=== PATIENT | female | born 1930 | race Caucasian/White ===

== ENCOUNTER 2017-06-14 15:50 | Emergency (ER) | payer MEDICARE ==
[2017-06-14 16:21] LABS: #Basophils 0.1 thou/uL (0.0-0.2); #Eosinphils 0.1 thou/uL (0.0-0.7); #Lymphocytes 1.7 thou/uL (1.20-3.40); #Monocytes 0.5 thou/uL (0.11-0.59); %Basophils 0.8 % (0.0-1.0); %Lymphocytes 26.5 % (21.0-51.0); %Monocytes 8.4 % (0.0-10.0); %Neutrophils 62.3 % (42.0-75.0); Hemoglobin 11.5 g/dL (12.0-16.0); Mean Corpuscular HGB CONC 31.2 g/dL (32.0-36.0); Mean Corpuscular Hemoglobin 30.6 pg (27.0-31.0); Mean Corpuscular Volume 98.1 fl (81.0-99.0); Mean Platelet Volume 5.5 fL (7.4-10.4); Platelet Count 197 thou/uL (130-400); RBC Distribution Width 13.6 % (11.5-14.5); Red Blood Cell (RBC) Count 3.77 mill/uL (4.20-5.40); White Blood Cell (WBC) Count 6.4 thou/uL (4.8-10.8)
[2017-06-14 16:38] LABS: ALT (SGPT) 11 U/L (8-55); AST (SGOT) 16 U/L (5-34); Albumin 3.8 g/dL (3.4-4.8); Alkaline Phosphatase 87 U/L (40-150); Anion Gap 12 mmol/L (10-20); BUN (Urea Nitrogen) 21 mg/dL (9.8-20.1); Bilirubin, Total 0.5 mg/dL (0.2-1.2); Calc. Creatinine Clearance 0 mL/min (70-130); Calcium 9.1 mg/dL (7.8-10.44); Carbon Dioxide 33 mmol/L (23-31); Chloride 103 mmol/L (98-107); Estimated GFR-MDRD 47; Globulin 3.9 g/dL (2.4-3.5); Glucose 125 mg/dL (83-110); Potassium 4.5 mmol/L (3.5-5.1); Protein, Total 7.7 g/dL (6.0-8.3); Sodium 143 mmol/L (136-145)
[2017-06-14 16:40] LABS: CKMB 0.8 ng/mL (0-6.6)
[2017-06-14] MEDS ORDERED: Furosemide 40 MG/4 ML VIAL ONE (17:16)
--- NOTE | 2017-06-14 22:13 | RAD ---
CHEST TWO VIEWS: 06/14/17 Comparison is made with an 05/12/15 study. Mild cardiomegaly is approximately the same as before. There are no congestive changes. There is a l ittle streaking in the right costophrenic angle, which is new. I cannot exclude an early infiltrate there. The right hilum is rather prominent in size, more so than before. While it is probably all pu lmonary artery, this might be worth consideration of an elective CT to remove all doubt. I would won bebo about an infiltrate in the left lung base, but this is difficult to be sure of on this exam. Art eriosclerotic change is seen in the aorta. There is deviation of the trachea towards the right at th e thoracic inlet which is not new. Presumably there is a left thyroid goiter or other pathology. IMPRESSION: 1. Cardiomegaly without congestive change. 2. Arteriosclerosis. 3. COPD. 4. Slight streaking in the right costophrenic angle. Equivocal left basilar infiltrate or fluid . 5. Prominence of the right hilum, a bit more so than in 2015. 6. Deviation of the trachea at the thoracic inlet. RECOMMENDATION: Given the multiplicity of findings, I feel it would be quite helpful in this patient to consider an elective CT scan, with contrast if possible, to evaluate all of these areas better. Code T POS: HOME
== END 2017-06-14 17:56 | disposition short-term general hospital (02) ==
LOC: BURERS 15:50
DX: I11.0 Hypertensive heart disease with heart failure (principal); I50.9 Heart failure, unspecified; K58.9 Irritable bowel syndrome, unspecified; G62.9 Polyneuropathy, unspecified; F32.9 Major depressive disorder, single episode, unspecified; Z79.82 Long term (current) use of aspirin; Z79.899 Other long term (current) drug therapy
CPT/HCPCS: 71020; 80053; 82553; 83880; 84484; 85025; 93005; 96374; J1940

== ENCOUNTER 2017-06-27 16:34 | Outpatient (CLI) | payer MEDICARE ==
[2017-06-27 17:36] LABS: Anion Gap 18 mmol/L (10-20); BUN (Urea Nitrogen) 74 mg/dL (9.8-20.1); Calc. Creatinine Clearance 0 mL/min (70-130); Calcium 9.1 mg/dL (7.8-10.44); Carbon Dioxide 30 mmol/L (23-31); Chloride 100 mmol/L (98-107); Estimated GFR-MDRD 24; Glucose 95 mg/dL (83-110); Sodium 143 mmol/L (136-145)
== END 2017-06-27 16:35 | disposition home or self-care (01) ==
LOC: HPCALD 16:34
PROVIDERS: ATTEND Family Medicine
DX: I50.32 Chronic diastolic (congestive) heart failure (principal)
CPT/HCPCS: 80048

== ENCOUNTER 2017-11-15 16:04 | Emergency (ER) | payer MEDICARE ==
[2017-11-15 16:49] LABS: #Lymphocytes 1.1 thou/uL (1.20-3.40); #Monocytes 0.4 thou/uL (0.11-0.59); #Neutrophils 8.3 thou/uL (1.40-6.50); %Basophils 0.4 % (0.0-1.0); %Eosinophils 0.1 % (0.0-10.0); %Lymphocytes 11.5 % (21.0-51.0); %Monocytes 3.8 % (0.0-10.0); %Neutrophils 84.2 % (42.0-75.0); Hemoglobin 11.8 g/dL (12.0-16.0); Mean Corpuscular HGB CONC 34.1 g/dL (32.0-36.0); Mean Corpuscular Hemoglobin 33.4 pg (27.0-31.0); Platelet Count 181 thou/uL (130-400); RBC Distribution Width 12.7 % (11.5-14.5); Red Blood Cell (RBC) Count 3.52 mill/uL (4.20-5.40); White Blood Cell (WBC) Count 9.9 thou/uL (4.8-10.8)
[2017-11-15 16:56] LABS: ALT (SGPT) 10 U/L (8-55); AST (SGOT) 16 U/L (5-34); Albumin 3.7 g/dL (3.4-4.8); Alkaline Phosphatase 80 U/L (40-150); Anion Gap 17 mmol/L (10-20); BUN (Urea Nitrogen) 24 mg/dL (9.8-20.1); Bilirubin, Total 0.9 mg/dL (0.2-1.2); Calc. Creatinine Clearance 0 mL/min (70-130); Calcium 9.4 mg/dL (7.8-10.44); Carbon Dioxide 30 mmol/L (23-31); Chloride 102 mmol/L (98-107); Estimated GFR-MDRD 46; Globulin 3.5 g/dL (2.4-3.5); Glucose 139 mg/dL (83-110); Protein, Total 7.2 g/dL (6.0-8.3); Sodium 144 mmol/L (136-145)
[2017-11-15 16:57] LABS: CKMB 1.7 ng/mL (0-6.6)
--- NOTE | 2017-11-15 18:35 | RAD ---
LEFT KNEE FOUR VIEWS 11/15/17 A total knee arthroplasty is in place. There is no sign of loosening of the hardware. No fracture or joint effusion was seen. IMPRESSION: No acute findings. POS: HOME
--- NOTE | 2017-11-15 18:36 | RAD ---
RIGHT KNEE FOUR VIEWS: 11/15/17 There is mild to moderate medial joint space narrowing and osteophytes typical of osteoarthritis. No fracture or joint effusion was seen. All bones appeared intact. IMPRESSION: Osteoarthritis. POS: HOME
--- NOTE | 2017-11-15 18:49 | RAD ---
PORTABLE CHEST 11/15/17 An AP portable film at 1640 is compared with a 05/12/15 study. Cardiomegaly is approximately the same as before. There are no clear congestive changes. There is a l ittle prominence of the interstitial markings, but not by a large amount. There is slight deviation o f the trachea at the thoracic inlet which was present before and is due to a left thyroid mass. Arter iosclerotic change is seen in the aorta. No pneumothorax, large pleural effusions or large infiltrate was seen. The right hilum is more promin ent than the left, though this could be in part due to the patient being turned to that side, which s he is. It is difficult to assess the left base well on this portable film. IMPRESSION: Chronic findings but no definite acute changes. If cardiopulmonary symptoms intervene, further studie s of the chest could be needed. POS: HOME
--- NOTE | 2017-11-15 18:53 | CT ---
CT OF THE BRAIN WITHOUT CONTRAST 11/15/17 Computed tomography of the brain was done following facial trauma. No prior scans were available for comparison. Severe diffuse deep white matter lucency is present consistent with chronic ischemic changes. An old stroke is seen in the right basal ganglia. There is compensatory dilatation of the frontal horn of th e right lateral ventricle as the result. Otherwise, the ventricles are normal in size for age and atr ophy. A cavum septum pellucidum and vergae was noted. No intracranial bleeding or extra-axial hematom a was seen. The calvarium appears intact with no skull fractures. There is a very large soft tissue hematoma just adjacent to the left orbit. The underlying bone appeared intact, however. The visible paranasal sinu ses are clear. The mastoid air cells are clear. IMPRESSION: 1. Severe chronic ischemic changes and old right sided stroke but no acute intracranial findings . 2. Large soft tissue hematoma adjacent to the left orbit without signs of fracture. POS: HOME
--- NOTE | 2017-11-15 18:55 | CT ---
CT OF THE FACIAL BONES 11/15/[address] of the face was performed following trauma. Axial slices were acquired, then coronal and s agittal reconstructions were done. A large hematoma and soft tissue swelling is seen just lateral to the superior part of the left orbit . One particularly large blood collection is fairly well confined and is 2.6 cm in diameter. the glob es themselves appear intact and each retro-orbital area appeared normal. No facial fractures were gama ntified. The orbital rims, zygomatic arches, maxilla, mandible, and nasal bones al appeared intact. T he paranasal sinuses are clear. IMPRESSION: 1. No bony fracture seen. Clear sinuses. 2. Large soft tissue hematoma just lateral to the superior left orbit. POS: HOME
--- NOTE | 2017-11-15 19:18 | CT ---
CT OF THE CERVICAL SPINE 11/15/[address] of the cervical spine was performed following trauma. Axial slices were acquired, then arelis nal and sagittal reconstructions were done. Additional axial slices were added to see the disc space regions better. No fracture, dislocation, or acute bony change was seen. There is some mild down slop ing of the superior end plate of C5, but this does not appear acute. There is no dislocation or marke d disc space narrowing. The C1 to dens distance is normal. Findings by level follow: C1-C2: No acute findings. C2-C3: No acute findings. C3-C4: No acute findings. C4-C5: Minor right foraminal narrowing due to facet arthritis. C5-C6: Mild bilateral foraminal narrowing. C6-C7: No acute findings. C7-T1: No acute findings. T1-T2: No acute findings. There is a large mass in the left lobe of the thyroid gland that descends inferiorly and is partially retrosternal. It is mixed density and causes deviation of the trachea to the right. Some nonspecific nodes are see in the deep cervical chains bilaterally. IMPRESSION: 1. No acute traumatic findings. 2. Very minor wedging of the superior end plate of C5, probably old. 3. 4 cm mass, mixed density, left lobe of the thyroid gland. Malignancy cannot be excluded. Roach henrietta, in this age group it is questionable whether one would want to aggressively pursue it much furth er. Findings on all scans discussed with Dr. Hardy at 1703 on 11/15/17. POS: HOME
== END 2017-11-15 17:34 | disposition home or self-care (01) ==
LOC: BURERS 16:04
DX: S00.03XA Contusion of scalp, initial encounter (principal); S05.12XA Contusion of eyeball and orbital tissues, left eye, initial encounter; S80.02XA Contusion of left knee, initial encounter; S80.01XA Contusion of right knee, initial encounter; I10 Essential (primary) hypertension; F32.9 Major depressive disorder, single episode, unspecified; Z79.899 Other long term (current) drug therapy; Z79.82 Long term (current) use of aspirin; W18.30XA Fall on same level, unspecified, initial encounter; Y92.009 Unspecified place in unspecified non-institutional (private) residence as the place of occurrence of the external cause
CPT/HCPCS: 36415; 70450; 70486; 71045; 72125; 80053; 82553; 83880; 84484; 85025

== ENCOUNTER 2017-12-04 13:52 | Emergency (ER) | payer MEDICARE ==
[2017-12-04 14:24] LABS: #Basophils 0.1 thou/uL (0.0-0.2); #Eosinphils 0.1 thou/uL (0.0-0.7); #Lymphocytes 1.7 thou/uL (1.20-3.40); #Monocytes 0.5 thou/uL (0.11-0.59); %Basophils 0.9 % (0.0-1.0); %Eosinophils 1.5 % (0.0-10.0); %Lymphocytes 22.9 % (21.0-51.0); %Monocytes 6.9 % (0.0-10.0); %Neutrophils 67.8 % (42.0-75.0); Hemoglobin 12.2 g/dL (12.0-16.0); Mean Corpuscular HGB CONC 34.9 g/dL (32.0-36.0); Mean Corpuscular Hemoglobin 33.7 pg (27.0-31.0); Mean Corpuscular Volume 96.6 fl (81.0-99.0); Mean Platelet Volume 6.3 fL (7.4-10.4); Platelet Count 227 thou/uL (130-400); RBC Distribution Width 12.6 % (11.5-14.5); Red Blood Cell (RBC) Count 3.61 mill/uL (4.20-5.40); White Blood Cell (WBC) Count 7.4 thou/uL (4.8-10.8)
[2017-12-04 14:26] LABS: PTT 33.8 SEC (22.9-36.1); Prothrombin Time 12.9 SEC (12.0-14.7)
[2017-12-04 14:37] LABS: ALT (SGPT) 10 U/L (8-55); AST (SGOT) 19 U/L (5-34); Albumin 3.5 g/dL (3.4-4.8); Alkaline Phosphatase 110 U/L (40-150); Anion Gap 16 mmol/L (10-20); BUN (Urea Nitrogen) 53 mg/dL (9.8-20.1); Bilirubin, Total 0.5 mg/dL (0.2-1.2); CK (CPK) 47 U/L (29-168); Calc. Creatinine Clearance 0 mL/min (70-130); Calcium 9.6 mg/dL (7.8-10.44); Carbon Dioxide 31 mmol/L (23-31); Chloride 100 mmol/L (98-107); Estimated GFR-MDRD 25; Globulin 3.9 g/dL (2.4-3.5); Glucose 122 mg/dL (83-110); Protein, Total 7.4 g/dL (6.0-8.3); Sodium 142 mmol/L (136-145)
[2017-12-04 14:38] LABS: CKMB 0.6 ng/mL (0-6.6)
--- NOTE | 2017-12-04 15:45 | CT ---
CT BRAIN WITHOUT CONTRAST: Date: 12-04-17 Comparison: 11-15-17 FINDINGS: Again seen is diffuse atrophy with moderate compensatory dilatation of the ventricles. There are diff use severe ischemic changes bilaterally. Encephalomalacia from an old CVA is seen in the right basal ganglia region. Other lacunar infarcts are probably present in the left basal ganglia area. There wer e no findings strongly suggestive of acute stroke. No mass, edema, or bleeding was seen. The calvariu m appears intact. There was no airfluid level in the sphenoid sinus and the mastoid air cells were cl ear. The visible paranasal sinuses are clear. IMPRESSION: Severe ischemic changes with old strokes noted as above. Exam little different than the 11-15 CT. POS: HOME
--- NOTE | 2017-12-04 15:46 | RAD ---
PORTABLE CHEST: Date: 12/04/17 Comparison made with the 11/15/17 study. FINDINGS: The right hilum is large, as has been mentioned before. I presume that scans have been done at this a amaury to better define it. The lungs show no lobar consolidation, edema, or focal acute infiltrate. I cannot assess the left bas e on this portable film. There might be a little pleural fluid here, but a better image would be need ed to be certain. Overall, changes since the 11/15/17 study are minimal. IMPRESSION: 1. Mild cardiomegaly without congestive change. 2. Large right hilum, similar to before. I assume the etiology is known. 3. Poorly seen left costophrenic angle. Cannot exclude some fluid here, but the appearance is not mu ch different than the prior study. POS: HOME
== END 2017-12-04 16:30 | disposition home or self-care (01) ==
LOC: BURERS 13:52
DX: S06.0X0A Concussion without loss of consciousness, initial encounter (principal); E86.0 Dehydration; T50.2X5A Adverse effect of carbonic-anhydrase inhibitors, benzothiadiazides and other diuretics, initial encounter; N17.9 Acute kidney failure, unspecified; K58.9 Irritable bowel syndrome, unspecified; I10 Essential (primary) hypertension; E53.8 Deficiency of other specified B group vitamins; F32.9 Major depressive disorder, single episode, unspecified; G62.9 Polyneuropathy, unspecified; W19.XXXA Unspecified fall, initial encounter
CPT/HCPCS: 70450; 71045; 80053; 82550; 82553; 84484; 85025; 85610; 85730; 93005; 94760; 96360

== ENCOUNTER 2018-01-03 12:46 | Outpatient (CLI) | payer MEDICARE ==
--- NOTE | 2018-01-04 07:31 | ULT ---
THYROID ULTRASOUND: 01/03/18 Comparison is made with a 11/15/17 CT of the cervical spine that suggested a left thyroid mass. Docume ntary images and worksheets were provided and reviewed. The patient's thyroid and neck does not image very well. The right lobe was somewhat enlarged, measuring 4.9 x 1.9 x 2.1 cm. There was a small 6 mm nodule in the upper pole of the right lobe that was hypoechoic and mixed echoes. Left lobe is quite large measuring 6.3 x 3.2 x 2.6 cm and it contains a solid mass attached to it gita t measures 4.6 x 2.6 x 4.0 cm. It does have blood flow within it. It was not seen completely due to o bscuration by a portion of the clavicle. IMPRESSION: 1. Thyromegaly. 2. 6 mm mixed echoes nodule, upper pole, right lobe. 3. 4.6 cm (at least) solid mass associated with the left lobe. Blood flow is present within the mass. POS: HOME
== END 2018-01-03 12:47 | disposition home or self-care (01) ==
LOC: BURULT 12:46
PROVIDERS: ATTEND Family Medicine
DX: E07.9 Disorder of thyroid, unspecified (principal); E04.1 Nontoxic single thyroid nodule
CPT/HCPCS: 76536

== ENCOUNTER 2018-03-05 10:50 | Inpatient (IN) | payer MEDICARE ==
[2018-03-05 11:28] LABS: #Basophils 0.1 thou/uL (0.0-0.2); #Eosinphils 0.1 thou/uL (0.0-0.7); #Lymphocytes 1.3 thou/uL (1.20-3.40); #Monocytes 0.4 thou/uL (0.11-0.59); #Neutrophils 4.2 thou/uL (1.40-6.50); %Basophils 1.1 % (0.0-1.0); %Eosinophils 1.5 % (0.0-10.0); %Lymphocytes 21.6 % (21.0-51.0); %Neutrophils 68.8 % (42.0-75.0); Hemoglobin 12.4 g/dL (12.0-16.0); Mean Corpuscular HGB CONC 33.2 g/dL (32.0-36.0); Mean Corpuscular Hemoglobin 31.2 pg (27.0-31.0); Mean Platelet Volume 4.9 fL (7.4-10.4); Platelet Count 197 thou/uL (130-400); RBC Distribution Width 14.2 % (11.5-14.5); Red Blood Cell (RBC) Count 3.96 mill/uL (4.20-5.40)
[2018-03-05 11:32] LABS: Clarity Cloudy (Clear); Specific Gravity, Urine 1.025 (1.005-1.030)
[2018-03-05 11:33] LABS: Glucose, Urine (Dipstick) Negative (Negative); Leukocyte Small (Negative); Nitrite Positive (Negative); Protein, Urine (Dipstick) 100 mg/dL (Neg-Trace); pH, Urine 5.5 (5.0-9.0)
[2018-03-05 11:34] LABS: Bilirubin Small (Negative); Blood, Urine Trace (Negative)
[2018-03-05 11:38] LABS: Bacteria/HPF 4+ HPF (None Seen); RBC/HPF 0-3 HPF (0-3); Squamous Epithelial 0-3 HPF (0-3); WBC/HPF 21-50 HPF (0-3)
[2018-03-05 11:41] LABS: ALT (SGPT) 12 U/L (8-55); AST (SGOT) 17 U/L (5-34); Albumin 3.6 g/dL (3.4-4.8); Alkaline Phosphatase 79 U/L (40-150); Anion Gap 15 mmol/L (10-20); BUN (Urea Nitrogen) 22 mg/dL (9.8-20.1); Bilirubin, Total 0.8 mg/dL (0.2-1.2); Calc. Creatinine Clearance 0 mL/min (70-130); Calcium 9.2 mg/dL (7.8-10.44); Carbon Dioxide 36 mmol/L (23-31); Chloride 104 mmol/L (98-107); Estimated GFR-MDRD 44; Globulin 3.6 g/dL (2.4-3.5); Glucose 100 mg/dL (83-110); Potassium 5.5 mmol/L (3.5-5.1); Protein, Total 7.2 g/dL (6.0-8.3); Sodium 149 mmol/L (136-145)
[2018-03-05 11:43] LABS: CKMB 1.1 ng/mL (0-6.6); Troponin I 0.026 ng/mL (< 0.028)
[2018-03-05] MEDS ORDERED: cefTRIAXone\\ROCEPHIN 2 GM VIAL ONE (11:48)
[2018-03-05] MEDS ORDERED: Sodium Chloride 0.9% 100 ML ONE ×2 (11:49→11:50)
[2018-03-05] MEDS ORDERED: Furosemide 40 MG/4 ML VIAL ONE (12:07)
--- NOTE | 2018-03-05 12:20 | CT ---
CT OF THE BRAIN WITHOUT CONTRAST: Date: 03/05/18 Comparison is made with the 12/04/17 study. FINDINGS: Old ischemic changes are seen in the deep white matter bilaterally consisting of prominent areas of h ypodensity. A prior focal stroke is seen in the region of the right basal ganglia. Overall, the appea kim of the brain appears little different than the November study. No new areas of stroke or bleeding seen. MRI would be much more sensitive to any acute event, particularly in view of the background fin dings. The ventricles are normal in size for age and atrophy, and adjacent strokes. No mass or edema seen. The visible paranasal sinuses are clear. IMPRESSION: Severe chronic ischemic changes and old strokes, but no acute finding. POS: HOME
--- NOTE | 2018-03-05 12:58 | RAD ---
PORTABLE CHEST: Date: 03/05/18 An AP portable film at 1109 hours is compared with the 12/04/17 study. As was mentioned previously, t he right hilum is enlarged, approximately to the same degree as previously. Cardiomegaly is present, though there are no clear congestive findings. At most, one could wonder about slight prominence of t he vessels compared to before, but the finding is marginal. The left base is difficult to see well. IMPRESSION: 1. Cardiomegaly. 2. Large right hilum as before. See CT report to follow. POS: HOME
--- NOTE | 2018-03-05 13:06 | CT ---
CT OF THE THORAX WITHOUT CONTRAST: Date: 03/05/[address] of the chest was done without IV contrast due to the patient's renal function. Axial slices were acquired, then coronal reconstructions were done. There appears to be a mass in the left lobe of the thyroid gland that measures about 3.6 cm across an d produces deviation of the trachea towards the right. Unfortunately, no IV contrast could be used du e to her renal function. There is a rounded area just below and behind the right atrium that is most likely mass or adenopathy, however, the vessels are all quite dilated in this patient and it could be vascular in nature, either pulmonary artery or vein on the right. There is volume loss in the left l ower lobe and probably a small amount of pleural fluid bilaterally. Basilar bronchiectasis is noted b ilaterally. Some scattered atelectasis is seen throughout, but no major lobar consolidation was seen. Coronary arteriosclerosis is present in all vessels. Scans into the upper abdomen reveal no gross ab normalities of the liver, spleen, pancreas, or adrenal glands. There has been a prior cholecystectomy . The common bile duct seems generous in size, but there is no intrahepatic ductal dilation. IMPRESSION: 1. Enlargement of the right hilum that could be due to adenopathy or mass. It has not grown much sin ce the November chest x-ray. IV contrast would be needed to separate it out better. 2. Volume loss of the left lower lobe, likely chronic. 3. Bibasilar bronchiectasis. 4. Cardiomegaly and coronary arteriosclerosis. 5. Left thyroid mass. POS: HOME
[2018-03-05] MEDS ORDERED: Ondansetron ODT 4 MG TAB PO PRN (13:28)
[2018-03-05] MEDS ORDERED: Ondansetron HCl/PF 4 MG/2 ML Vial IVP PRN (13:28)
[2018-03-05] MEDS ORDERED: Acetaminophen 325 MG TAB PO PRN (13:29)
[2018-03-05] MEDS ORDERED: Furosemide 40 MG/4 ML VIAL SLOW IVP SCH (14:00)
--- NOTE | 2018-03-05 14:15 | HP ---
CHIEF COMPLAINT: Altered mental status and jitteriness. HISTORY OF PRESENT ILLNESS: Ms. Davis is a pleasant 87-year-old female with past medical history of COPD, not currently on home O2, chronic diastolic congestive heart failure who presented to the Emergency Department today complaining of gradually worsening alteration of mental status. Per the patient, she has had some nonspecific symptoms over the last couple of weeks, which have included a nightly cough, chills starting 2 days ago, jitters starting yesterday after returning home from [facility] and increased somnolence. The patient reports that she has been compliant with her chronic medication regimen with the exception of missing one day of treatment last week noted due to medication still being in her pill minder. Family has also noted some slowness and some possible slurring of the speech and the patient admits to having no recollection of the events of the [facility] service that she attended yesterday morning. She denies any changes in her bowel habits. She has a history of nocturnal urination and has had some dysuria that is also above her baseline. In addition, the patient suffered a concussion in November of this year and had recurrent headache symptoms in the same location as previous over the past 1 week. PAST MEDICAL HISTORY: 1. Hypertension. 2. Urge/stress incontinence. 3. Lactose intolerance. 4. Irritable bowel syndrome. 5. Hyperlipidemia. 6. Depression. 7. Personal history of colon polyps. 8. Diverticulosis. 9. Venous insufficiency/reflux. 10. Diastolic dysfunction with left ventricular EF on 04/15 at the time of heart catheterization a 56% and most recent echocardiogram performed 06/2017 with left ventricular ejection fraction at 55%-60%, diastolic dysfunction, moderately dilated left atrium, mitral annular calcification, mild aortic stenosis, moderate aortic regurgitation, mild tricuspid regurgitation, mild pulmonic regurgitation. 11. Thyroid mass, status post recent biopsy with ENT on 02/09/2018, showing hyperplastic nodule. Per patient, no further intervention was recommended. 12. B12 deficiency. 13. Peripheral neuropathy. 14. Dry eye syndrome. 15. Osteoarthritis of the knees, status post knee replacement. 16. Normocytic anemia. 17. Chronic obstructive pulmonary disease. PAST SURGICAL HISTORY: 1. Bilateral cataracts in 2011. 2. Cholecystectomy/exploratory laparotomy for gangrenous area of the stomach after a hiatal hernia repair. 3. Colonoscopy 12/2010 with repeat recommended in 10 years. 4. Radiofrequency ablation of left lower extremity in 2010. 5. Hiatal hernia repair. 6. Left total knee arthroplasty 08/2015. CURRENT MEDICATIONS: 1. Vitamin B12 of 100 mcg 1 p.o. daily. 2. Atorvastatin 20 mg p.o. daily. 3. Aspirin 81 mg p.o. daily. 4. Centrum Silver 1 p.o. daily. 5. Hammond 3 fatty acid 2 p.o. b.i.d. 6. Calcium/vitamin 600/400 one p.o. b.i.d. 7. Furosemide 40 mg once a day. 8. Atenolol 50 mg p.o. daily. 9. Escitalopram 5 mg p.o. daily. 10. Olanzapine 2.5 mg p.o. at bedtime. 11. Losartan potassium 100 mg p.o. daily. ALLERGIES: ADVIL PM; Aleve; NITROFURANTOIN, which causes a rash; TRAMADOL, which causes hallucinations. SOCIAL HISTORY: The patient is a nonsmoker, denies illicit drugs or alcohol use. She lives at home with her daughter. IMMUNIZATION HISTORY: Shows that she is up to date for Prevnar, Pneumovax, and influenza vaccination. FAMILY HISTORY: Noncontributory. REVIEW OF SYSTEMS: General: No fever. Positive chills as per HPI. Positive fatigue/weakness. No focal weakness noted. HEENT: Denies nasal congestion, sore throat, rhinorrhea, hearing deficit, vision changes. Cardiovascular: Denies chest pain, orthopnea, PND, palpitations. Respiratory: Denies dyspnea. Positive cough at night only. Nonproductive. No hemoptysis. Gastrointestinal: Denies constipation, diarrhea, melena, hematochezia, nausea, vomiting, diarrhea, pain in the abdomen. Extremities: Denies swelling above her baseline. She does have chronic joint pain from osteoarthritis and ambulates with walker assist. Neurologic: Patient denies numbness, paresthesias, focal weakness, diplopia. Positive slurred speech. Positive confusion. Positive memory deficit. Positive tremor described at the upper extremities only. PHYSICAL EXAMINATION: VITAL SIGNS: Stable with blood pressure 169/58, respirations 20, 88% O2 sat on room air up to 95% with 2 liter nasal cannula applied. GENERAL: Well-developed, obese female, pleasant, alert and oriented x3. No acute distress. HEENT: Normocephalic, atraumatic. Pupils equal, round, reactive to light and accommodation. Extraocular muscles intact. Nares are patent without discharge. Tongue protrudes in the midline. No tonsillar erythema or exudate. NECK: Supple, without lymphadenopathy, thyromegaly, JVD or bruit. CARDIOVASCULAR: Regular rate and rhythm with 3/6 systolic ejection murmur best heard left upper sternal border with radiation to the back. LUNGS: Diminished air entry in the bases. No crackles or wheezes. No increased work of breathing. Nasal cannula in place. ABDOMEN: Positive bowel sounds in all four quadrants. Soft, nontender, nondistended, no masses, guarding, or rebound tenderness. EXTREMITIES: No cyanosis or clubbing. The patient has 3 mm nonpitting edema, right greater than left, slightly increased from baseline examination. NEUROLOGIC: Cranial nerves II-XII grossly intact without focal deficits. No tremor appreciated. Some slowing and slight slurring of the speech noted. Gross Motor 5/5 bilaterally upper and lower extremities. LABORATORY DATA: White count 6.0, hemoglobin 12.4, hematocrit 37.2, platelet 197 with 68% neutrophils and 21% lymphocytes. Sodium 149, potassium 5.5, chloride 104, bicarbonate 36, BUN 22, creatinine 1.16, glucose 100, lactic acid 1.6, calcium 9.2, total bilirubin 0.8, AST 17, ALT 12, alkaline phosphatase 79, CK-MB 1.1, troponin I 0.026, BNP 509.2, albumin 3.6. Urinalysis significant for 100 protein, trace ketones, trace blood, positive nitrite, small bilirubin, small leukocyte esterase, 0-3 RBC, 21-50 WBC, 4+ bacteria. Urine and blood cultures are pending. IMAGIN. Chest x-ray shows prominent right hilum and cardiomegaly without clear congestive findings. Due to the prominence of the right hilum, chest CT was performed, but it has not yet read which did not show any overt mass in this region, but does have some nonspecific lymphadenopathy noted. The significance of which is unknown. Left basilar atelectasis without focal infiltrate. 2. CT of the brain shows severe chronic ischemic changes and old strokes, but no acute findings. ASSESSMENT AND PLAN: 1. Altered mental status. This is likely secondary to a urinary tract infection plus acute exacerbation of diastolic congestive heart failure. We will treat and monitor. 2. Urinary tract infection. The patient was treated with Rocephin in the emergency room. We will continue this. Urine culture and blood cultures are pending. 3. Diastolic congestive heart failure. Patient's echocardiogram has been performed in the last year. She will be continued on her angiotensin receptor danni, beta danni. She was given 40 mg of Lasix in the ER per IV. We will monitor urine output and continue diuresis. Strict ins and outs with daily weights and one and a half liter fluid restriction, low sodium diet. 4. Hyperlipidemia. The patient's statin will be continued as well as her aspirin. 5. Chronic obstructive pulmonary disease. We will continue O2 p.r.n. to keep sats greater than or equal to 92%. We will order neb treatments p.r.n. Will need to follow up radiology read on the chest CT regarding the right hilum. 6. Depression. The patient's escitalopram and olanzapine will be continued. 7. Hypertension. See above. We will monitor. 8. Venous insufficiency. The patient will be recommended leg elevation to help resolve. 9. Prophylaxis. We will give Pepcid and place SCDs. CODE STATUS: The patient desires FULL CODE status at this time. MTDD
[2018-03-05] MEDS: Dextrose 5 %-0.45 % NaCl 1,000 ML IV SCH (14:38)
[2018-03-05] MEDS: Furosemide 40 MG/4 ML VIAL SLOW IVP SCH (18:15)
[2018-03-05] MEDS ORDERED: cloNIDine 0.1 MG TAB PO PRN (18:57)
[2018-03-05] MEDS: Fish Oil 1,000 MG CAP PO SCH (20:31)
[2018-03-05] MEDS: OLANZapine ODT 5 MG TAB PO SCH (20:31)
[2018-03-05] MEDS: Calcium Carbonate 500 MG ChewTAB PO SCH (20:31)
[2018-03-05] MEDS: Atorvastatin Calcium 10 MG TAB PO SCH (20:31)
[2018-03-05] MEDS: Atenolol 50 MG TAB PO SCH (20:32)
[2018-03-05] MEDS: Famotidine 20 MG TAB PO SCH (20:32)
[2018-03-05] MEDS ORDERED: Non-Formulary Item 1 EACH (Omega-3 Fatty Acids/Fish Oil [Omega 3 1,000 Mg Softgel] 1 CAP) PO SCH (21:00)
[2018-03-05] MEDS ORDERED: OLANZAPINE 2.5 MG PO SCH (21:00)
[2018-03-05] MEDS ORDERED: CALCIUM CARBONATE 600 MG PO SCH (21:00)
[2018-03-05] MEDS ORDERED: Non-Formulary Item 1 EACH (Atorvastatin Calcium [Lipitor] 20 MG) PO SCH (21:00)
[2018-03-06] MEDS: Furosemide 40 MG/4 ML VIAL SLOW IVP SCH (01:52)
[2018-03-06 04:56] VITALS: BMI 37.2
[2018-03-06 05:06] LABS: #Basophils 0.1 thou/uL (0.0-0.2); #Eosinphils 0.1 thou/uL (0.0-0.7); #Monocytes 0.5 thou/uL (0.11-0.59); #Neutrophils 5.2 thou/uL (1.40-6.50); %Basophils 1.1 % (0.0-1.0); %Eosinophils 1.7 % (0.0-10.0); %Lymphocytes 15.3 % (21.0-51.0); %Monocytes 6.6 % (0.0-10.0); %Neutrophils 75.3 % (42.0-75.0); Hemoglobin 11.2 g/dL (12.0-16.0); Mean Corpuscular Hemoglobin 30.9 pg (27.0-31.0); Mean Corpuscular Volume 93.8 fl (81.0-99.0); Mean Platelet Volume 5.2 fL (7.4-10.4); Platelet Count 171 thou/uL (130-400); RBC Distribution Width 13.9 % (11.5-14.5); Red Blood Cell (RBC) Count 3.62 mill/uL (4.20-5.40); White Blood Cell (WBC) Count 6.8 thou/uL (4.8-10.8)
[2018-03-06 05:15] LABS: Anion Gap 15 mmol/L (10-20); BUN (Urea Nitrogen) 18 mg/dL (9.8-20.1); Calc. Creatinine Clearance 47 mL/min (70-130); Calcium 8.5 mg/dL (7.8-10.44); Carbon Dioxide 34 mmol/L (23-31); Chloride 101 mmol/L (98-107); Estimated GFR-MDRD 43; Glucose 104 mg/dL (83-110); Potassium 5.5 mmol/L (3.5-5.1); Sodium 144 mmol/L (136-145)
[2018-03-06] MEDS: Calcium Carbonate 500 MG ChewTAB PO SCH ×2 (08:35→20:28)
[2018-03-06] MEDS: Famotidine 20 MG TAB PO SCH ×2 (08:36→20:27)
[2018-03-06] MEDS: Cyanocobalamin (Vitamin B-12) 1,000 MCG TAB PO SCH (08:36)
[2018-03-06] MEDS ORDERED: Lorazepam 0.5 MG TAB PO PRN (08:36)
[2018-03-06] MEDS: Fish Oil 1,000 MG CAP PO SCH ×2 (08:37→20:26)
[2018-03-06] MEDS: Multivit, Therapeutic 1 TAB PO SCH (08:37)
[2018-03-06] MEDS: Escitalopram Oxalate 20 mg Tablet PO SCH (08:38)
[2018-03-06] MEDS: Losartan Potassium 50 MG TAB PO SCH (08:38)
[2018-03-06] MEDS: Aspirin 81 mg Enteric Coated Tablet PO SCH (08:39)
[2018-03-06] MEDS ORDERED: Non-Formulary Item 1 EACH (Multivitamin [Multivitamins] 1 CAP) PO SCH (09:00)
[2018-03-06] MEDS ORDERED: Furosemide 40 MG/4 ML VIAL SLOW IVP SCH (09:00)
[2018-03-06] MEDS ORDERED: Non-Formulary Item 1 EACH (Losartan Potassium [Losartan Potassium] 100 MG) PO SCH (09:00)
[2018-03-06] MEDS ORDERED: Non-Formulary Item 1 EACH (Escitalopram Oxalate [Escitalopram Oxalate] 5 MG) PO SCH (09:00)
[2018-03-06] MEDS: Dextrose 5 %-0.45 % NaCl 1,000 ML IV SCH (10:21)
[2018-03-06] MEDS ORDERED: cefTRIAXone\\ROCEPHIN 1 GM in Sodium Chloride 0.9% 100 ML IVPB SCH ×2 (12:00→23:59)
[2018-03-06] MEDS ORDERED: Albuterol Sulfate 2.5 mg/3 ml Neb NEB PRN (18:02)
[2018-03-06] MEDS: OLANZapine ODT 5 MG TAB PO SCH (20:26)
[2018-03-06] MEDS: Atorvastatin Calcium 10 MG TAB PO SCH (20:27)
[2018-03-06] MEDS: Atenolol 50 MG TAB PO SCH (20:27)
[2018-03-07 04:30] LABS: Hemoglobin 11.3 g/dL (12.0-16.0); Mean Corpuscular Volume 96.2 fL (81.0-99.0); Red Blood Cell (RBC) Count 3.61 mill/uL (4.20-5.40); White Blood Cell (WBC) Count 6.9 thou/uL (4.8-10.8)
[2018-03-07 04:31] LABS: #Lymphocytes 0.7 thou/uL (1.20-3.40); #Neutrophils 6.1 thou/uL (1.40-6.50); %Basophils 0.3 % (0.0-1.0); %Eosinophils 0.1 % (0.0-10.0); %Lymphocytes 10.6 % (21.0-51.0); %Monocytes 0.5 % (0.0-10.0); %Neutrophils 88.5 % (42.0-75.0); Mean Corpuscular HGB CONC 32.6 g/dL (32.0-36.0); Mean Corpuscular Hemoglobin 31.3 pg (27.0-31.0); Mean Platelet Volume 5.6 fL (7.4-10.4); Platelet Count 157 thou/uL (130-400); RBC Distribution Width 13.8 % (11.5-14.5)
[2018-03-07 04:38] LABS: Anion Gap 13 mmol/L (10-20)
[2018-03-07 04:40] LABS: BUN (Urea Nitrogen) 23 mg/dL (9.8-20.1); Calc. Creatinine Clearance 29 mL/min (70-130); Carbon Dioxide 35 mmol/L (23-31); Chloride 101 mmol/L (98-107); Estimated GFR-MDRD 24; Potassium 4.9 mmol/L (3.5-5.1); Sodium 144 mmol/L (136-145)
[2018-03-07 04:41] LABS: Calcium 8.3 mg/dL (7.8-10.44); Glucose 170 mg/dL (83-110)
[2018-03-07 05:09] VITALS: BP 108/52
[2018-03-07] MEDS ORDERED: Furosemide 40 MG/4 ML VIAL SLOW IVP SCH ×2 (06:30→12:00)
--- NOTE | 2018-03-07 07:37 | RAD ---
PORTABLE CHEST: Date: 03/07/18 Comparison made with the 03/05/18 study. The vessels have become more congested over time. Additional ly, there is now some infiltrate in the right base, as well as the right pleural effusion. It is diff icult to assess the right hilum today. It is difficult to assess the left base. The cardiac size is e nlarged, but about the same. IMPRESSION: 1. Right basilar infiltrate and effusion, presumably pneumonia, a new finding since 03/05/18. 2. Vessels slightly more prominent than previously. There may be an element of congestion. CODE T. POS: HOME
[2018-03-07] MEDS ORDERED: Azithromycin 500 MG in Sodium Chloride 0.9% 250 ML 250 ML IVPB SCH (08:30)
[2018-03-07] MEDS: Fish Oil 1,000 MG CAP PO SCH (09:04)
[2018-03-07] MEDS: Calcium Carbonate 500 MG ChewTAB PO SCH (09:04)
[2018-03-07] MEDS: Multivit, Therapeutic 1 TAB PO SCH (09:04)
[2018-03-07] MEDS: Escitalopram Oxalate 20 mg Tablet PO SCH (09:05)
[2018-03-07] MEDS: Aspirin 81 mg Enteric Coated Tablet PO SCH (09:06)
[2018-03-07] MEDS: Cyanocobalamin (Vitamin B-12) 1,000 MCG TAB PO SCH (09:06)
[2018-03-07] MEDS: Losartan Potassium 50 MG TAB PO SCH (09:06)
[2018-03-07] MEDS: Famotidine 20 MG TAB PO SCH (09:07)
[2018-03-07 09:24] VITALS: TEMP 98.7
--- NOTE | 2018-03-07 12:49 | DIS ---
ADMISSION DIAGNOSES: 1. Diastolic congestive heart failure, acute on chronic. 2. Urinary tract infection. 3. Hyperkalemia. 4. Chronic kidney disease stage 3. DISCHARGE DIAGNOSES: 1. Diastolic congestive heart failure, acute on chronic. 2. Klebsiella urinary tract infection 3. Hyperkalemia, resolved. 4. Right basilar pneumonia. 5. Asthma exacerbation. 6. Chronic kidney disease stage 3. 7. Right hilar adenopathy vs. mass. ATTENDING PHYSICIAN: Dr. Debbie Langston. PROCEDURES: 1. Chest x-ray from date of admission showing cardiomegaly and large right hilum. 2. CT brain from date of admission without contrast showing severe chronic ischemic changes and old strokes, but no acute findings. 3. CT scan of the chest performed date of admission showing enlargement of the right hilum that could be due to adenopathy or mass, has not grown much since November chest x-ray. IV contrast was recommended to better differentiate. Volume loss of the left lower lobe, likely chronic. Bibasilar bronchiectasis. Cardiomegaly and coronary arteriosclerosis. Left thyroid mass. 4. Chest x-ray from the date of transfer showing right basilar infiltrate and effusion, presumably pneumonia and slightly more prominent vessels suggestive of congestion. 5. Blood culture x2 negative for growth at 48 hours. 6. Urine culture shows Klebsiella pneumoniae sensitive to cephalosporins. HISTORY AND PHYSICAL EXAMINATION: Please see dictated report from the date of admission. HOSPITAL COURSE: Ms. Davis is an 87-year-old female with a past medical history of diastolic congestive heart failure and asthma as well as chronic kidney disease stage 3, who presented to the ER with nonspecific complaints over the past couple of weeks including a nighttime cough, dysuria, increased somnolence with jitteriness. Workup included cardiac enzymes which were negative and a lactic acid level which was negative. However, B-type natriuretic peptide was elevated. She did not have a leukocytosis. Her renal function was at baseline. She had an abnormal urinalysis suggestive of a urinary tract infection and was admitted for suspected acute on chronic diastolic congestive heart failure exacerbation and urinary tract infection. Regarding the heart failure, the patient was given IV Lasix x3 consecutive doses with diuresis achieved. Performed daily weights and strict I's and O's and a 1500 mL fluid restriction. Her B-type natriuretic peptide improved the following day; however, she continued to appear volume overloaded and was treated with another dose of Lasix IV. This morning based on her chest x-ray findings and an increase in her B-type natriuretic peptide we did give her an early dose of Lasix and have planned to give her an additional dose at noon today. She initially lost 4 pounds and then gained 1 pound back in the last 24 hours. For her UTI she was started on Rocephin. Culture results came back today and show it to be sensitive to that agent. The patient developed some wheezing yesterday and had a history of asthma. She was placed on scheduled nebs and did require O2 since her admission of 2-3 liters per minute. Her symptoms improved with nebs, IV Solu-Medrol was added which improved the wheezing on her examination today. She does have some steroid-induced hyperglycemia as a result. The patient was also found to have a new right basilar infiltrate today and we added azithromycin prior to her transfer. The CT chest was abnormally, and IV contrast was recommended to better delineate mass vs. adenopathy of the right hilum. Her creatinine elevation today prohibited performing this study. The patient initially with hyperkalemia of 5.5 and this is subsequently corrected to 4.9 on the date of transfer with the diuretics. The patient with history of chronic kidney disease stage 3. Her BUN and creatinine are elevated today at 23 and 1.96, which is a new finding. The patient continues to have some intermittent amplitude tremors of bilateral upper extremities and the face. She makes poor eye contact and has essentially become unable to feed herself due to the tremors. These do not occur when she is asleep. We do not have MRI here. The etiology of this is unclear and therefore, I spoke with the Hospitalist team today about transferring her to a higher level of care to possibly get a neurologic consultation and possible imaging. Dr. Davila has accepted the patient for the hospitalist group and she will be transferred there in stable condition to the stroke unit. DISPOSITION: Transfer to [facility]. MEDICATIONS: 1. Hobart 3 fatty acid 1000 mg 1 p.o. b.i.d. 2. Atenolol 100 mg p.o. at bedtime. 3. Calcium carbonate 600 mg p.o. b.i.d. 4. Olanzapine 2.5 mg p.o. at bedtime. 5. Losartan 100 mg p.o. daily. 6. Escitalopram 5 mg p.o. daily. 7. Multivitamin 1 p.o. daily. 8. Vitamin B12 1000 mcg p.o. daily. 9. Lipitor 20 mg p.o. at bedtime. 10. Aspirin 81 mg p.o. daily. 11. Methylprednisolone 80 mg IV q.6 hours. 12. Clonidine 0.1 mg p.o. b.i.d. p.r.n. SBP greater than or equal to 180 and DBP greater than or equal to 100. 13. Rocephin 1 gram IV 12 hours. 14. Ativan 0.5 mg p.o. q.4h. p.r.n. 15. DuoNeb 3 mL nebulized q.6 and albuterol 0.083% nebulized q.2 hours p.r.n. 16. Lasix 40 mg IV, received at 6 o'clock today and ordered to receive again at 12. 17. Pepcid 20 mg p.o. b.i.d. 18. Zithromax 500 mg IV q.24 hours. 19. Tylenol 650 mg p.o. q.4. p.r.n. CODE STATUS: The patient remains a full code status. FOLLOWUP: Follow up will be with me, her primary care physician, in approximately 10-14 days after her discharge. DENITA
== END 2018-03-07 10:20 | disposition short-term general hospital (02) | DRG 291 ==
LOC: BURERS 10:50 → BURMED 12:35
PROVIDERS: ADMIT Family Medicine; ATTEND Family Medicine
DX: I13.0 Hypertensive heart and chronic kidney disease with heart failure and stage 1 through stage 4 chronic kidney disease, or unspecified chronic kidney disease (principal); I50.33 Acute on chronic diastolic (congestive) heart failure; J18.9 Pneumonia, unspecified organism; J96.21 Acute and chronic respiratory failure with hypoxia; J96.22 Acute and chronic respiratory failure with hypercapnia; N39.0 Urinary tract infection, site not specified; J44.0 Chronic obstructive pulmonary disease with (acute) lower respiratory infection; J45.901 Unspecified asthma with (acute) exacerbation; E78.5 Hyperlipidemia, unspecified; F32.9 Major depressive disorder, single episode, unspecified; G62.9 Polyneuropathy, unspecified; D64.9 Anemia, unspecified; Z96.652 Presence of left artificial knee joint; Z79.82 Long term (current) use of aspirin; Z88.6 Allergy status to analgesic agent; Z88.5 Allergy status to narcotic agent; Z88.8 Allergy status to other drugs, medicaments and biological substances; N18.3 Chronic kidney disease, stage 3 (moderate); B96.1 Klebsiella pneumoniae [K. pneumoniae] as the cause of diseases classified elsewhere; E87.5 Hyperkalemia; G25.3 Myoclonus; T38.0X5A Adverse effect of glucocorticoids and synthetic analogues, initial encounter; R73.9 Hyperglycemia, unspecified
CPT/HCPCS: 36415; 51701; 70450; 71045; 71250; 80048; 80053; 81003; 81015; 82553; 83605; 83880; 84484; 85025; 87040; 87077; 87086; 87186; 93005; 94760; 96361; 96365; 96375; A4216; A4353; J0456; J0696; J1940; J2920; J7050; J7620

== ENCOUNTER 2018-03-09 15:52 | Inpatient (IN) | payer MEDICARE ==
[2018-03-09] MEDS ORDERED: Acetaminophen 325 MG TAB PO PRN (17:57)
[2018-03-09] MEDS ORDERED: cloNIDine 0.1 MG TAB PO PRN (17:57)
[2018-03-09] MEDS ORDERED: Albuterol Sulfate 2.5 mg/3 ml Neb NEB PRN (17:57)
[2018-03-09] MEDS ORDERED: cefTRIAXone\\ROCEPHIN 1 GM VIAL IVPB SCH (18:00)
[2018-03-09] MEDS ORDERED: Furosemide 40 MG/4 ML VIAL SLOW IVP SCH (18:15)
[2018-03-09] MEDS: Calcium Carbonate 500 MG TAB PO SCH (20:15)
[2018-03-09] MEDS ORDERED: Atorvastatin Calcium 10 MG TAB PO SCH (21:00)
[2018-03-10 05:48] LABS: Anion Gap 14 mmol/L (10-20); BUN (Urea Nitrogen) 44 mg/dL (9.8-20.1); Calc. Creatinine Clearance 0 mL/min (70-130); Calcium 8.5 mg/dL (7.8-10.44); Carbon Dioxide 30 mmol/L (23-31); Chloride 109 mmol/L (98-107); Estimated GFR-MDRD 35; Glucose 102 mg/dL (83-110); Potassium 4.5 mmol/L (3.5-5.1); Sodium 148 mmol/L (136-145)
[2018-03-10 06:19] LABS: #Monocytes 0.6 thou/uL (0.11-0.59); #Neutrophils 5.5 thou/uL (1.40-6.50); %Basophils 0.6 % (0.0-1.0); %Eosinophils 0.2 % (0.0-10.0); %Lymphocytes 13.9 % (21.0-51.0); %Monocytes 8.6 % (0.0-10.0); %Neutrophils 76.7 % (42.0-75.0); Hemoglobin 10.7 g/dL (12.0-16.0); Mean Corpuscular HGB CONC 33.3 g/dL (32.0-36.0); Mean Corpuscular Hemoglobin 31.5 pg (27.0-31.0); Mean Corpuscular Volume 94.6 fl (81.0-99.0); Mean Platelet Volume 5.3 fL (7.4-10.4); Platelet Count 113 thou/uL (130-400); RBC Distribution Width 14.1 % (11.5-14.5); Red Blood Cell (RBC) Count 3.41 mill/uL (4.20-5.40); White Blood Cell (WBC) Count 7.1 thou/uL (4.8-10.8)
[2018-03-10 06:25] LABS: MDiff Complete? YES
[2018-03-10] MEDS ORDERED: predniSONE 20 MG TAB PO SCH (08:00)
[2018-03-10] MEDS ORDERED: Multivit, Therapeutic 1 TAB PO SCH (09:00)
[2018-03-10] MEDS ORDERED: Aspirin 81 mg Enteric Coated Tablet PO SCH (09:00)
[2018-03-10] MEDS ORDERED: Famotidine 20 MG TAB PO SCH (09:00)
[2018-03-10] MEDS ORDERED: Fish Oil 1,000 MG CAP PO SCH (09:00)
[2018-03-10] MEDS ORDERED: Cyanocobalamin (Vitamin B-12) 1,000 MCG TAB PO SCH (09:00)
[2018-03-10] MEDS ORDERED: Escitalopram Oxalate 20 mg Tablet PO SCH (09:00)
[2018-03-10] MEDS ORDERED: Furosemide 100 MG/10 ML VIAL SLOW IVP SCH (12:15)
--- NOTE | 2018-03-10 12:29 | RAD ---
PORTABLE CHEST: DATE: 03/10/18. FINDINGS: An AP portable film at 1128 is compared with a 03/08/18 study. Cardiomegaly is present as before. The vessels have become quite congested in the interval. There a re bilateral pleural effusions present but more so on the left than right. The right hilum is very prominent in size, something that has been mentioned previously. IMPRESSION: Development of (or worsening)congestive heart failure. Temporary report taken to nurse's station at noon on 03/10/18. CODE CR POS: HOME
[2018-03-10] MEDS: Calcium Carbonate 500 MG TAB PO SCH (15:25)
[2018-03-10] MEDS ORDERED: cefTRIAXone\\ROCEPHIN 1 GM in Sodium Chloride 0.9% 100 ML IVPB SCH (17:00)
--- NOTE | 2018-03-10 17:26 | HP ---
DATE OF ADMISSION: 03/09/2018 Late dictation for visit that occurred at approximately 1800. CHIEF COMPLAINT: Skilled rehabilitation. HISTORY OF PRESENT ILLNESS: Ms. Davis is an 87-year-old female who was admitted to this facility on 03/05/2018 for acute exacerbation of diastolic congestive heart failure, urinary tract infection that subsequently grew out Klebsiella sensitive to all agents, altered mental status with an initial CT scan of the brain negative for acute findings, who was admitted, diuresed, but continued to have some upper extremity and facial jerking movements. She also had a bump in her renal function after diuresis. She was treated empirically with Rocephin. I recommended to transfer to higher level of care on 03/07/2018 and hospitalists admitted the patient for Neurologic consultation, possible repeat imaging. During the hospitalization, she had another CT scan of the brain without contrast with evidence of significant chronic ischemic disease with superimposed remote infarctions and compensatory dilatation of the ventricular system, but no acute intracranial hemorrhage or mass effect. She also had a neurological consultation with Dr. Frances Gerard on 03/07/2018 and was felt that her altered mental status was likely secondary to toxic metabolic encephalopathy due to her urinary tract infection with the generalized shaking likely secondary to asterixis. An EEG was performed that did not show any epileptiform discharges, sub-transient or asymmetry and he recommended obtaining MRI of the brain without contrast and to continue supportive care. He recommended holding off on starting any antiepileptic medication for now as this was her first episode and she had the underlying UTI, which could predispose her to having the episodes. Neurology signed off. The brain MRI was performed on 03/08/2018 and showed no acute territorial infarction or acute mass effect, moderate chronic microvascular ischemic disease with superimposed lacunar infarctions and global atrophy. She also had a code green upon arrival on 03/07/2018 and Pulmonology was consulted due to respiratory distress. Dr. Talley saw the patient and recommended minimizing sedation medications and a single antibiotic renally dosed for her infections as well as slow hydration. Chest x-ray was performed on the 03/08/2018 that showed slight improved aeration of the lungs with decrease in pleural fluid and pulmonary vascular congestion. She had an area in the right hilum that was either mass versus infiltrate and he felt that she was not a good candidate for invasive studies to try to determine the etiology of the mass, so no additional pulmonary workup was undertaken for this. The patient was deemed stable for transfer back to our facility yesterday. Apparently she was due for her Rocephin at that time and upon arrival, the patient was on 100% nonrebreather and was noted to have edema to the extremities. Her IV fluids were going at a rate of 125 mL per hour. She was experiencing some respiratory distress. I evaluated her at the bedside along with nursing staff and she proceeded to have an episode of emesis that she quickly swallowed. Therefore, we did not see the appearance of it. Upon repositioning and into the supine status, the patient was successfully weaned from the nonrebreather to 4 liter nasal cannula with O2 sats sustained in the 90s. The patient is alert and able to answer my questions and at this time has no complaints. PAST MEDICAL HISTORY: 1. Hypertension. 2. Urge/stress incontinence. 3. Lactose intolerance. 4. Irritable bowel syndrome. 5. Hyperlipidemia. 6. Depression. 7. Personal history of colon polyps. 8. Diverticulosis. 9. Venous insufficiency/reflux. 10. Diastolic dysfunction with left ventricular ejection fraction on 04/2015 at the time of heart catheterization, a 56% and most recent echocardiogram performed 06/2017 with left ventricular ejection fraction of 55%-60%, diastolic dysfunction, moderately dilated left atrium, mitral annular calcification, mild aortic stenosis, moderate aortic regurgitation, mild tricuspid regurgitation, and mild pulmonic regurgitation. 11. Thyroid mass, status post recent biopsy with ENT on 02/09/2018 showing hyperplastic nodule. Per patient, no further intervention was recommended. 12. B12 deficiency. 13. Peripheral neuropathy. 14. Dry eye syndrome. 15. Osteoarthritis of the knees, status post knee replacement. 16. Normocytic anemia. 17. Asthma. 18. Recent UTI, Klebsiella. 19. 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 PAST SURGICAL HISTORY: 1. Bilateral cataracts in 2011. 2. Cholecystectomy/ex lap for gangrenous area of the stomach after hiatal hernia repair. 3. Colonoscopy 12/2010 with repeat recommended in 10 years. 4. Radiofrequency ablation of left lower extremity in 2010. 5. Hiatal hernia repair. 6. Left total knee arthroplasty, 08/2015. ALLERGIES: ADVIL PM, ALEVE, NITROFURANTOIN, which causes a rash, TRAMADOL, which causes hallucinations. SOCIAL HISTORY: The patient is a nonsmoker. Denies illicit drugs or alcohol use. She lives at home. IMMUNIZATION HISTORY: Shows that she is up to date for Prevnar, Pneumovax and influenza vaccination. FAMILY HISTORY: Noncontributory. MEDICATIONS: 1. Tylenol 650 mg p.o. q.4. p.r.n. 2. Ventolin 2.5 mg nebs q.4 hours p.r.n. 3. DuoNeb 3 mL q.6 hours scheduled. 4. Ecotrin 81 mg p.o. daily. 5. Lipitor 20 mg p.o. at bedtime. 6. Os-Jaya 500 mg p.o. b.i.d. 7. Catapres 0.1 mg p.o. b.i.d. p.r.n., SBP greater than 180 or DBP greater than 100. 8. Vitamin B12 1000 mcg p.o. q.a.m. 9. Lexapro 5 mg p.o. q.a.m. 10. Pepcid 20 mg p.o. daily. 11. Fish oil 2000 mg p.o. b.i.d. 12. Theragran 1 p.o. daily. 13. Zyprexa 2.5 mg p.o. at bedtime. 14. Rocephin 1 gram IV q.24 hours. 15. Prednisone 20 mg p.o. q.a.m. REVIEW OF SYSTEMS: General: No fever. Positive weakness since her hospitalization. HEENT: Denies vision changes, sore throat, rhinorrhea, ear pain. Cardiovascular: Denies chest pain, palpitations. Respiratory: Positive shortness of breath. No cough or hemoptysis. Gastrointestinal: No constipation, diarrhea, abdominal pain. Episode of emesis at the bedside upon evaluation today. Genitourinary: Normal urinary output without odor. Denies dysuria. Lymphatic: Patient with chronic lower extremity edema with increase over the past few hours per family description including the upper extremities. Hematologic: No bleeding or bruising. Neurologic: The patient has had some intermittent shaking of the extremities that Neurology feels is secondary to asterixis from toxic metabolic encephalopathy. She has a history of hallucinations in the evening for which she takes Zyprexa. She has some depression as well for which she takes escitalopram and has had some recent family losses. PHYSICAL EXAMINATION: VITAL SIGNS: Heart rate 91, respirations 22, temperature 98.7, blood pressure 184/83, O2 sat 100% on nonrebreather. GENERAL: Well-developed female in mild distress secondary to shortness of breath. She is able to give her full name, her current location in [place] in the hospital, can identify me, knows the current president and her current situation. HEENT: Normocephalic, atraumatic. Pupils equal, round, and reactive to light and accommodation. Extraocular muscles intact. Nares are patent without discharge. Tongue protrudes in the midline. NECK: Supple, without lymphadenopathy. CARDIOVASCULAR: Regular rate and rhythm with 2/6 systolic ejection murmur best heard left upper sternal border without radiation. LUNGS: With coarse rhonchi at the bases. No wheezing. Mildly increased work of breathing. ABDOMEN: Positive bowel sounds in all four quadrants. Soft, nontender, nondistended, no masses, guarding, or rebound tenderness. EXTREMITIES: No cyanosis or clubbing. 2+ nonpitting edema bilaterally to all extremities. NEUROLOGIC: Cranial nerves II-XII grossly intact. No focal deficits. LABORATORY DATA: CBC from today with white count 9.8, hemoglobin 10.9, hematocrit 34.5, platelets 131. Sodium 143, potassium 5.6, BUN 44, creatinine 1.8, glucose 102, calcium 7.8, B12 of 686, folate 14.9, free T4 0.88, TSH 0.5517 , syphilis antibody nonreactive, urine culture from 03/05/2018 with Klebsiella pneumoniae that was pansensitive and blood culture x2 from 03/05/2018 negative for 48 hours. IMAGING: As per HPI. ASSESSMENT AND PLAN: 1. Acute hypoxic respiratory failure. The patient has successfully weaned from a nonrebreather to 4 liters per nasal cannula and will remain in the supine positioning. She appears grossly fluid overloaded on exam. We have stopped the IV fluids that she was upon arrival. We will administer 40 mg of IV Lasix x1 and monitor her urine output in response. 2. Chronic diastolic congestive heart failure. Please see problem #1. We will get daily weights and strict I's and O's. Low sodium diet. 3. Klebsiella urinary tract infection. We will continue the patient on Rocephin. 4. Right hilar infiltrate versus mass. If her renal function allows and her status improves, may consider a CT of the chest with IV contrast. However, the patient will be a poor candidate for any invasive intervention to clarify further what this process may be secondary to her age and comorbidities. 5. Toxic metabolic encephalopathy. This was deemed due to her underlying urinary tract infection. At present, the shaking has not been witnessed since her transfer here. 6. Hypertension. The patient will be continued on her current regimen plus quantity p.r.n. 7. Acute kidney injury. This occurred in the setting of diuresis for her chronic diastolic congestive heart failure. She has had some improvement of her BUN and creatinine since that time. We will continue to monitor with repeat lab in the a.m., CBC and a BMP. 8. Asthma. It was felt she had a recent exacerbation and received IV Solu- Medrol. She will be continued on prednisone 20 mg per day per Pulmonology's instruction for now. The patient will be given a DuoNeb q.6 hours and albuterol q.4 h. p.r.n. shortness of breath. 9. Depression. The patient will be continued on her escitalopram and olanzapine. 10. Hyperlipidemia. The patient will be continued on her Lipitor and her aspirin. 11. Prophylaxis. Patient will be continued on Pepcid and SCDs. 12. CODE STATUS: The patient is alert and oriented at this time x4 and was able to voice her wishes for do not resuscitate status. I also discussed this further with her daughter Kayy who is in agreement. [facility]
[2018-03-10] MEDS ORDERED: Furosemide 40 MG/4 ML VIAL ONE (17:49)
[2018-03-10] MEDS ORDERED: Piperacillin/Tazobactam 3.375 GM in Sodium Chloride 0.9% 100 ML IVPB SCH (18:00)
[2018-03-10] MEDS ORDERED: Furosemide 40 MG/4 ML VIAL SLOW IVP SCH (18:00)
[2018-03-10] MEDS ORDERED: Acetaminophen 650 MG Suppository PR PRN (18:08)
[2018-03-10] MEDS ORDERED: Ondansetron ODT 4 MG TAB PO PRN (18:08)
[2018-03-10] MEDS ORDERED: Scopolamine 1.5 mg/72 hour Patch TD PRN (18:08)
[2018-03-10] MEDS ORDERED: Lorazepam 2 MG/ML VIAL SLOW IVP PRN (18:08)
[2018-03-10] MEDS ORDERED: Morphine 4 MG/ML Carpuject SLOW IVP PRN (18:15)
[2018-03-10] MEDS ORDERED: Albuterol Sulfate 2.5 mg/3 ml Neb NEB PRN (18:21)
[2018-03-10] MEDS ORDERED: OLANZapine ODT 5 MG TAB PO SCH (21:00)
[2018-03-11] MEDS ORDERED: Escitalopram Oxalate 20 mg Tablet PO SCH (12:15)
[2018-03-11] MEDS ORDERED: Furosemide 40 MG/4 ML VIAL SLOW IVP SCH (12:15)
[2018-03-11] MEDS ORDERED: Aspirin 81 mg Enteric Coated Tablet PO SCH (12:15)
[2018-03-11 12:37] LABS: Hemoglobin 11.1 g/dL (12.0-16.0); Red Blood Cell (RBC) Count 3.55 mill/uL (4.20-5.40); White Blood Cell (WBC) Count 8.3 thou/uL (4.8-10.8)
[2018-03-11 12:38] LABS: %Eosinophils 0.1 % (0.0-10.0); %Lymphocytes 9.4 % (21.0-51.0); %Monocytes 5.9 % (0.0-10.0); %Neutrophils 83.9 % (42.0-75.0); Manual Diff?? YES; Mean Corpuscular HGB CONC 33.8 g/dL (32.0-36.0); Mean Corpuscular Hemoglobin 31.2 pg (27.0-31.0); Mean Corpuscular Volume 92.4 fL (81.0-99.0); Mean Platelet Volume 5.5 fL (7.4-10.4); Platelet Count 132 thou/uL (130-400); RBC Distribution Width 13.8 % (11.5-14.5)
--- NOTE | 2018-03-11 12:38 | RAD ---
PORTABLE CHEST: DATE: 03/11/18. FINDINGS: An AP portable film at 1128 is compared with a 03/10/18 study. The heart remains enlarged. There are bilateral pleural effusions which may have increased slightly since yesterday. However, the overall degree of vascular congestion has improved some over the inter cathy. IMPRESSION: Congestive heart failure with slight improvement in congestion since yesterday. Pleural fluid is sli ghtly greater, but this is probably to be expected. POS: HOME
[2018-03-11 12:39] LABS: #Basophils 0.1 thou/uL (0.0-0.2); #Monocytes 0.5 thou/uL (0.11-0.59); %Basophils 0.8 % (0.0-1.0); MDiff Complete? YES
[2018-03-11 12:47] LABS: Anion Gap 17 mmol/L (10-20); BUN (Urea Nitrogen) 48 mg/dL (9.8-20.1); Calc. Creatinine Clearance 0 mL/min (70-130); Calcium 8.9 mg/dL (7.8-10.44); Carbon Dioxide 30 mmol/L (23-31); Chloride 103 mmol/L (98-107); Estimated GFR-MDRD 38; Glucose 154 mg/dL (83-110); Potassium 4.4 mmol/L (3.5-5.1); Sodium 146 mmol/L (136-145)
[2018-03-11] MEDS: Piperacillin/Tazobactam 2.25 GM in Sodium Chloride 0.9% 100 ML IVPB SCH ×3 (13:37→23:42)
[2018-03-11] MEDS ORDERED: Famotidine 20 MG TAB ONE (20:45)
[2018-03-11] MEDS: Famotidine 20 MG TAB PO SCH (21:19)
[2018-03-11] MEDS: Atorvastatin Calcium 40 MG TAB PO SCH (21:21)
[2018-03-12] MEDS: Piperacillin/Tazobactam 2.25 GM in Sodium Chloride 0.9% 100 ML IVPB SCH ×3 (06:05→17:16)
[2018-03-12 07:03] LABS: Anion Gap 16 mmol/L (10-20); BUN (Urea Nitrogen) 44 mg/dL (9.8-20.1); Calc. Creatinine Clearance 0 mL/min (70-130); Calcium 8.6 mg/dL (7.8-10.44); Carbon Dioxide 36 mmol/L (23-31); Estimated GFR-MDRD 41; Glucose 104 mg/dL (83-110)
[2018-03-12 07:07] LABS: Chloride 100 mmol/L (98-107); Potassium 4.1 mmol/L (3.5-5.1); Sodium 149 mmol/L (136-145)
[2018-03-12] MEDS: Escitalopram Oxalate 20 mg Tablet PO SCH (08:45)
[2018-03-12] MEDS: Aspirin 81 mg Enteric Coated Tablet PO SCH (08:46)
[2018-03-12] MEDS ORDERED: Furosemide 40 MG/4 ML VIAL SLOW IVP SCH (09:00)
[2018-03-12] MEDS: Famotidine 20 MG TAB PO SCH ×2 (11:53→20:42)
[2018-03-12] MEDS: Atorvastatin Calcium 40 MG TAB PO SCH (20:42)
[2018-03-13] MEDS: Piperacillin/Tazobactam 2.25 GM in Sodium Chloride 0.9% 100 ML IVPB SCH ×5 (00:08→23:58)
[2018-03-13 06:31] LABS: %Eosinophils 2.6 % (0.0-10.0); %Monocytes 8.2 % (0.0-10.0); %Neutrophils 75.5 % (42.0-75.0); Hemoglobin 10.7 g/dL (12.0-16.0); Mean Corpuscular HGB CONC 33.2 g/dL (32.0-36.0); Mean Corpuscular Hemoglobin 30.9 pg (27.0-31.0); Mean Corpuscular Volume 92.8 fL (81.0-99.0); Mean Platelet Volume 5.9 fL (7.4-10.4); Platelet Count 143 thou/uL (130-400); RBC Distribution Width 13.6 % (11.5-14.5); Red Blood Cell (RBC) Count 3.47 mill/uL (4.20-5.40); White Blood Cell (WBC) Count 6.8 thou/uL (4.8-10.8)
[2018-03-13 06:32] LABS: #Eosinphils 0.2 thou/uL (0.0-0.7); #Lymphocytes 0.9 thou/uL (1.20-3.40); #Monocytes 0.6 thou/uL (0.11-0.59); #Neutrophils 5.1 thou/uL (1.40-6.50); %Basophils 0.7 % (0.0-1.0)
[2018-03-13 06:34] LABS: Anion Gap 16 mmol/L (10-20); BUN (Urea Nitrogen) 34 mg/dL (9.8-20.1); Calc. Creatinine Clearance 0 mL/min (70-130); Calcium 8.7 mg/dL (7.8-10.44); Carbon Dioxide 39 mmol/L (23-31); Estimated GFR-MDRD 44; Glucose 100 mg/dL (83-110)
[2018-03-13 06:38] LABS: Chloride 97 mmol/L (98-107); Potassium 3.8 mmol/L (3.5-5.1); Sodium 149 mmol/L (136-145)
--- NOTE | 2018-03-13 07:41 | RAD ---
PORTABLE CHEST: Date: 03/13/18 An AP portable film at 0601 hours is compared with the 03/11/18 study. Congestive findings are improving over the interval. There is less pleural effusion than there was be fore, particularly on the right. The upper lobe vessels are less congested. There is still some pleur al fluid on the left. Cardiac size remains enlarged, but unchanged. The trachea deviates towards the right at the thoracic inlet from her known left lobe thyroid pathology. IMPRESSION: 1. CHF improving. 2. Patient has known left lobe thyroid mass which accounts for the deviation of the trachea. POS: HOME
[2018-03-13] MEDS: Famotidine 20 MG TAB PO SCH ×2 (08:38→20:33)
[2018-03-13] MEDS: Escitalopram Oxalate 20 mg Tablet PO SCH (08:39)
[2018-03-13] MEDS: Aspirin 81 mg Enteric Coated Tablet PO SCH (08:39)
[2018-03-13] MEDS: Furosemide 40 MG TAB PO SCH (08:39)
[2018-03-13] MEDS: Atorvastatin Calcium 40 MG TAB PO SCH (20:30)
[2018-03-14] MEDS: Piperacillin/Tazobactam 2.25 GM in Sodium Chloride 0.9% 100 ML IVPB SCH ×5 (06:11→18:21)
[2018-03-14] MEDS: Furosemide 40 MG TAB PO SCH (09:54)
[2018-03-14] MEDS: Famotidine 20 MG TAB PO SCH ×2 (09:54→20:45)
[2018-03-14] MEDS: Escitalopram Oxalate 20 mg Tablet PO SCH (09:54)
[2018-03-14] MEDS: Aspirin 81 mg Enteric Coated Tablet PO SCH (09:54)
[2018-03-14] MEDS: Atorvastatin Calcium 40 MG TAB PO SCH (20:44)
[2018-03-14] MEDS: Cefdinir 300 MG CAP PO SCH (20:45)
[2018-03-15] MEDS: Furosemide 40 MG TAB PO SCH (09:57)
[2018-03-15] MEDS: Aspirin 81 mg Enteric Coated Tablet PO SCH (09:57)
[2018-03-15] MEDS: Famotidine 20 MG TAB PO SCH ×2 (09:57→22:01)
[2018-03-15] MEDS: Cefdinir 300 MG CAP PO SCH ×2 (09:57→22:01)
[2018-03-15] MEDS: Escitalopram Oxalate 20 mg Tablet PO SCH (09:57)
[2018-03-15] MEDS: Atorvastatin Calcium 40 MG TAB PO SCH (22:01)
[2018-03-16] MEDS ORDERED: Sodium Chloride 0.9% 10 ML ONE (06:21)
[2018-03-16] MEDS: Furosemide 40 MG TAB PO SCH (08:55)
[2018-03-16] MEDS: Aspirin 81 mg Enteric Coated Tablet PO SCH (08:55)
[2018-03-16] MEDS: Escitalopram Oxalate 20 mg Tablet PO SCH (08:56)
[2018-03-16] MEDS: Cefdinir 300 MG CAP PO SCH ×2 (08:56→20:14)
[2018-03-16] MEDS: Famotidine 20 MG TAB PO SCH ×2 (08:57→20:14)
[2018-03-16] MEDS: Atorvastatin Calcium 40 MG TAB PO SCH (20:14)
[2018-03-17] MEDS: Famotidine 20 MG TAB PO SCH ×2 (07:57→21:41)
[2018-03-17] MEDS: Furosemide 40 MG TAB PO SCH (07:58)
[2018-03-17] MEDS: Escitalopram Oxalate 20 mg Tablet PO SCH (07:58)
[2018-03-17] MEDS: Aspirin 81 mg Enteric Coated Tablet PO SCH (07:58)
[2018-03-17] MEDS: Atorvastatin Calcium 40 MG TAB PO SCH (21:41)
[2018-03-18] MEDS: Escitalopram Oxalate 20 mg Tablet PO SCH (08:21)
[2018-03-18] MEDS: Aspirin 81 mg Enteric Coated Tablet PO SCH (08:21)
[2018-03-18] MEDS: Furosemide 40 MG TAB PO SCH (08:21)
[2018-03-18] MEDS: Famotidine 20 MG TAB PO SCH ×2 (08:22→20:32)
[2018-03-18] MEDS: Atorvastatin Calcium 40 MG TAB PO SCH (20:33)
[2018-03-19 05:51] LABS: BUN (Urea Nitrogen) 16 mg/dL (9.8-20.1); Calc. Creatinine Clearance 45 mL/min (70-130); Calcium 8.1 mg/dL (7.8-10.44); Estimated GFR-MDRD 42; Glucose 102 mg/dL (83-110); Sodium 145 mmol/L (136-145)
[2018-03-19 05:53] LABS: Chloride 91 mmol/L (98-107); Potassium 2.8 mmol/L (3.5-5.1)
[2018-03-19 06:08] LABS: Carbon Dioxide Greater than 37 mmol/L (23-31)
[2018-03-19 06:13] LABS: Hemoglobin 9.5 g/dL (12.0-16.0); Mean Corpuscular Volume 92.3 fL (81.0-99.0); Red Blood Cell (RBC) Count 3.07 mill/uL (4.20-5.40); White Blood Cell (WBC) Count 7.2 thou/uL (4.8-10.8)
[2018-03-19 06:14] LABS: #Neutrophils 5.3 thou/uL (1.40-6.50); %Basophils 1.3 % (0.0-1.0); %Eosinophils 2.3 % (0.0-10.0); %Monocytes 9.3 % (0.0-10.0); %Neutrophils 73.2 % (42.0-75.0); Mean Corpuscular HGB CONC 33.5 g/dL (32.0-36.0); Mean Platelet Volume 5.4 fL (7.4-10.4); Platelet Count 170 thou/uL (130-400); RBC Distribution Width 13.2 % (11.5-14.5)
[2018-03-19 06:15] LABS: #Basophils 0.1 thou/uL (0.0-0.2); #Eosinphils 0.2 thou/uL (0.0-0.7); #Monocytes 0.7 thou/uL (0.11-0.59)
[2018-03-19] MEDS: Potassium Chloride 20 MEQ TAB PO SCH (06:38)
[2018-03-19] MEDS: Furosemide 40 MG TAB PO SCH (08:15)
[2018-03-19] MEDS: Aspirin 81 mg Enteric Coated Tablet PO SCH (08:15)
[2018-03-19] MEDS: Escitalopram Oxalate 20 mg Tablet PO SCH (08:15)
[2018-03-19] MEDS: Famotidine 20 MG TAB PO SCH ×2 (08:16→21:35)
[2018-03-19] MEDS: Atorvastatin Calcium 40 MG TAB PO SCH (21:35)
[2018-03-20] MEDS: Famotidine 20 MG TAB PO SCH ×2 (08:54→21:50)
[2018-03-20] MEDS: Escitalopram Oxalate 20 mg Tablet PO SCH (08:55)
[2018-03-20] MEDS: Potassium Chloride 20 MEQ TAB PO SCH (08:55)
[2018-03-20] MEDS: Aspirin 81 mg Enteric Coated Tablet PO SCH (08:56)
[2018-03-20] MEDS: Furosemide 40 MG TAB PO SCH (08:56)
[2018-03-20] MEDS: Atorvastatin Calcium 40 MG TAB PO SCH (21:50)
[2018-03-21] MEDS: Acetaminophen 500 MG TAB PO PRN (02:17)
[2018-03-21 05:34] LABS: Potassium 3.5 mmol/L (3.5-5.1); Sodium 146 mmol/L (136-145)
[2018-03-21 05:35] LABS: BUN (Urea Nitrogen) 17 mg/dL (9.8-20.1); Calcium 8.2 mg/dL (7.8-10.44); Carbon Dioxide Greater than 37 mmol/L (23-31); Chloride 96 mmol/L (98-107); Glucose 115 mg/dL (83-110)
[2018-03-21 05:37] LABS: Calc. Creatinine Clearance 46 mL/min (70-130); Estimated GFR-MDRD 44
[2018-03-21] MEDS: Escitalopram Oxalate 20 mg Tablet PO SCH (08:49)
[2018-03-21] MEDS: Famotidine 20 MG TAB PO SCH ×2 (08:49→20:27)
[2018-03-21] MEDS: Potassium Chloride 20 MEQ TAB PO SCH (08:50)
[2018-03-21] MEDS: Aspirin 81 mg Enteric Coated Tablet PO SCH (08:51)
[2018-03-21] MEDS: Furosemide 40 MG TAB PO SCH (08:51)
[2018-03-21] MEDS: Atorvastatin Calcium 40 MG TAB PO SCH (20:26)
[2018-03-22] MEDS ORDERED: cloNIDine 0.1 MG TAB PO SCH (07:45)
[2018-03-22] MEDS: Furosemide 40 MG TAB PO SCH (07:46)
[2018-03-22] MEDS: Escitalopram Oxalate 20 mg Tablet PO SCH (08:46)
[2018-03-22] MEDS: Aspirin 81 mg Enteric Coated Tablet PO SCH (08:46)
[2018-03-22] MEDS: Losartan Potassium 50 MG TAB PO SCH (08:47)
[2018-03-22] MEDS: Famotidine 20 MG TAB PO SCH ×2 (08:47→21:15)
[2018-03-22] MEDS: Atorvastatin Calcium 40 MG TAB PO SCH (21:14)
[2018-03-22] MEDS: Atenolol 50 MG TAB PO SCH (21:14)
[2018-03-23] MEDS: Famotidine 20 MG TAB PO SCH ×2 (08:41→20:42)
[2018-03-23] MEDS: Furosemide 40 MG TAB PO SCH (08:41)
[2018-03-23] MEDS: Escitalopram Oxalate 20 mg Tablet PO SCH (08:41)
[2018-03-23] MEDS: Aspirin 81 mg Enteric Coated Tablet PO SCH (08:41)
[2018-03-23] MEDS: Losartan Potassium 50 MG TAB PO SCH (08:42)
--- NOTE | 2018-03-23 18:16 | CT ---
CT OF THE CHEST WITHOUT CONTRAST 03/23/[address] of the chest was done for evaluation of abnormal chest x-ray. Ideally, this study would hav e been done with IV contrast, however, her renal function was sufficiently poor that I felt it was no t fisher to use it. Axial slices were acquired, then coronal and sagittal reconstructions were done. Bilateral pleural effusions are present greater on the left than the right. There is significant comp ressive atelectasis of the left lower lobe. The aerated portion of the lobe is rather small. Neverthe less, I do not see any significant pulmonary mass or large lobar consolidation. Regarding the dara, while it is difficult to be 100% certain without contrast, it appears that the bu lk of the density at the right hilum is due to large vessels. Coronary arteriosclerosis is noted in t his patient. There is no sign of pericardial effusion. A 4.3 cm mass is seen in the left lobe of the thyroid gland that descends in a substernal location. T his is a known entity, seen on a prior ultrasound. IMPRESSION: 1. Prominent right hilum is most likely due to prominent pulmonary vessels. 2. Small to medium sized bilateral pleural effusions. The one on the left is a little larger and causes compressive atelectasis of the left lung. It probably is not quite enough to tap, however. 3. Coronary arteriosclerosis. 4. Mass in the left lobe of the thyroid gland. POS: HOME
[2018-03-23] MEDS: Atenolol 50 MG TAB PO SCH (20:42)
[2018-03-23] MEDS: Atorvastatin Calcium 40 MG TAB PO SCH (20:43)
[2018-03-24] MEDS: Acetaminophen 500 MG TAB PO PRN (05:30)
[2018-03-24] MEDS: Famotidine 20 MG TAB PO SCH ×2 (08:50→20:31)
[2018-03-24] MEDS: Furosemide 40 MG TAB PO SCH (08:50)
[2018-03-24] MEDS: Aspirin 81 mg Enteric Coated Tablet PO SCH (08:50)
[2018-03-24] MEDS: Escitalopram Oxalate 20 mg Tablet PO SCH (08:50)
[2018-03-24] MEDS: Losartan Potassium 50 MG TAB PO SCH (08:51)
[2018-03-24] MEDS: Atenolol 50 MG TAB PO SCH (20:32)
[2018-03-24] MEDS: Atorvastatin Calcium 40 MG TAB PO SCH (20:33)
[2018-03-25] MEDS: Famotidine 20 MG TAB PO SCH ×2 (09:14→20:58)
[2018-03-25] MEDS: Losartan Potassium 50 MG TAB PO SCH (09:15)
[2018-03-25] MEDS: Furosemide 40 MG TAB PO SCH (09:15)
[2018-03-25] MEDS: Aspirin 81 mg Enteric Coated Tablet PO SCH (09:15)
[2018-03-25] MEDS: Escitalopram Oxalate 20 mg Tablet PO SCH (09:15)
[2018-03-25] MEDS: Atorvastatin Calcium 40 MG TAB PO SCH (20:58)
[2018-03-25] MEDS: Atenolol 50 MG TAB PO SCH (20:59)
[2018-03-26 05:09] VITALS: BMI 36.8
[2018-03-26] MEDS: Escitalopram Oxalate 20 mg Tablet PO SCH (09:10)
[2018-03-26] MEDS: Furosemide 40 MG TAB PO SCH (09:10)
[2018-03-26] MEDS: Aspirin 81 mg Enteric Coated Tablet PO SCH (09:10)
[2018-03-26] MEDS: Famotidine 20 MG TAB PO SCH ×2 (09:12→22:24)
[2018-03-26] MEDS: Losartan Potassium 50 MG TAB PO SCH (09:12)
[2018-03-26] MEDS: Acetaminophen 500 MG TAB PO PRN (11:53)
[2018-03-26] MEDS: Atorvastatin Calcium 40 MG TAB PO SCH (22:24)
[2018-03-26] MEDS: Atenolol 50 MG TAB PO SCH (22:25)
[2018-03-27] MEDS: Furosemide 40 MG TAB PO SCH (08:30)
[2018-03-27] MEDS: Aspirin 81 mg Enteric Coated Tablet PO SCH (08:30)
[2018-03-27] MEDS: Escitalopram Oxalate 20 mg Tablet PO SCH (08:30)
[2018-03-27] MEDS: Famotidine 20 MG TAB PO SCH ×2 (08:31→20:34)
[2018-03-27] MEDS: Losartan Potassium 50 MG TAB PO SCH (08:31)
[2018-03-27] MEDS: Atenolol 50 MG TAB PO SCH (20:34)
[2018-03-27] MEDS: Atorvastatin Calcium 40 MG TAB PO SCH (20:39)
[2018-03-28] MEDS: Acetaminophen 500 MG TAB PO PRN (08:48)
[2018-03-28] MEDS: Aspirin 81 mg Enteric Coated Tablet PO SCH (08:48)
[2018-03-28] MEDS: Escitalopram Oxalate 20 mg Tablet PO SCH (08:48)
[2018-03-28] MEDS: Furosemide 40 MG TAB PO SCH (08:49)
[2018-03-28] MEDS: Famotidine 20 MG TAB PO SCH ×2 (08:49→20:02)
[2018-03-28] MEDS: Losartan Potassium 50 MG TAB PO SCH (08:49)
[2018-03-28] MEDS: Atenolol 50 MG TAB PO SCH (20:03)
[2018-03-28] MEDS: Atorvastatin Calcium 40 MG TAB PO SCH (20:03)
[2018-03-29] MEDS: Famotidine 20 MG TAB PO SCH ×2 (09:14→20:56)
[2018-03-29] MEDS: Escitalopram Oxalate 20 mg Tablet PO SCH (09:15)
[2018-03-29] MEDS: Furosemide 40 MG TAB PO SCH (09:15)
[2018-03-29] MEDS: Losartan Potassium 50 MG TAB PO SCH (09:15)
[2018-03-29] MEDS: Aspirin 81 mg Enteric Coated Tablet PO SCH (09:15)
[2018-03-29] MEDS ORDERED: Atenolol 50 MG TAB ONE (20:22)
[2018-03-29] MEDS: Acetaminophen 500 MG TAB PO PRN (20:56)
[2018-03-29] MEDS: Atenolol 50 MG TAB PO SCH (20:56)
[2018-03-29] MEDS: Atorvastatin Calcium 40 MG TAB PO SCH (20:57)
[2018-03-30 07:37] VITALS: BP 140/67; TEMP 97.8
[2018-03-30] MEDS: Losartan Potassium 50 MG TAB PO SCH (09:06)
[2018-03-30] MEDS: Famotidine 20 MG TAB PO SCH (09:06)
[2018-03-30] MEDS: Furosemide 40 MG TAB PO SCH (09:07)
[2018-03-30] MEDS: Escitalopram Oxalate 20 mg Tablet PO SCH (09:07)
[2018-03-30] MEDS: Aspirin 81 mg Enteric Coated Tablet PO SCH (09:07)
== END 2018-03-30 14:05 | disposition home health service (06) | DRG 291 ==
LOC: BURMED 17:17
PROVIDERS: ADMIT Family Medicine; ATTEND Family Medicine
DX: I13.0 Hypertensive heart and chronic kidney disease with heart failure and stage 1 through stage 4 chronic kidney disease, or unspecified chronic kidney disease (principal); J96.01 Acute respiratory failure with hypoxia; J69.0 Pneumonitis due to inhalation of food and vomit; G92 Toxic encephalopathy; J96.02 Acute respiratory failure with hypercapnia; N39.0 Urinary tract infection, site not specified; N17.9 Acute kidney failure, unspecified; I50.32 Chronic diastolic (congestive) heart failure; E78.5 Hyperlipidemia, unspecified; J45.909 Unspecified asthma, uncomplicated; F32.9 Major depressive disorder, single episode, unspecified; B96.1 Klebsiella pneumoniae [K. pneumoniae] as the cause of diseases classified elsewhere; N18.3 Chronic kidney disease, stage 3 (moderate); R13.10 Dysphagia, unspecified; R53.1 Weakness; Z66 Do not resuscitate; N39.46 Mixed incontinence; G62.9 Polyneuropathy, unspecified; H04.129 Dry eye syndrome of unspecified lacrimal gland; Z96.652 Presence of left artificial knee joint; Z88.6 Allergy status to analgesic agent; Z88.5 Allergy status to narcotic agent; Z88.3 Allergy status to other anti-infective agents; Z79.52 Long term (current) use of systemic steroids; Z79.899 Other long term (current) drug therapy
CPT/HCPCS: 36415; 71045; 71250; 80048; 83880; 85025; 94640; A4216; G8978-GP-CN; G8979-GP-CM; G8987-GO-CM; G8988-GO-CJ; G8996-GN-CK; G8997-GN-CJ; J1940; J2543; J7050; J7506; J7620

== ENCOUNTER 2018-04-29 11:09 | Emergency (ER) | payer MEDICARE ==
[2018-04-29 11:30] LABS: Bilirubin Negative (Negative); Blood, Urine Negative (Negative); Clarity Clear (Clear); Glucose, Urine (Dipstick) Negative (Negative); Leukocyte Negative (Negative); Nitrite Negative (Negative); Protein, Urine (Dipstick) Negative (Neg-Trace); Urobilinogen 0.2 mg/dL (0.2-1.0); pH, Urine 5.5 (5.0-9.0)
[2018-04-30 22:39] LABS: Chlamydia by PCR Not Detected (NotDetected); GC by PCR Not Detected (NotDetected)
== END 2018-04-29 12:05 | disposition home or self-care (01) ==
LOC: BURERS 11:09
DX: N95.2 Postmenopausal atrophic vaginitis (principal); I11.0 Hypertensive heart disease with heart failure; I50.9 Heart failure, unspecified; F32.9 Major depressive disorder, single episode, unspecified; Z79.82 Long term (current) use of aspirin; Z79.899 Other long term (current) drug therapy
CPT/HCPCS: 81003; 87077; 87086; 87186; 87480; 87491; 87510; 87591; 87660; 99283

== ENCOUNTER 2018-08-08 12:58 | Outpatient (CLI) | payer MEDICARE ==
--- NOTE | 2018-08-08 23:13 | ULT ---
THYROID ULTRASOUND 08/08/18 Comparison is made with the prior CT dated 01/03/18. The thyroid remains enlarged, though it is slightly smaller than it was in December. The right lobe malachi ures 4.7 x 1.7 x 2.3 cm. There is a 0.6 cm solid hypoechoic nodule in its upper pole that is similar to before. No additional nodules on the right were detected. The left lobe measures 5.8 x 2.5 x 2.4 cm. Two nodules are seen within it. The large one is in the in ferior pole and measures 1.8 x 2.4 x 2.3 cm. This is actually somewhat smaller than the prior exam, t kate it is difficult to see exceptionally well. CT might show differences in size more accurately in this case. There is also a 0.5 x 0.7 cm hypoechoic nodule in the middle third of the left lobe. This was not seen previously. No surrounding adenopathy was imaged. IMPRESSION: 1. Thyromegaly, but size decrease since December. 2. 0.6 cm nodule in the upper right lobe, essentially unchanged. Its margins are not entirely di screte. 3. Large mass in the inferior part of the left lobe (2.4 cm wide) which is definitely smaller th an before, but I am not confident all of the mass was measured. It is somewhat difficult to see. Ther e is also a 0.7 cm hypoechoic nodule in the mid-portion of this lobe which is a new finding. COMMENT: Certainly a multinodular goiter is in the differential diagnosis. Because these nodules are not excep tionally discrete, the odds of them being benign versus not are a bit more equivocal. Further follow up and/or consideration of biopsy would be appropriate. Code T POS: HOME
== END 2018-08-08 12:59 | disposition home or self-care (01) ==
LOC: BURULT 12:58
PROVIDERS: ATTEND Specialist
DX: E07.9 Disorder of thyroid, unspecified (principal); E01.0 Iodine-deficiency related diffuse (endemic) goiter
CPT/HCPCS: 76536

== ENCOUNTER 2018-11-15 08:11 | Emergency (ER) | payer MEDICARE ==
[2018-11-15 08:46] LABS: #Basophils 0.1 thou/uL (0.0-0.2); #Eosinphils 0.3 thou/uL (0.0-0.7); #Lymphocytes 1.1 thou/uL (1.20-3.40); #Monocytes 0.4 thou/uL (0.11-0.59); %Basophils 0.9 % (0.0-1.0); %Eosinophils 4.7 % (0.0-10.0); %Lymphocytes 19.1 % (21.0-51.0); %Monocytes 6.3 % (0.0-10.0); %Neutrophils 68.9 % (42.0-75.0); Hemoglobin 10.1 g/dL (12.0-16.0); Mean Corpuscular HGB CONC 32.4 g/dL (32.0-36.0); Mean Corpuscular Hemoglobin 31.6 pg (27.0-31.0); Mean Corpuscular Volume 97.6 fL (78.0-98.0); Mean Platelet Volume 5.9 fL (7.4-10.4); Platelet Count 186 thou/uL (130-400); RBC Distribution Width 13.1 % (11.5-14.5); Red Blood Cell (RBC) Count 3.18 mill/uL (4.20-5.40); White Blood Cell (WBC) Count 5.8 thou/uL (4.8-10.8)
[2018-11-15 08:52] LABS: Clarity Clear (Clear); Glucose, Urine (Dipstick) Negative (Negative); Leukocyte Negative (Negative); Nitrite Negative (Negative); Protein, Urine (Dipstick) Negative (Neg-Trace); Specific Gravity, Urine 1.015 (1.005-1.030); Urobilinogen 0.2 mg/dL (0.2-1.0)
[2018-11-15 08:53] LABS: Bilirubin Negative (Negative); Blood, Urine Negative (Negative)
[2018-11-15 09:02] LABS: ALT (SGPT) 10 U/L (8-55); AST (SGOT) 17 U/L (5-34); Albumin 3.3 g/dL (3.4-4.8); Alkaline Phosphatase 51 U/L (40-150); Anion Gap 15 mmol/L (10-20); BUN (Urea Nitrogen) 37 mg/dL (9.8-20.1); Bilirubin, Total 0.5 mg/dL (0.2-1.2); Calc. Creatinine Clearance 0 mL/min (70-130); Calcium 8.9 mg/dL (7.8-10.44); Carbon Dioxide 33 mmol/L (23-31); Chloride 102 mmol/L (98-107); Estimated GFR-MDRD 22; Globulin 3.1 g/dL (2.4-3.5); Glucose 122 mg/dL (83-110); Potassium 5.1 mmol/L (3.5-5.1); Protein, Total 6.4 g/dL (6.0-8.3); Sodium 145 mmol/L (136-145)
== END 2018-11-15 10:05 | disposition home or self-care (01) ==
LOC: BURERS 08:11
DX: E86.0 Dehydration (principal); I11.0 Hypertensive heart disease with heart failure; I50.9 Heart failure, unspecified; F32.9 Major depressive disorder, single episode, unspecified; Z79.899 Other long term (current) drug therapy; Z79.82 Long term (current) use of aspirin
CPT/HCPCS: 80053; 81003; 85025; 87086; 96360

== ENCOUNTER 2018-11-27 16:41 | Observation (INO) | payer MEDICARE ==
[2018-11-27 17:02] LABS: #Basophils 0.1 thou/uL (0.0-0.2); #Eosinphils 0.1 thou/uL (0.0-0.7); #Lymphocytes 1.2 thou/uL (1.20-3.40); #Monocytes 0.7 thou/uL (0.11-0.59); #Neutrophils 6.8 thou/uL (1.40-6.50); %Basophils 0.6 % (0.0-1.0); %Eosinophils 0.6 % (0.0-10.0); %Lymphocytes 13.9 % (21.0-51.0); %Monocytes 7.8 % (0.0-10.0); %Neutrophils 77.1 % (42.0-75.0); Hemoglobin 11.5 g/dL (12.0-16.0); Mean Corpuscular HGB CONC 31.6 g/dL (32.0-36.0); Mean Corpuscular Hemoglobin 30.8 pg (27.0-31.0); Mean Corpuscular Volume 97.5 fL (78.0-98.0); Mean Platelet Volume 5.5 fL (7.4-10.4); Platelet Count 205 thou/uL (130-400); RBC Distribution Width 13.9 % (11.5-14.5); Red Blood Cell (RBC) Count 3.72 mill/uL (4.20-5.40); White Blood Cell (WBC) Count 8.8 thou/uL (4.8-10.8)
[2018-11-27 17:20] LABS: ALT (SGPT) 10 U/L (8-55); AST (SGOT) 28 U/L (5-34); Albumin 3.8 g/dL (3.4-4.8); Alkaline Phosphatase 69 U/L (40-150); Anion Gap 17 mmol/L (10-20); BUN (Urea Nitrogen) 23 mg/dL (9.8-20.1); Bilirubin, Total 1.4 mg/dL (0.2-1.2); Calc. Creatinine Clearance 0 mL/min (70-130); Calcium 9.7 mg/dL (7.8-10.44); Estimated GFR-MDRD 32; Globulin 3.9 g/dL (2.4-3.5); Glucose 125 mg/dL (83-110); Protein, Total 7.7 g/dL (6.0-8.3)
[2018-11-27 17:24] LABS: Chloride 95 mmol/L (98-107); Potassium 4.2 mmol/L (3.5-5.1); Sodium 145 mmol/L (136-145)
[2018-11-27 17:40] LABS: CKMB 2.2 ng/mL (0-6.6)
[2018-11-27 17:51] LABS: Carbon Dioxide 37 mmol/L (23-31)
[2018-11-27] MEDS ORDERED: Furosemide 40 MG/4 ML VIAL ONE (18:05)
[2018-11-27] MEDS ORDERED: Acetaminophen 325 MG TAB PO PRN ×2 (20:39→21:15)
[2018-11-27] MEDS ORDERED: Ondansetron ODT 4 MG TAB SL PRN (20:39)
[2018-11-27] MEDS ORDERED: Ondansetron PF 4 MG/2 ML Vial IVP PRN (20:39)
[2018-11-27] MEDS ORDERED: Albuterol Sulfate 2.5 mg/3 ml Neb NEB PRN (21:15)
--- NOTE | 2018-11-27 21:35 | RAD ---
PORTABLE CHEST: 11/27/18 Comparison is made with the 03/13/18 study. The right hilum has gotten more prominent in size since the prior study. There is suggestion of possi ble pulmonary masses in the right lung that are not present on the prior study. A small effusion on t he left is probable. The heart is mildly enlarged. Any congestion of upper lobe vessels is only sligh t. IMPRESSION: Increased prominence of the right hilum and possible pulmonary masses on the right. CT would be helpf ul at better assessing this. If the patient were able to take IV contrast, it would be most helpful, but a scan without would be useful as well. Further followup will be needed. Even if one just followe d with plain films, followup is indicated. POS: HOME
[2018-11-28 04:33] LABS: #Eosinphils 0.2 thou/uL (0.0-0.7); #Lymphocytes 1.6 thou/uL (1.20-3.40); #Monocytes 0.5 thou/uL (0.11-0.59); #Neutrophils 3.8 thou/uL (1.40-6.50); %Basophils 0.8 % (0.0-1.0); %Eosinophils 2.8 % (0.0-10.0); %Lymphocytes 26.4 % (21.0-51.0); %Monocytes 7.8 % (0.0-10.0); %Neutrophils 62.3 % (42.0-75.0); Hemoglobin 10.5 g/dL (12.0-16.0); Mean Corpuscular HGB CONC 31.9 g/dL (32.0-36.0); Mean Corpuscular Hemoglobin 31.2 pg (27.0-31.0); Mean Corpuscular Volume 97.8 fL (78.0-98.0); Mean Platelet Volume 6.7 fL (7.4-10.4); Platelet Count 159 thou/uL (130-400); RBC Distribution Width 13.7 % (11.5-14.5); Red Blood Cell (RBC) Count 3.35 mill/uL (4.20-5.40); White Blood Cell (WBC) Count 6.1 thou/uL (4.8-10.8)
[2018-11-28 04:34] LABS: Anion Gap 17 mmol/L (10-20); BUN (Urea Nitrogen) 25 mg/dL (9.8-20.1); Calc. Creatinine Clearance 33 mL/min (70-130); Calcium 8.9 mg/dL (7.8-10.44); Carbon Dioxide 36 mmol/L (23-31); Estimated GFR-MDRD 33; Glucose 93 mg/dL (83-110)
[2018-11-28 04:35] LABS: Chloride 97 mmol/L (98-107); Potassium 3.9 mmol/L (3.5-5.1); Sodium 146 mmol/L (136-145)
[2018-11-28 04:54] LABS: Troponin I 0.064 ng/mL (< 0.028)
[2018-11-28] MEDS: Escitalopram Oxalate 20 mg Tablet PO SCH (08:33)
[2018-11-28] MEDS: Cyanocobalamin (Vitamin B-12) 1,000 MCG TAB PO SCH (08:38)
[2018-11-28] MEDS: Calcium Carbonate 500 MG ChewTAB PO SCH ×2 (08:38→21:44)
[2018-11-28] MEDS: Famotidine 20 MG TAB PO SCH (08:38)
[2018-11-28] MEDS: Multivit, Therapeutic 1 TAB PO SCH (08:38)
[2018-11-28] MEDS: Aspirin 81 mg Enteric Coated Tablet PO SCH (08:38)
[2018-11-28] MEDS: Fish Oil 1,000 MG CAP PO SCH ×2 (08:38→21:39)
[2018-11-28] MEDS: Losartan Potassium 50 MG TAB PO SCH (08:38)
[2018-11-28] MEDS: Furosemide 20 MG/2 ML VIAL SLOW IVP SCH (08:40)
--- NOTE | 2018-11-28 13:13 | HP ---
HISTORY OF PRESENT ILLNESS: This is an 88-year-old female, who was seen yesterday afternoon in the clinical setting and noted to have a concern for volume overload; she does have a noted history of diastolic congestive heart failure. Accompanying this, she has had progressive weakness. The patient is on chronic supplemental oxygen at 2L; however, when she presented to the clinical setting, she was without her oxygen and notably hypoxic at 79%. She was supplemented with her usual oxygen dosing and did appropriately respond with an O2 saturation up to 96%. Secondary to her physical status and concern for volume overload, she was transitioned to the [facility] Emergency Department for further evaluation to assess for potential need for admission and diuresis. In the emergency department, the patient was found to have volume overload with notably elevated BNP of 2554. In addition to this, the patient did have a noted elevated troponin level of 0.083, which is felt to be most likely from demand ischemia. The patient's EKG was similar to prior old EKG showing normal conduction with ST segments being normal and flattened T-waves in the lateral leads. Of note, the patient does not disclose any symptoms of chest pain. Chest x-ray was concerning for pleural effusion less than 10% on the left and pleural effusion less than 10% on the right per ED physician. She was provided Lasix 40 mg IV for her symptoms. The patient is normally on 20 mg p.o. Lasix at home and reports to take this faithfully. Secondary to the patient's chronic deconditioning and fluid overload, it was decided to admit her to observation for mild IV diuresis and further observation. As of this morning, the patient reports to have slept well. She is on her baseline supplemental oxygen. She reports to live at home with her granddaughter, who does work during the day. She does report to have had weakness with some recent falls; she denies having overt pain at this time. She does not have home health set up at this time. I discussed the radiological reading of her chest x-ray with concern of a right hilar pulmonary mass with advised further evaluation with a CT scan; she is amenable to pursue this CT study. She states she is aware of this potential hilar mass related to a prior admission in March of last year. In review of notes at that time, she had been evaluated by Pulmonology; however, it was deemed mass versus infiltrate and felt that she was not a good candidate for invasive studies to try to determine the etiology of the mass, and therefore, further pulmonary workup was deferred. Repeat labs of this morning have shown decrease in her troponin level and pretty significant decrease in her BNP from 2554 to 1187. I have discussed with the patient to pursue evaluation via physical therapy and occupational therapy to further assess her status, obtain a CT of her chest, and decrease her IV Lasix to 20 mg today, all of which she is agreeable to. PAST MEDICAL HISTORY: 1. Hypertension. 2. GERD/stress incontinence. 3. Lactose intolerance. 4. Irritable bowel syndrome. 5. Hyperlipidemia. 6. Depression. 7. History of colon polyps. 8. Diverticulosis. 9. Venous insufficiency. 10. Diastolic dysfunction with left ventricular ejection fraction in 04/2015 at time of heart catheterization of 56% and most recent echocardiogram performed in 2016 with left ventricular ejection fraction of 55% to 60%, diastolic dysfunction, moderately dilated left atrium, mitral annular calcification, mild aortic stenosis, moderate aortic regurgitation, mild tricuspid regurgitation, and mild pulmonic regurgitation. 11. Thyroid mass, status post biopsy with ENT on 02/09/2018 showing hyperplastic nodule with no further intervention recommended. 12. Vitamin B12 deficiency. 13. Peripheral neuropathy. 14. Dry eye syndrome. 15. Osteoarthritis of the knee, status post knee replacement. 16. Normocytic anemia. 17. Asthma. 18. History of UTI. 19. 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 PAST SURGICAL HISTORY: 1. Bilateral cataract repair in 2011. 2. Cholecystectomy. 3. Colonoscopy in 12/2010 with repeat recommended in 10 years. 4. Radiofrequency ablation of left lower extremity in 2010. 5. Hiatal hernia repair. 6. Left total knee arthroplasty in 08/2015. ALLERGIES: NSAIDS, NITROFURANTOIN, TRAMADOL. SOCIAL HISTORY: Nonsmoker. No EtOH or illicit drug use. She lives at home with her granddaughter. FAMILY HISTORY: Noncontributory. MEDICATIONS: 1. Tylenol 650 mg p.o. q.4 hours p.r.n. 2. Ventolin 2.5 mg nebs q.4 hours p.r.n. 3. Aspirin 81 mg p.o. daily. 4. Atenolol 100 mg p.o. at bedtime. 5. Atorvastatin 20 mg p.o. at bedtime. 6. Calcium carbonate 500 mg p.o. b.i.d. 7. Cyanocobalamin 1000 mcg p.o. daily. 8. Escitalopram 5 mg p.o. daily. 9. Famotidine 20 mg p.o. daily. 10. Fish oil 2000 mg p.o. b.i.d. 11. Lasix 20 mg p.o. daily. 12. Losartan 100 mg p.o. daily. 13. Multivitamin p.o. daily. REVIEW OF SYSTEMS: GENERAL: Complains of fatigue. Denies fever, chills, or diaphoresis. EARS, NOSE, AND THROAT: Denies sore throat, nasal drainage, or congestion. CARDIOVASCULAR: Denies chest pain. RESPIRATORY: Denies cough. GASTROINTESTINAL: Denies abdominal pain, nausea, vomiting, diarrhea, or constipation. GENITOURINARY: Denies dysuria. MUSCULOSKELETAL: Denies joint swelling. DERM: Denies rash. NEUROLOGIC: Denies headache. LABORATORY DATA: White blood cell 6.1, H and H of 10.5 and 32.8, platelets 159. Sodium 146, potassium 3.9, anion gap is 17, BUN is 25, creatinine is 1.51 with a GFR of 33, glucose 93. Troponin has decreased from 0.083 to 0.064. BNP decreased from 2554 to 1187. TSH is normal at 1.15. IMAGING DATA: Chest x-ray on 11/27/2018 shows increased prominence of the right hilum and possible pulmonary masses on the right. CT would be helpful at better assessing this. If the patient were able to take IV contrast, that would be most helpful, but a scan without would be useful as well. Further followup will be needed even if one just followed with plain films followup if indicated. PHYSICAL EXAMINATION: VITAL SIGNS: Temperature is 98.3, pulse is 60, respiratory rate is 18, oxygen 95% on 2 L, blood pressure 161/70. GENERAL: The patient is alert and oriented. She is in no acute distress. HEENT: Face; no asymmetry. Eyes; extraocular muscles are intact bilaterally. Head, eyes, ears, nose, and throat are within normal limits. Oral cavity, moist mucous membranes. NECK: Supple with no lymphadenopathy. CARDIOVASCULAR: Regular rate and rhythm. She has a 2/6 systolic murmur. RESPIRATORY: There are faint crackles to the lung bases. No respiratory distress. Nasal cannula is in place. GASTROINTESTINAL: Soft, nontender to palpation. No masses. EXTREMITIES: No clubbing or cyanosis. She has chronic nonpitting edema. SKIN: No rash. NEUROLOGIC: Nonfocal with cranial nerves 2 through 12 grossly intact. MUSCULOSKELETAL: She does have generalized weakness. ASSESSMENT AND PLAN: 1. Acute diastolic congestive heart failure exacerbation. The patient received 40 mg IV Lasix in the ER yesterday evening with appropriate decline in her BNP. She does have a history of tenuous renal function in regard to diuresis. I will decrease her IV Lasix dose to 20 mg today and repeat BMP in the morning. We will follow the patient's weight accordingly. 2. Pulmonary mass on the right, I will order a CT scan per advisement of chest x-ray reading. Of note, prior imaging in March of last year showed signs of a hilar mass on the right, however, it was not advised at that time to pursue an invasive workup. Pending the results of her CT scan, she may discuss with her primary care provider, Dr. Langston on whether they would have further workup with Pulmonology as an outpatient. 3. Elevated troponin. This appears most likely from demand ischemia. The patient's EKG was reassuring and similar to her baseline EKG and troponin is trending down appropriately. I am going to repeat order for troponin in the morning as well. 4. Physical deconditioning. The patient is typically ambulatory with assistance of her cane; I have ordered an evaluation via Physical Therapy and Occupational Therapy today. Would like [facility] Weigher consult to see if she may be a good candidate for home health for further physical therapy and occupational therapy in her home setting. 5. Hypertension. Blood pressure is stable. We will resume her usual blood pressure medications. 6. Stage 3 chronic kidney disease. This appears at baseline. We will follow up metabolic panel in the morning. 7. Oxygen dependence. The patient is on her usual 2 L. 8. Hyperlipidemia. We will resume the patient's statin. 9. Prophylaxis. The patient will resume on famotidine with SCDs for GI and DVT prophylaxis. 10. Disposition: The patient is in observation admission. Pending her CT results and repeat labs and evaluation via physical therapy and occupational therapy, she very likely may be a good candidate to discharge back to her home setting tomorrow morning. I will leave this to the discretion of her primary care provider, Dr. Langston. 11. Code status is DNR. Job ID: [id number] MTDD
--- NOTE | 2018-11-28 16:31 | CT ---
CT OF THE THORAX WITHOUT CONTRAST: 11/28/[address] of the chest was performed for evaluation of an abnormal chest x-ray. One does not see this patient's chest very well on plain radiography. Comparison is made with the prior study of 03/23/18. The perception of possible masses on the plain radiograph appears to have been caused by shadows cast ed by ends of ribs. There are no pulmonary masses present today. No lobar infiltrate was seen. There are some small bilateral effusions, though they are slightly less than they were last March. It is very difficult to sort out the dara in this patient due to not being able to use IV contrast. S orting out what is vessels versus mass or nodes is difficult. There is a rounded area that is about 2 .5 cm in size in the right hilum that on the prior scan looked more like an enlarged vessel and today it looks more like an enlarged node. Nevertheless, it really has not changed substantially in size o henrietta the interval. Coronary arteriosclerosis is present as before. Incidental finding is a large left thyroid mass which is 5 to 6 cm in size. It has been seen on prior scans and has not changes substant ially in size. IMPRESSION: 1. No pulmonary masses. Shadows were artifactual in nature. 2. Enlarged vessel versus 2+ cm node in the right hilum. Changes since the prior scan are only s light. 3. Small pleural effusions, slightly less than before. 4. Coronary arteriosclerosis. 5. Large left thyroid mass, stable in size. POS: HOME
[2018-11-28] MEDS ORDERED: Atenolol 50 MG TAB PO SCH (21:00)
[2018-11-28] MEDS ORDERED: Atorvastatin Calcium 10 MG TAB PO SCH (21:00)
[2018-11-29 05:02] LABS: ALT (SGPT) 9 U/L (8-55); AST (SGOT) 23 U/L (5-34); Albumin 3.1 g/dL (3.4-4.8); Alkaline Phosphatase 53 U/L (40-150); Anion Gap 14 mmol/L (10-20); BUN (Urea Nitrogen) 28 mg/dL (9.8-20.1); Bilirubin, Total 0.6 mg/dL (0.2-1.2); Calc. Creatinine Clearance 0 mL/min (70-130); Calcium 8.3 mg/dL (7.8-10.44); Carbon Dioxide 37 mmol/L (23-31); Chloride 97 mmol/L (98-107); Estimated GFR-MDRD 33; Globulin 2.9 g/dL (2.4-3.5); Glucose 87 mg/dL (83-110); Sodium 144 mmol/L (136-145)
[2018-11-29 05:03] LABS: Troponin I 0.047 ng/mL (< 0.028)
[2018-11-29 05:07] LABS: #Basophils 0.1 thou/uL (0.0-0.2); #Eosinphils 0.2 thou/uL (0.0-0.7); #Lymphocytes 1.1 thou/uL (1.20-3.40); #Monocytes 0.5 thou/uL (0.11-0.59); #Neutrophils 4.1 thou/uL (1.40-6.50); %Basophils 1.3 % (0.0-1.0); %Eosinophils 3.8 % (0.0-10.0); %Lymphocytes 17.8 % (21.0-51.0); Hemoglobin 9.9 g/dL (12.0-16.0); Mean Corpuscular HGB CONC 31.9 g/dL (32.0-36.0); Mean Corpuscular Hemoglobin 31.6 pg (27.0-31.0); Mean Corpuscular Volume 98.8 fL (78.0-98.0); Mean Platelet Volume 6.2 fL (7.4-10.4); Platelet Count 143 thou/uL (130-400); RBC Distribution Width 13.8 % (11.5-14.5); Red Blood Cell (RBC) Count 3.14 mill/uL (4.20-5.40)
[2018-11-29 05:20] VITALS: BMI 33.3
[2018-11-29] MEDS: Famotidine 20 MG TAB PO SCH (08:45)
[2018-11-29] MEDS: Furosemide 20 MG/2 ML VIAL SLOW IVP SCH (08:47)
[2018-11-29] MEDS: Aspirin 81 mg Enteric Coated Tablet PO SCH (08:47)
[2018-11-29] MEDS: Fish Oil 1,000 MG CAP PO SCH (08:47)
[2018-11-29] MEDS: Calcium Carbonate 500 MG ChewTAB PO SCH (08:47)
[2018-11-29] MEDS: Losartan Potassium 50 MG TAB PO SCH (08:47)
[2018-11-29] MEDS: Escitalopram Oxalate 20 mg Tablet PO SCH (08:48)
[2018-11-29] MEDS: Multivit, Therapeutic 1 TAB PO SCH (08:49)
[2018-11-29] MEDS: Cyanocobalamin (Vitamin B-12) 1,000 MCG TAB PO SCH (08:51)
[2018-11-29 09:23] VITALS: TEMP 98.5
[2018-11-29 10:10] VITALS: BP 130/60
--- NOTE | 2018-11-29 11:29 | DIS ---
DATE OF ADMISSION: 11/27/2018 DATE OF DISCHARGE: 11/29/2018 ADMISSION DIAGNOSES: 1. Acute diastolic congestive heart failure. 2. Elevated troponin. 3. Physical deconditioning. SECONDARY DIAGNOSES: 1. Hypertension. 2. Chronic kidney disease stage 3. 3. Oxygen dependent. 4. Hyperlipidemia. 5. Question of right hilar pulmonary mass. PROCEDURES: On 11/27/2018, chest x-ray shows increased prominence of the right hilum and possible pulmonary masses on the right. CT would be helpful at better assessing this. If the patient was able to take IV contrast, it would be most helpful, but a scan without would be useful as well. Further followup will be needed even if one just followed with plain film, followup is indicated. On 11/28/2018, chest CT showed no pulmonary masses. Shadows were artifactual in nature. Enlarged vessel versus 2+ cm node in the right hilum. Changes since the prior scan are only slight. Small pleural effusion, slightly less than before. Coronary arteriosclerosis. Left thyroid mass, stable in size. HOSPITAL COURSE: An 88-year-old female, presented to the [facility] Emergency Department after being evaluated in the outpatient clinical setting with concern for volume overload and progressive weakness. The patient was hypoxic in the clinical setting; however, she did not have her supplemental oxygen on as she typically does; she requires 2 L continuously. Her oxygen did return to baseline with her usual re-implementation of supplemental oxygen at 2 L. In the emergency department, she was evaluated and consistent with diastolic CHF exacerbation as her initial BNP was 2554. Imaging did reveal mild pleural effusions. Her other labs were largely stable. The patient received 40 mg IV Lasix in the emergency department and was admitted to the floor. The patient has a history of renal insufficiency, thus it was decided to lightly diurese her. She typically is on 20 mg p.o. daily Lasix. Her Lasix was resumed here on 20 mg IV. She did effectively diurese back to an euvolemic status and her BNP appropriately decreased from an initial 2554 to 1187 and a final reading of 416. Her weight is decreased by 8 pounds in a 24-hour period. Due to the patient's physical deconditioning, an evaluation was sought via physical therapy and occupational therapy. They did evaluate her and she was able to effectively ambulate quite well up to 500 feet, thus they did not feel that she required any further services in regard to therapy. The patient's renal status remained stable throughout her stay. Of note, she did have an elevation of her troponin; this was felt to be secondary to demand ischemia. Her troponin was trended and has steadily decreased during her stay from 0.083 to 0.064, to 0.047. She has not complained of any chest pain during her stay and her EKG was at her baseline. The patient has had some mild wheezing attributed to allergy based symptoms. She does have nebulized treatments at home, and we will plan to discharge her with a Medrol Dosepak. As far as her volume status, again she appears euvolemic at this time. We will discharge her home with a slight increase in her baseline Lasix from 20 mg to 40 mg p.o. daily. She feels well at this time and is amenable to discharge to her home setting. DISPOSITION: The patient will discharge home, where she lives with her granddaughter. She has declined home health. She may follow up with her primary care provider, Dr. Langston, next week. DISCHARGE MEDICATIONS: Two new medications will be Medrol Dosepak and increase of her initial dose of Lasix from 20 mg daily to 40 mg p.o. daily. She will resume her other medications, which include; 1. Tylenol 650 mg p.o. q.4 hours p.r.n. 2. Ventolin 2.5 mg nebs q.4 hours p.r.n. 3. Aspirin 81 mg p.o. daily. 4. Atenolol 100 mg p.o. at bedtime. 5. Atorvastatin 20 mg p.o. at bedtime. 6. Calcium carbonate 500 mg p.o. b.i.d. 7. Cyanocobalamin 1000 mcg p.o. daily. 8. Escitalopram 5 mg p.o. daily. 9. Famotidine 20 mg p.o. daily. 10. Fish oil 2000 mg p.o. b.i.d. 11. Losartan 100 mg p.o. daily. 12. Daily multivitamin. Job ID: [id number] MTDD
== END 2018-11-29 13:10 | disposition home or self-care (01) ==
LOC: BURERS 16:41 → BURMED 18:00
PROVIDERS: ADMIT Family Medicine; ATTEND Family Medicine
DX: I13.0 Hypertensive heart and chronic kidney disease with heart failure and stage 1 through stage 4 chronic kidney disease, or unspecified chronic kidney disease (principal); I50.31 Acute diastolic (congestive) heart failure; N18.3 Chronic kidney disease, stage 3 (moderate); R91.8 Other nonspecific abnormal finding of lung field; R79.89 Other specified abnormal findings of blood chemistry; R53.81 Other malaise; E78.5 Hyperlipidemia, unspecified; F32.9 Major depressive disorder, single episode, unspecified; M19.90 Unspecified osteoarthritis, unspecified site; J45.909 Unspecified asthma, uncomplicated; D64.9 Anemia, unspecified; K21.9 Gastro-esophageal reflux disease without esophagitis; Z66 Do not resuscitate; Z79.899 Other long term (current) drug therapy; Z79.82 Long term (current) use of aspirin; Z99.89 Dependence on other enabling machines and devices
CPT/HCPCS: 36415; 71045; 71250; 80048; 80053; 82553; 83605; 83880; 84443; 84484; 85025; 93005; 96374; 96376; G0378; J1940; J7620

== ENCOUNTER 2018-12-23 20:32 | Emergency (ER) | payer MEDICARE ==
[2018-12-23 21:03] LABS: #Eosinphils 0.1 thou/uL (0.0-0.7); #Monocytes 0.5 thou/uL (0.11-0.59); #Neutrophils 5.7 thou/uL (1.40-6.50); %Basophils 0.6 % (0.0-1.0); %Eosinophils 0.8 % (0.0-10.0); %Lymphocytes 13.2 % (21.0-51.0); %Monocytes 6.3 % (0.0-10.0); %Neutrophils 79.2 % (42.0-75.0); Hemoglobin 11.2 g/dL (12.0-16.0); Mean Corpuscular Hemoglobin 31.7 pg (27.0-31.0); Mean Platelet Volume 5.4 fL (7.4-10.4); Platelet Count 208 thou/uL (130-400); RBC Distribution Width 14.1 % (11.5-14.5); Red Blood Cell (RBC) Count 3.53 mill/uL (4.20-5.40); White Blood Cell (WBC) Count 7.2 thou/uL (4.8-10.8)
[2018-12-23 21:22] LABS: ALT (SGPT) 10 U/L (8-55); AST (SGOT) 20 U/L (5-34); Albumin 3.6 g/dL (3.4-4.8); Alkaline Phosphatase 75 U/L (40-150); Anion Gap 19 mmol/L (10-20); BUN (Urea Nitrogen) 23 mg/dL (9.8-20.1); Bilirubin, Total 0.9 mg/dL (0.2-1.2); Calc. Creatinine Clearance 0 mL/min (70-130); Calcium 9.5 mg/dL (7.8-10.44); Carbon Dioxide 34 mmol/L (23-31); Estimated GFR-MDRD 40; Globulin 3.7 g/dL (2.4-3.5); Glucose 129 mg/dL (83-110); Protein, Total 7.3 g/dL (6.0-8.3)
[2018-12-23 21:26] LABS: Chloride 96 mmol/L (98-107); Potassium 4.1 mmol/L (3.5-5.1); Sodium 145 mmol/L (136-145)
[2018-12-23 21:37] LABS: CKMB 1.2 ng/mL (0-6.6)
[2018-12-23] MEDS ORDERED: Furosemide 40 MG/4 ML VIAL ONE (22:45)
--- NOTE | 2018-12-23 23:12 | RAD ---
AP PORTABLE CHEST: 12/23/2018 2103 HOURS COMPARISON: 11/27/2018 FINDINGS: Mild cardiomegaly is about the same. The vessels may be a little more congested today than before. The right hilum is prominent in size, but a CT scan done on 11/28/2018 (without contrast) showed enla rged vessels versus a 2 cm node in the right hilum, with minimal changes since the prior scan. The p atient is turned slightly to the side, which further enhances the size of this hilum. No lobar conso lidation is seen, though sensitivity to small disease in this patient's chest would be quite low. IMPRESSION: 1. Mild cardiomegaly and possible slight congestion of vessels. 2. Enlargement of the right hilum, probably made more prominent by the patient being turned slightly . See comments above. POS: HOME
== END 2018-12-23 23:20 | disposition short-term general hospital (02) ==
LOC: BURERS 20:32
DX: I11.0 Hypertensive heart disease with heart failure (principal); I50.9 Heart failure, unspecified; R79.89 Other specified abnormal findings of blood chemistry; F32.9 Major depressive disorder, single episode, unspecified; Z79.82 Long term (current) use of aspirin; Z79.899 Other long term (current) drug therapy
CPT/HCPCS: 71045; 80053; 82553; 83880; 84484; 85025; 93005; 96374; J1940

== ENCOUNTER 2019-06-26 09:44 | Emergency (ER) | payer MEDICARE ==
[2019-06-26 10:43] LABS: #Basophils 0.1 thou/uL (0.0-0.2); #Eosinphils 0.2 thou/uL (0.0-0.7); #Lymphocytes 1.3 thou/uL (1.20-3.40); #Monocytes 0.4 thou/uL (0.11-0.59); %Basophils 0.9 % (0.0-1.0); %Eosinophils 3.9 % (0.0-10.0); %Lymphocytes 21.2 % (21.0-51.0); %Monocytes 6.9 % (0.0-10.0); %Neutrophils 67.1 % (42.0-75.0); Hemoglobin 8.9 g/dL (12.0-16.0); Mean Corpuscular HGB CONC 31.8 g/dL (32.0-36.0); Mean Corpuscular Hemoglobin 31.6 pg (27.0-31.0); Mean Corpuscular Volume 99.2 fL (78.0-98.0); Mean Platelet Volume 5.1 fL (7.4-10.4); Platelet Count 271 thou/uL (130-400); Red Blood Cell (RBC) Count 2.82 mill/uL (4.20-5.40)
[2019-06-26 10:59] LABS: ALT (SGPT) 11 U/L (8-55); AST (SGOT) 24 U/L (5-34); Albumin 3.2 g/dL (3.4-4.8); Alkaline Phosphatase 72 U/L (40-110); Anion Gap 19 mmol/L (10-20); BUN (Urea Nitrogen) 61 mg/dL (9.8-20.1); Bilirubin, Total 0.3 mg/dL (0.2-1.2); Calc. Creatinine Clearance 0 mL/min (70-130); Carbon Dioxide 28 mmol/L (23-31); Chloride 98 mmol/L (98-107); Estimated GFR-MDRD 12; Globulin 3.8 g/dL (2.4-3.5); Glucose 111 mg/dL (83-110); Potassium 5.8 mmol/L (3.5-5.1); Sodium 139 mmol/L (136-145)
[2019-06-26 11:08] LABS: Bilirubin Negative (Negative); Blood, Urine Negative (Negative); Clarity Clear (Clear); Glucose, Urine (Dipstick) Negative (Negative); Leukocyte Negative (Negative); Nitrite Negative (Negative); Protein, Urine (Dipstick) Trace mg/dL (Neg-Trace); Urobilinogen 0.2 mg/dL (Less than 2)
--- NOTE | 2019-06-26 18:52 | RAD ---
PORTABLE CHEST: 06/26/19 An AP portable film at 1110 is compared with a 12/23/18 study. The heart is mildly enlarged but unchanged from before. There is no definite vascular congestion or e tigist. The right hilum is rather prominent but actually less so than the prior study. The left base is difficult to see well. There is some slight prominence of some of the lung markings that appears chr onic. IMPRESSION: Chronic changes but no definite acute findings. POS: HOME
== END 2019-06-26 12:08 | disposition short-term general hospital (02) ==
LOC: BURERS 09:44
DX: I13.0 Hypertensive heart and chronic kidney disease with heart failure and stage 1 through stage 4 chronic kidney disease, or unspecified chronic kidney disease (principal); I50.9 Heart failure, unspecified; N18.9 Chronic kidney disease, unspecified; E87.5 Hyperkalemia; G62.9 Polyneuropathy, unspecified; F32.9 Major depressive disorder, single episode, unspecified; Z79.899 Other long term (current) drug therapy; Z79.1 Long term (current) use of non-steroidal anti-inflammatories (NSAID); Z79.82 Long term (current) use of aspirin; Z79.51 Long term (current) use of inhaled steroids
CPT/HCPCS: 36415; 51701; 71045; 80053; 81003; 83605; 83880; 84484; 85025; 87040; 87086; 93005; 94760; 96360; A4353

== ENCOUNTER 2019-07-05 12:37 | Inpatient (IN) | payer MEDICARE ==
[2019-07-05 18:01] LABS: #Eosinphils 0.2 thou/uL (0.0-0.7); #Lymphocytes 1.5 thou/uL (1.20-3.40); #Monocytes 0.6 thou/uL (0.11-0.59); #Neutrophils 3.7 thou/uL (1.40-6.50); %Basophils 0.7 % (0.0-1.0); %Eosinophils 2.7 % (0.0-10.0); %Lymphocytes 25.1 % (21.0-51.0); %Monocytes 9.6 % (0.0-10.0); %Neutrophils 61.8 % (42.0-75.0); Hemoglobin 8.2 g/dL (12.0-16.0); Mean Corpuscular HGB CONC 31.4 g/dL (32.0-36.0); Mean Corpuscular Hemoglobin 31.7 pg (27.0-31.0); Mean Platelet Volume 5.4 fL (7.4-10.4); Platelet Count 186 thou/uL (130-400); RBC Distribution Width 12.3 % (11.5-14.5); Red Blood Cell (RBC) Count 2.59 mill/uL (4.20-5.40); White Blood Cell (WBC) Count 5.9 thou/uL (4.8-10.8)
[2019-07-05 18:20] LABS: ALT (SGPT) 7 U/L (8-55); AST (SGOT) 13 U/L (5-34); Alkaline Phosphatase 61 U/L (40-110); Anion Gap 13 mmol/L (10-20); BUN (Urea Nitrogen) 46 mg/dL (9.8-20.1); Bilirubin, Total Less than 0.2 mg/dL (0.2-1.2); Calc. Creatinine Clearance 26 mL/min (70-130); Calcium 8.6 mg/dL (7.8-10.44); Carbon Dioxide 33 mmol/L (23-31); Chloride 101 mmol/L (98-107); Estimated GFR-MDRD 26; Globulin 3.4 g/dL (2.4-3.5); Glucose 97 mg/dL (83-110); Protein, Total 6.4 g/dL (6.0-8.3); Sodium 142 mmol/L (136-145)
[2019-07-05] MEDS ORDERED: Atenolol 50 MG TAB PO SCH (21:00)
[2019-07-05] MEDS ORDERED: Atorvastatin Calcium 10 MG TAB PO SCH (21:00)
[2019-07-06 03:53] LABS: Bilirubin Negative (Negative); Blood, Urine Negative (Negative); Clarity Slightly Cloudy (Clear); Glucose, Urine (Dipstick) Negative (Negative); Leukocyte Trace (Negative); Nitrite Negative (Negative); Protein, Urine (Dipstick) Negative (Neg-Trace); Urine Culture Reflex No No; Urobilinogen 0.2 mg/dL (Less than 2)
[2019-07-06 04:01] LABS: RBC/HPF 0-3 HPF (0-3)
[2019-07-06 04:02] LABS: Bacteria/HPF 1+ HPF (None Seen); Squamous Epithelial 0-3 HPF (0-3)
[2019-07-06] MEDS ORDERED: Acetaminophen 325 MG TAB PO PRN (11:11)
[2019-07-06] MEDS ORDERED: Multivit, Therapeutic 1 TAB PO SCH (12:00)
[2019-07-06] MEDS ORDERED: Calcium Carbonate 500 MG ChewTAB PO SCH (12:00)
[2019-07-06] MEDS ORDERED: Escitalopram Oxalate 20 mg Tablet PO SCH (12:00)
[2019-07-06] MEDS ORDERED: Furosemide 20 MG TAB PO SCH ×2 (12:00→21:00)
[2019-07-06] MEDS ORDERED: Aspirin 81 mg Enteric Coated Tablet PO SCH (12:00)
[2019-07-06] MEDS: Calcium Carbonate 500 MG ChewTAB PO SCH (21:36)
[2019-07-06] MEDS: Famotidine 20 MG TAB PO SCH (21:37)
[2019-07-06] MEDS: Atorvastatin Calcium 10 MG TAB PO SCH (21:37)
[2019-07-06] MEDS: Furosemide 20 MG TAB PO SCH (21:37)
[2019-07-06] MEDS: Atenolol 50 MG TAB PO SCH (21:38)
[2019-07-06] MEDS ORDERED: Fish Oil 1,000 MG CAP PO SCH (21:45)
[2019-07-06] MEDS: Fish Oil 1,000 MG CAP PO SCH (21:49)
[2019-07-07 05:42] LABS: Anion Gap 13 mmol/L (10-20); BUN (Urea Nitrogen) 45 mg/dL (9.8-20.1); Calc. Creatinine Clearance 30 mL/min (70-130); Calcium 8.7 mg/dL (7.8-10.44); Carbon Dioxide 33 mmol/L (23-31); Chloride 102 mmol/L (98-107); Estimated GFR-MDRD 31; Glucose 90 mg/dL (83-110); Potassium 4.3 mmol/L (3.5-5.1); Sodium 144 mmol/L (136-145)
[2019-07-07 05:58] LABS: Hemoglobin 8.1 g/dL (12.0-16.0); Mean Corpuscular HGB CONC 30.6 g/dL (32.0-36.0); Platelet Count 186 thou/uL (130-400); RBC Distribution Width 12.6 % (11.5-14.5); White Blood Cell (WBC) Count 5.2 thou/uL (4.8-10.8)
[2019-07-07 05:59] LABS: #Eosinphils 0.3 thou/uL (0.0-0.7); #Lymphocytes 1.6 thou/uL (1.20-3.40); #Monocytes 0.5 thou/uL (0.11-0.59); #Neutrophils 2.9 thou/uL (1.40-6.50); %Basophils 0.9 % (0.0-1.0); %Eosinophils 5.8 % (0.0-10.0); %Lymphocytes 29.7 % (21.0-51.0); %Neutrophils 54.7 % (42.0-75.0); Mean Platelet Volume 5.6 fL (7.4-10.4)
[2019-07-07] MEDS: Multivit, Therapeutic 1 TAB PO SCH (09:39)
[2019-07-07] MEDS: Aspirin 81 mg Enteric Coated Tablet PO SCH (09:39)
[2019-07-07] MEDS: Calcium Carbonate 500 MG ChewTAB PO SCH ×2 (09:40→20:50)
[2019-07-07] MEDS: Escitalopram Oxalate 20 mg Tablet PO SCH (09:40)
[2019-07-07] MEDS: Furosemide 20 MG TAB PO SCH (09:40)
[2019-07-07] MEDS: Fish Oil 1,000 MG CAP PO SCH ×2 (09:40→20:50)
[2019-07-07] MEDS: Cyanocobalamin (Vitamin B-12) 1,000 MCG TAB PO SCH (09:40)
[2019-07-07 15:42] LABS: Iron 46 ug/dL (50-170); Iron Binding Capacity, Total 229 mcg/dL (265-497)
[2019-07-07 15:56] LABS: Ferritin 83.88 ng/mL (10-291)
[2019-07-07] MEDS ORDERED: Famotidine 20 MG TAB ONE (20:33)
[2019-07-07] MEDS ORDERED: Amoxicillin 125 mg/5 ml Oral Suspension ONE ×2 (20:34→21:01)
[2019-07-07] MEDS: Famotidine 20 MG TAB PO SCH (20:50)
[2019-07-07] MEDS: Furosemide 40 MG TAB PO SCH (20:50)
[2019-07-07] MEDS: Atorvastatin Calcium 10 MG TAB PO SCH (20:50)
[2019-07-07] MEDS: Atenolol 50 MG TAB PO SCH (20:51)
[2019-07-08 05:20] LABS: #Basophils 0.1 thou/uL (0.0-0.2); #Eosinphils 0.3 thou/uL (0.0-0.7); #Lymphocytes 1.3 thou/uL (1.20-3.40); #Monocytes 0.5 thou/uL (0.11-0.59); #Neutrophils 2.7 thou/uL (1.40-6.50); %Basophils 1.1 % (0.0-1.0); %Eosinophils 6.4 % (0.0-10.0); %Lymphocytes 26.8 % (21.0-51.0); %Monocytes 9.4 % (0.0-10.0); %Neutrophils 56.3 % (42.0-75.0); Hemoglobin 8.4 g/dL (12.0-16.0); Mean Corpuscular HGB CONC 31.4 g/dL (32.0-36.0); Mean Corpuscular Hemoglobin 31.6 pg (27.0-31.0); Mean Platelet Volume 5.1 fL (7.4-10.4); Platelet Count 172 thou/uL (130-400); RBC Distribution Width 12.4 % (11.5-14.5); Red Blood Cell (RBC) Count 2.67 mill/uL (4.20-5.40); White Blood Cell (WBC) Count 4.8 thou/uL (4.8-10.8)
[2019-07-08 05:36] LABS: Anion Gap 15 mmol/L (10-20); BUN (Urea Nitrogen) 43 mg/dL (9.8-20.1); Calc. Creatinine Clearance 31 mL/min (70-130); Calcium 8.7 mg/dL (7.8-10.44); Carbon Dioxide 31 mmol/L (23-31); Chloride 102 mmol/L (98-107); Estimated GFR-MDRD 32; Glucose 88 mg/dL (83-110); Potassium 4.2 mmol/L (3.5-5.1); Sodium 144 mmol/L (136-145)
[2019-07-08] MEDS: Calcium Carbonate 500 MG ChewTAB PO SCH ×2 (08:39→21:30)
[2019-07-08] MEDS: Fish Oil 1,000 MG CAP PO SCH ×2 (08:39→21:31)
[2019-07-08] MEDS: Furosemide 40 MG TAB PO SCH ×2 (08:40→21:31)
[2019-07-08] MEDS: Cyanocobalamin (Vitamin B-12) 1,000 MCG TAB PO SCH (08:40)
[2019-07-08] MEDS: Multivit, Therapeutic 1 TAB PO SCH (08:40)
[2019-07-08] MEDS: Aspirin 81 mg Enteric Coated Tablet PO SCH (08:40)
[2019-07-08] MEDS: Escitalopram Oxalate 20 mg Tablet PO SCH (08:40)
[2019-07-08] MEDS ORDERED: AMOXicillin 250 MG CAP ONE (20:48)
[2019-07-08] MEDS: AMOXicillin 250 MG CAP PO SCH (21:29)
[2019-07-08] MEDS: Atorvastatin Calcium 10 MG TAB PO SCH (21:30)
[2019-07-08] MEDS: Famotidine 20 MG TAB PO SCH (21:31)
[2019-07-08] MEDS: Atenolol 50 MG TAB PO SCH (21:31)
[2019-07-08] MEDS: Docusate 100 MG CAP PO SCH (21:34)
[2019-07-09] MEDS: Fish Oil 1,000 MG CAP PO SCH ×2 (09:19→21:44)
[2019-07-09] MEDS: Cyanocobalamin (Vitamin B-12) 1,000 MCG TAB PO SCH (09:20)
[2019-07-09] MEDS: Ferrous Sulfate 325 MG TAB PO SCH (09:20)
[2019-07-09] MEDS: Multivit, Therapeutic 1 TAB PO SCH (09:20)
[2019-07-09] MEDS: Furosemide 40 MG TAB PO SCH ×2 (09:20→21:43)
[2019-07-09] MEDS: Docusate 100 MG CAP PO SCH ×2 (09:20→21:44)
[2019-07-09] MEDS: Aspirin 81 mg Enteric Coated Tablet PO SCH (09:20)
[2019-07-09] MEDS: Escitalopram Oxalate 20 mg Tablet PO SCH (09:21)
[2019-07-09] MEDS: Calcium Carbonate 500 MG ChewTAB PO SCH ×2 (09:22→21:44)
[2019-07-09] MEDS: AMOXicillin 250 MG CAP PO SCH ×2 (09:22→21:42)
[2019-07-09] MEDS: Atorvastatin Calcium 10 MG TAB PO SCH (21:43)
[2019-07-09] MEDS: Famotidine 20 MG TAB PO SCH (21:43)
[2019-07-09] MEDS: Atenolol 50 MG TAB PO SCH (21:43)
[2019-07-10] MEDS: AMOXicillin 250 MG CAP PO SCH ×2 (08:50→20:39)
[2019-07-10] MEDS: Furosemide 40 MG TAB PO SCH ×2 (08:50→20:39)
[2019-07-10] MEDS: Fish Oil 1,000 MG CAP PO SCH ×2 (08:50→20:38)
[2019-07-10] MEDS: Ferrous Sulfate 325 MG TAB PO SCH (08:50)
[2019-07-10] MEDS: Calcium Carbonate 500 MG ChewTAB PO SCH ×2 (08:51→20:38)
[2019-07-10] MEDS: Cyanocobalamin (Vitamin B-12) 1,000 MCG TAB PO SCH (08:51)
[2019-07-10] MEDS: Escitalopram Oxalate 20 mg Tablet PO SCH (08:51)
[2019-07-10] MEDS: Docusate 100 MG CAP PO SCH ×2 (08:51→20:39)
[2019-07-10] MEDS: Multivit, Therapeutic 1 TAB PO SCH (08:51)
[2019-07-10] MEDS: Aspirin 81 mg Enteric Coated Tablet PO SCH (08:52)
[2019-07-10] MEDS: Atorvastatin Calcium 10 MG TAB PO SCH (20:39)
[2019-07-10] MEDS: Famotidine 20 MG TAB PO SCH (20:39)
[2019-07-10] MEDS: Atenolol 50 MG TAB PO SCH (20:39)
[2019-07-11] MEDS: AMOXicillin 250 MG CAP PO SCH ×2 (08:31→20:34)
[2019-07-11] MEDS: Ferrous Sulfate 325 MG TAB PO SCH (08:33)
[2019-07-11] MEDS: Aspirin 81 mg Enteric Coated Tablet PO SCH (08:33)
[2019-07-11] MEDS: Calcium Carbonate 500 MG ChewTAB PO SCH ×2 (08:33→20:37)
[2019-07-11] MEDS: Multivit, Therapeutic 1 TAB PO SCH (08:34)
[2019-07-11] MEDS: Docusate 100 MG CAP PO SCH ×2 (08:34→20:39)
[2019-07-11] MEDS: Escitalopram Oxalate 20 mg Tablet PO SCH (08:34)
[2019-07-11] MEDS: Fish Oil 1,000 MG CAP PO SCH ×2 (08:35→20:39)
[2019-07-11] MEDS: Furosemide 40 MG TAB PO SCH ×2 (08:35→20:40)
[2019-07-11] MEDS: Cyanocobalamin (Vitamin B-12) 1,000 MCG TAB PO SCH (08:35)
[2019-07-11] MEDS: Atorvastatin Calcium 10 MG TAB PO SCH (20:37)
[2019-07-11] MEDS: Atenolol 50 MG TAB PO SCH (20:37)
[2019-07-11] MEDS: Famotidine 20 MG TAB PO SCH (20:39)
[2019-07-12] MEDS: AMOXicillin 250 MG CAP PO SCH ×2 (09:09→20:22)
[2019-07-12] MEDS: Calcium Carbonate 500 MG ChewTAB PO SCH ×2 (09:10→20:28)
[2019-07-12] MEDS: Furosemide 40 MG TAB PO SCH ×2 (09:10→20:27)
[2019-07-12] MEDS: Fish Oil 1,000 MG CAP PO SCH ×2 (09:10→20:28)
[2019-07-12] MEDS: Ferrous Sulfate 325 MG TAB PO SCH (09:11)
[2019-07-12] MEDS: Aspirin 81 mg Enteric Coated Tablet PO SCH (09:11)
[2019-07-12] MEDS: Multivit, Therapeutic 1 TAB PO SCH (09:11)
[2019-07-12] MEDS: Escitalopram Oxalate 20 mg Tablet PO SCH (09:12)
[2019-07-12] MEDS: Docusate 100 MG CAP PO SCH ×2 (09:12→20:27)
[2019-07-12] MEDS: Cyanocobalamin (Vitamin B-12) 1,000 MCG TAB PO SCH (09:12)
[2019-07-12] MEDS: Atenolol 50 MG TAB PO SCH (20:22)
[2019-07-12] MEDS: Atorvastatin Calcium 10 MG TAB PO SCH (20:22)
[2019-07-12] MEDS: Famotidine 20 MG TAB PO SCH (20:27)
[2019-07-13] MEDS: AMOXicillin 250 MG CAP PO SCH ×2 (08:37→20:39)
[2019-07-13] MEDS: Ferrous Sulfate 325 MG TAB PO SCH (08:38)
[2019-07-13] MEDS: Aspirin 81 mg Enteric Coated Tablet PO SCH (08:38)
[2019-07-13] MEDS: Fish Oil 1,000 MG CAP PO SCH ×2 (08:38→20:40)
[2019-07-13] MEDS: Multivit, Therapeutic 1 TAB PO SCH (08:38)
[2019-07-13] MEDS: Calcium Carbonate 500 MG ChewTAB PO SCH ×2 (08:38→20:39)
[2019-07-13] MEDS: Docusate 100 MG CAP PO SCH ×2 (08:38→20:40)
[2019-07-13] MEDS: Cyanocobalamin (Vitamin B-12) 1,000 MCG TAB PO SCH (08:39)
[2019-07-13] MEDS: Escitalopram Oxalate 20 mg Tablet PO SCH (08:39)
[2019-07-13] MEDS: Furosemide 40 MG TAB PO SCH ×2 (08:39→20:40)
[2019-07-13] MEDS: Atorvastatin Calcium 10 MG TAB PO SCH (20:39)
[2019-07-13] MEDS: Famotidine 20 MG TAB PO SCH (20:40)
[2019-07-13] MEDS: Atenolol 50 MG TAB PO SCH (20:41)
[2019-07-13] MEDS: Polyethylene Glycol OPTH DROP 15 ML BOT EA EYE SCH (20:42)
[2019-07-14] MEDS ORDERED: AMOXicillin 250 MG CAP ONE ×2 (07:47→19:36)
[2019-07-14] MEDS: Aspirin 81 mg Enteric Coated Tablet PO SCH (09:02)
[2019-07-14] MEDS: AMOXicillin 250 MG CAP PO SCH ×2 (09:02→20:11)
[2019-07-14] MEDS: Ferrous Sulfate 325 MG TAB PO SCH (09:02)
[2019-07-14] MEDS: Cyanocobalamin (Vitamin B-12) 1,000 MCG TAB PO SCH (09:03)
[2019-07-14] MEDS: Fish Oil 1,000 MG CAP PO SCH ×2 (09:03→20:12)
[2019-07-14] MEDS: Escitalopram Oxalate 20 mg Tablet PO SCH (09:04)
[2019-07-14] MEDS: Furosemide 40 MG TAB PO SCH ×2 (09:04→20:15)
[2019-07-14] MEDS: Docusate 100 MG CAP PO SCH ×2 (09:05→20:13)
[2019-07-14] MEDS: Calcium Carbonate 500 MG ChewTAB PO SCH ×2 (09:05→20:12)
[2019-07-14] MEDS: Multivit, Therapeutic 1 TAB PO SCH (09:05)
[2019-07-14] MEDS: Polyethylene Glycol OPTH DROP 15 ML BOT EA EYE SCH ×2 (09:11→20:16)
[2019-07-14] MEDS: Atenolol 50 MG TAB PO SCH (20:13)
[2019-07-14] MEDS: Famotidine 20 MG TAB PO SCH (20:13)
[2019-07-14] MEDS: Atorvastatin Calcium 10 MG TAB PO SCH (20:14)
[2019-07-15] MEDS: Furosemide 40 MG TAB PO SCH ×2 (08:30→17:09)
[2019-07-15] MEDS: Calcium Carbonate 500 MG ChewTAB PO SCH ×2 (08:30→20:21)
[2019-07-15] MEDS: Fish Oil 1,000 MG CAP PO SCH ×2 (08:31→20:21)
[2019-07-15] MEDS: Cyanocobalamin (Vitamin B-12) 1,000 MCG TAB PO SCH (08:31)
[2019-07-15] MEDS: Aspirin 81 mg Enteric Coated Tablet PO SCH (08:31)
[2019-07-15] MEDS: Multivit, Therapeutic 1 TAB PO SCH (08:31)
[2019-07-15] MEDS: Ferrous Sulfate 325 MG TAB PO SCH (08:31)
[2019-07-15] MEDS: Escitalopram Oxalate 20 mg Tablet PO SCH (08:31)
[2019-07-15] MEDS: Docusate 100 MG CAP PO SCH ×2 (08:32→20:22)
[2019-07-15] MEDS: Polyethylene Glycol OPTH DROP 15 ML BOT EA EYE SCH ×2 (08:33→20:24)
[2019-07-15] MEDS: AMOXicillin 250 MG CAP PO SCH ×2 (08:52→20:21)
[2019-07-15] MEDS: Atorvastatin Calcium 10 MG TAB PO SCH (20:22)
[2019-07-15] MEDS: Atenolol 50 MG TAB PO SCH (20:22)
[2019-07-15] MEDS: Famotidine 20 MG TAB PO SCH (20:22)
[2019-07-16] MEDS: Furosemide 40 MG TAB PO SCH ×2 (08:25→15:51)
[2019-07-16] MEDS: Calcium Carbonate 500 MG ChewTAB PO SCH ×2 (08:25→20:33)
[2019-07-16] MEDS: Fish Oil 1,000 MG CAP PO SCH ×2 (08:25→20:31)
[2019-07-16] MEDS: AMOXicillin 250 MG CAP PO SCH ×2 (08:25→20:34)
[2019-07-16] MEDS: Aspirin 81 mg Enteric Coated Tablet PO SCH (08:26)
[2019-07-16] MEDS: Escitalopram Oxalate 20 mg Tablet PO SCH (08:26)
[2019-07-16] MEDS: Multivit, Therapeutic 1 TAB PO SCH (08:27)
[2019-07-16] MEDS: Ferrous Sulfate 325 MG TAB PO SCH (08:27)
[2019-07-16] MEDS: Docusate 100 MG CAP PO SCH ×2 (08:27→20:33)
[2019-07-16] MEDS: Cyanocobalamin (Vitamin B-12) 1,000 MCG TAB PO SCH (08:27)
[2019-07-16] MEDS: Polyethylene Glycol OPTH DROP 15 ML BOT EA EYE SCH ×2 (08:30→20:36)
[2019-07-16 15:10] VITALS: BMI 33.0
[2019-07-16] MEDS ORDERED: FLU VACC TS2019-20(65YR UP)/PF 180 MCG/0.5 ML SYRINGE IM ONE (16:15)
[2019-07-16 17:07] VITALS: TEMP 98
[2019-07-16] MEDS: Atenolol 50 MG TAB PO SCH (20:33)
[2019-07-16] MEDS: Atorvastatin Calcium 10 MG TAB PO SCH (20:33)
[2019-07-16] MEDS: Famotidine 20 MG TAB PO SCH (20:33)
[2019-07-17 05:47] VITALS: BP 142/66
[2019-07-17] MEDS: Fish Oil 1,000 MG CAP PO SCH (08:22)
[2019-07-17] MEDS: AMOXicillin 250 MG CAP PO SCH (08:22)
[2019-07-17] MEDS: Docusate 100 MG CAP PO SCH (08:23)
[2019-07-17] MEDS: Aspirin 81 mg Enteric Coated Tablet PO SCH (08:23)
[2019-07-17] MEDS: Calcium Carbonate 500 MG ChewTAB PO SCH (08:23)
[2019-07-17] MEDS: Escitalopram Oxalate 20 mg Tablet PO SCH (08:23)
[2019-07-17] MEDS: Ferrous Sulfate 325 MG TAB PO SCH (08:24)
[2019-07-17] MEDS: Multivit, Therapeutic 1 TAB PO SCH (08:25)
[2019-07-17] MEDS: Cyanocobalamin (Vitamin B-12) 1,000 MCG TAB PO SCH (08:25)
[2019-07-17] MEDS: Furosemide 40 MG TAB PO SCH (08:25)
[2019-07-17] MEDS: Polyethylene Glycol OPTH DROP 15 ML BOT EA EYE SCH (08:28)
== END 2019-07-17 14:50 | disposition home or self-care (01) | DRG 948 ==
LOC: BURMED 12:37
PROVIDERS: ADMIT Family Medicine; ATTEND Family Medicine
DX: R53.1 Weakness (principal); N17.9 Acute kidney failure, unspecified; I13.0 Hypertensive heart and chronic kidney disease with heart failure and stage 1 through stage 4 chronic kidney disease, or unspecified chronic kidney disease; I50.32 Chronic diastolic (congestive) heart failure; N39.0 Urinary tract infection, site not specified; N18.3 Chronic kidney disease, stage 3 (moderate); E11.22 Type 2 diabetes mellitus with diabetic chronic kidney disease; Z66 Do not resuscitate; E78.5 Hyperlipidemia, unspecified; F32.9 Major depressive disorder, single episode, unspecified; F41.9 Anxiety disorder, unspecified; E87.5 Hyperkalemia; I95.89 Other hypotension; E86.1 Hypovolemia; E53.8 Deficiency of other specified B group vitamins; K58.9 Irritable bowel syndrome, unspecified; K57.90 Diverticulosis of intestine, part unspecified, without perforation or abscess without bleeding; Z79.82 Long term (current) use of aspirin; Z98.42 Cataract extraction status, left eye; Z98.41 Cataract extraction status, right eye; Z90.49 Acquired absence of other specified parts of digestive tract; J44.9 Chronic obstructive pulmonary disease, unspecified; B95.2 Enterococcus as the cause of diseases classified elsewhere; R53.81 Other malaise
CPT/HCPCS: 36415; 36416; 80048; 80053; 81001; 82607; 82728; 82746; 83540; 83550; 83880; 85025; 87077; 87086; 87186; 90471; 90662; G0008

== ENCOUNTER 2019-09-16 13:44 | Inpatient (IN) | payer MEDICARE ==
[2019-09-16 14:41] LABS: #Lymphocytes 0.7 thou/uL (1.20-3.40); #Monocytes 0.6 thou/uL (0.11-0.59); #Neutrophils 6.3 thou/uL (1.40-6.50); %Basophils 0.6 % (0.0-1.0); %Eosinophils 0.5 % (0.0-10.0); %Lymphocytes 9.3 % (21.0-51.0); %Monocytes 7.2 % (0.0-10.0); %Neutrophils 82.4 % (42.0-75.0); Hemoglobin 8.7 g/dL (12.0-16.0); MDiff Complete? YES; Manual Diff?? NO; Mean Corpuscular HGB CONC 29.4 g/dL (32.0-36.0); Mean Corpuscular Hemoglobin 30.5 pg (27.0-31.0); Mean Platelet Volume 5.1 fL (7.4-10.4); Platelet Count 217 thou/uL (130-400); RBC Distribution Width 13.6 % (11.5-14.5); Red Blood Cell (RBC) Count 2.86 mill/uL (4.20-5.40); White Blood Cell (WBC) Count 7.6 thou/uL (4.8-10.8)
[2019-09-16 14:44] LABS: ALT (SGPT) 15 U/L (8-55); AST (SGOT) 25 U/L (5-34); Albumin 3.5 g/dL (3.4-4.8); Alkaline Phosphatase 79 U/L (40-110); Anion Gap 14 mmol/L (10-20); BUN (Urea Nitrogen) 24 mg/dL (9.8-20.1); Bilirubin, Total 0.7 mg/dL (0.2-1.2); Calc. Creatinine Clearance 0 mL/min (70-130); Calcium 9.1 mg/dL (7.8-10.44); Carbon Dioxide 33 mmol/L (23-31); Chloride 103 mmol/L (98-107); Estimated GFR-MDRD 37; Globulin 3.4 g/dL (2.4-3.5); Glucose 146 mg/dL (83-110); Potassium 4.9 mmol/L (3.5-5.1); Protein, Total 6.9 g/dL (6.0-8.3); Sodium 145 mmol/L (136-145)
[2019-09-16 15:02] LABS: CKMB 1.1 ng/mL (0-6.6)
--- NOTE | 2019-09-16 15:52 | RAD ---
XR Chest 1 View Portable HISTORY: Shortness of breath COMPARISON: 06/25/2019 FINDINGS: The heart is enlarged. There is pulmonary vascular congestion. Small bilateral pleural effu sions are seen. No pneumothoraces are identified.
[2019-09-16] MEDS ORDERED: Furosemide 40 MG/4 ML VIAL ONE (16:23)
[2019-09-16 16:54] LABS: Bilirubin Small (Negative); Blood, Urine Trace (Negative); Clarity Clear (Clear); Glucose, Urine (Dipstick) Negative (Negative); Leukocyte Negative (Negative); Nitrite Negative (Negative); Protein, Urine (Dipstick) 30 mg/dL (Neg-Trace); Urobilinogen 0.2 mg/dL (Less than 2)
[2019-09-16 17:01] LABS: Bacteria/HPF Rare-Few HPF (None Seen); RBC/HPF 0-3 HPF (0-3); Squamous Epithelial 0-3 HPF (0-3); WBC/HPF 0-3 HPF (0-3)
[2019-09-16 17:02] LABS: Other Microscopic Description C&S SET UP
[2019-09-16] MEDS ORDERED: Ondansetron PF 4 MG/2 ML Vial IVP PRN (19:32)
[2019-09-16] MEDS ORDERED: Acetaminophen 325 MG TAB PO PRN (19:32)
[2019-09-16] MEDS ORDERED: Ondansetron ODT 4 MG TAB SL PRN (19:32)
[2019-09-17 05:30] LABS: #Eosinphils 0.2 thou/uL (0.0-0.7); #Lymphocytes 0.8 thou/uL (1.20-3.40); #Monocytes 0.6 thou/uL (0.11-0.59); #Neutrophils 5.8 thou/uL (1.40-6.50); %Basophils 0.6 % (0.0-1.0); %Eosinophils 2.4 % (0.0-10.0); %Lymphocytes 11.3 % (21.0-51.0); %Monocytes 7.7 % (0.0-10.0); Hemoglobin 8.8 g/dL (12.0-16.0); Mean Corpuscular HGB CONC 30.1 g/dL (32.0-36.0); Mean Corpuscular Hemoglobin 31.3 pg (27.0-31.0); Mean Platelet Volume 5.5 fL (7.4-10.4); Platelet Count 207 thou/uL (130-400); RBC Distribution Width 13.3 % (11.5-14.5); Red Blood Cell (RBC) Count 2.82 mill/uL (4.20-5.40); White Blood Cell (WBC) Count 7.4 thou/uL (4.8-10.8)
[2019-09-17 05:32] LABS: Anion Gap 14 mmol/L (10-20); BUN (Urea Nitrogen) 28 mg/dL (9.8-20.1); Calc. Creatinine Clearance 37 mL/min (70-130); Calcium 9.2 mg/dL (7.8-10.44); Carbon Dioxide 35 mmol/L (23-31); Chloride 103 mmol/L (98-107); Estimated GFR-MDRD 38; Glucose 104 mg/dL (83-110); Potassium 5.4 mmol/L (3.5-5.1); Sodium 147 mmol/L (136-145)
[2019-09-17 05:52] LABS: CKMB 1.5 ng/mL (0-6.6)
--- NOTE | 2019-09-17 09:10 | RAD ---
XR Chest Pa Lat STANDARD HISTORY: Shortness of breath, CHF COMPARISON: Previous day FINDINGS: The heart is enlarged. The aorta is tortuous. There is pulmonary vascular congestion with a ccompanying small bilateral pleural effusions. There is prominence of the parahilar regions, right greater than left likely due to vascular structures. Follow-up exam would be helpful.
[2019-09-17] MEDS ORDERED: Escitalopram Oxalate 20 mg Tablet PO SCH (12:15)
[2019-09-17] MEDS ORDERED: Multivit, Therapeutic 1 TAB PO SCH (12:15)
[2019-09-17] MEDS ORDERED: Ferrous Sulfate 325 MG TAB PO SCH (12:15)
[2019-09-17] MEDS ORDERED: Polyethylene Glycol OPTH DROP 15 ML BOT EA EYE SCH (12:15)
[2019-09-17] MEDS ORDERED: Losartan Potassium 50 MG TAB PO SCH (12:15)
[2019-09-17] MEDS ORDERED: Furosemide 20 MG TAB PO SCH ×2 (12:15→21:00)
[2019-09-17] MEDS ORDERED: Aspirin 81 mg Enteric Coated Tablet PO SCH (12:15)
[2019-09-17] MEDS ORDERED: Atenolol 50 MG TAB PO SCH (12:15)
[2019-09-17] MEDS ORDERED: Calcium Carbonate + Vit D 1 TAB PO SCH (12:15)
[2019-09-17] MEDS ORDERED: Fish Oil 1,000 MG CAP PO SCH (12:15)
[2019-09-17] MEDS ORDERED: Docusate 100 MG CAP PO SCH (12:15)
[2019-09-17] MEDS ORDERED: Cyanocobalamin (Vitamin B-12) 1,000 MCG TAB PO SCH (12:15)
[2019-09-17] MEDS ORDERED: Furosemide 40 MG/4 ML VIAL SLOW IVP SCH (13:00)
--- NOTE | 2019-09-17 14:31 | CT ---
CT ABDOMEN AND PELVIS WITHOUT CONTRAST: HISTORY: Bilateral flank pain and renal failure. FINDINGS: Absence of oral and IV contrast reduces the sensitivity of the exam particularly for evaluation of so lid organs involved. There are bilateral small pleural effusions with adjacent infiltrate/atelectatic changes. The patient is post cholecystectomy. No free air or free fluid is seen in the abdomen or pelvis. No calculi are seen in the kidneys, ureters or urinary bladder. No hydroureteronephrosis is noted on either side. A normal appearing appendix is present. There is colonic diverticulosis. Uterus is present. There are v ascular calcifications without evidence of aneurysmal dilatation of the abdominal aorta. Degenerative changes are present in the spine. There is suggestion of prominence of the wall of the colon, particularly the transverse colon. IMPRESSION: 1. No CT evidence of urinary tract calculi/obstruction. 2. Colonic diverticulosis. 3. Probable colonic wall thickening, particularly in the transverse colon. Evaluation with colonoscop y would be helpful. POS: MELY
[2019-09-17] MEDS: Atorvastatin Calcium 10 MG TAB PO SCH (21:15)
[2019-09-17] MEDS: Fish Oil 1,000 MG CAP PO SCH (21:15)
[2019-09-17] MEDS: Calcium Carbonate + Vit D 1 TAB PO SCH (21:15)
[2019-09-17] MEDS: Docusate 100 MG CAP PO SCH (21:15)
[2019-09-17] MEDS: Famotidine 20 MG TAB PO SCH (21:16)
[2019-09-17] MEDS: Atenolol 50 MG TAB PO SCH (21:16)
[2019-09-17] MEDS: Acetaminophen 325 MG TAB PO SCH (21:16)
[2019-09-17] MEDS: Polyethylene Glycol OPTH DROP 15 ML BOT EA EYE SCH (21:22)
[2019-09-18 06:48] LABS: #Eosinphils 0.2 thou/uL (0.0-0.7); #Monocytes 0.4 thou/uL (0.11-0.59); #Neutrophils 3.9 thou/uL (1.40-6.50); %Basophils 0.6 % (0.0-1.0); %Eosinophils 4.4 % (0.0-10.0); %Lymphocytes 17.6 % (21.0-51.0); %Monocytes 7.8 % (0.0-10.0); %Neutrophils 69.6 % (42.0-75.0); ALT (SGPT) 12 U/L (8-55); AST (SGOT) 17 U/L (5-34); Albumin 3.1 g/dL (3.4-4.8); Alkaline Phosphatase 76 U/L (40-110); Anion Gap 13 mmol/L (10-20); BUN (Urea Nitrogen) 31 mg/dL (9.8-20.1); Bilirubin, Total 0.5 mg/dL (0.2-1.2); Calc. Creatinine Clearance 33 mL/min (70-130); Calcium 8.8 mg/dL (7.8-10.44); Carbon Dioxide 37 mmol/L (23-31); Chloride 99 mmol/L (98-107); Estimated GFR-MDRD 33; Globulin 3.2 g/dL (2.4-3.5); Glucose 99 mg/dL (83-110); Hemoglobin 8.2 g/dL (12.0-16.0); Mean Corpuscular HGB CONC 29.5 g/dL (32.0-36.0); Mean Corpuscular Hemoglobin 30.9 pg (27.0-31.0); Mean Platelet Volume 5.6 fL (7.4-10.4); Platelet Count 199 thou/uL (130-400); Potassium 4.1 mmol/L (3.5-5.1); Protein, Total 6.3 g/dL (6.0-8.3); RBC Distribution Width 13.1 % (11.5-14.5); Red Blood Cell (RBC) Count 2.66 mill/uL (4.20-5.40); Sodium 145 mmol/L (136-145); White Blood Cell (WBC) Count 5.6 thou/uL (4.8-10.8)
[2019-09-18 07:16] LABS: MDiff Complete? YES; Macrocytosis SLIGHT = 6-15 cells (100X) (0-5/hpf); Platelet Morphology Comment Appears Adequate
[2019-09-18] MEDS: Docusate 100 MG CAP PO SCH ×2 (08:27→21:18)
[2019-09-18] MEDS: Fish Oil 1,000 MG CAP PO SCH ×2 (08:27→21:18)
[2019-09-18] MEDS: Calcium Carbonate + Vit D 1 TAB PO SCH ×2 (08:27→21:18)
[2019-09-18] MEDS: Ferrous Sulfate 325 MG TAB PO SCH (08:28)
[2019-09-18] MEDS: Multivit, Therapeutic 1 TAB PO SCH (08:28)
[2019-09-18] MEDS: Escitalopram Oxalate 20 mg Tablet PO SCH (08:28)
[2019-09-18] MEDS: Aspirin 81 mg Enteric Coated Tablet PO SCH (08:29)
[2019-09-18] MEDS: Polyethylene Glycol OPTH DROP 15 ML BOT EA EYE SCH ×2 (08:30→21:29)
[2019-09-18] MEDS: Cyanocobalamin (Vitamin B-12) 1,000 MCG TAB PO SCH (08:30)
[2019-09-18] MEDS ORDERED: Losartan Potassium 50 MG TAB PO SCH (09:00)
[2019-09-18] MEDS ORDERED: Furosemide 40 MG/4 ML VIAL SLOW IVP SCH (13:00)
[2019-09-18] MEDS: Acetaminophen 325 MG TAB PO SCH (21:18)
[2019-09-18] MEDS: Atorvastatin Calcium 10 MG TAB PO SCH (21:18)
[2019-09-18] MEDS: Atenolol 50 MG TAB PO SCH (21:18)
[2019-09-18] MEDS: Famotidine 20 MG TAB PO SCH (21:18)
[2019-09-19 04:22] VITALS: BMI 34.6
[2019-09-19 05:48] LABS: ALT (SGPT) 10 U/L (8-55); AST (SGOT) 15 U/L (5-34); Alkaline Phosphatase 72 U/L (40-110); Anion Gap 15 mmol/L (10-20); BUN (Urea Nitrogen) 33 mg/dL (9.8-20.1); Bilirubin, Total 0.4 mg/dL (0.2-1.2); Calc. Creatinine Clearance 31 mL/min (70-130); Calcium 8.7 mg/dL (7.8-10.44); Carbon Dioxide 36 mmol/L (23-31); Chloride 102 mmol/L (98-107); Estimated GFR-MDRD 31; Globulin 3.2 g/dL (2.4-3.5); Glucose 91 mg/dL (83-110); Potassium 4.8 mmol/L (3.5-5.1); Protein, Total 6.2 g/dL (6.0-8.3); Sodium 148 mmol/L (136-145)
[2019-09-19 06:01] LABS: #Basophils 0.1 thou/uL (0.0-0.2); #Eosinphils 0.3 thou/uL (0.0-0.7); #Lymphocytes 1.2 thou/uL (1.20-3.40); #Monocytes 0.4 thou/uL (0.11-0.59); #Neutrophils 3.6 thou/uL (1.40-6.50); %Basophils 0.9 % (0.0-1.0); %Eosinophils 4.6 % (0.0-10.0); %Lymphocytes 21.7 % (21.0-51.0); %Monocytes 7.6 % (0.0-10.0); %Neutrophils 65.2 % (42.0-75.0); Hemoglobin 8.4 g/dL (12.0-16.0); Mean Corpuscular HGB CONC 30.3 g/dL (32.0-36.0); Mean Corpuscular Hemoglobin 32.1 pg (27.0-31.0); Mean Platelet Volume 5.9 fL (7.4-10.4); Platelet Count 214 thou/uL (130-400); RBC Distribution Width 13.6 % (11.5-14.5); Red Blood Cell (RBC) Count 2.61 mill/uL (4.20-5.40); White Blood Cell (WBC) Count 5.6 thou/uL (4.8-10.8)
[2019-09-19 07:10] LABS: MDiff Complete? YES; Macrocytosis SLIGHT = 6-15 cells (100X) (0-5/hpf); Platelet Morphology Comment Appears Adequate
--- NOTE | 2019-09-19 07:11 | RAD ---
CHEST 2 VIEWS: Date: 09/19/19 Comparison made with the 09/17/19 study. There is slightly less congestion, though there is still pulmonary edema. Bilateral pleural effusions are present, but are slightly less than before. The cardiac size is about the same. IMPRESSION: CHF with slight improvement since 09/17/19. POS: HOME
[2019-09-19] MEDS: Multivit, Therapeutic 1 TAB PO SCH (09:50)
[2019-09-19] MEDS: Fish Oil 1,000 MG CAP PO SCH ×2 (09:50→20:16)
[2019-09-19] MEDS: Calcium Carbonate + Vit D 1 TAB PO SCH ×2 (09:51→20:15)
[2019-09-19] MEDS: Escitalopram Oxalate 20 mg Tablet PO SCH (09:51)
[2019-09-19] MEDS: Docusate 100 MG CAP PO SCH ×2 (09:51→20:16)
[2019-09-19] MEDS: Aspirin 81 mg Enteric Coated Tablet PO SCH (09:51)
[2019-09-19] MEDS: Ferrous Sulfate 325 MG TAB PO SCH (09:51)
[2019-09-19] MEDS: Polyethylene Glycol OPTH DROP 15 ML BOT EA EYE SCH ×2 (09:52→20:16)
[2019-09-19] MEDS: Cyanocobalamin (Vitamin B-12) 1,000 MCG TAB PO SCH (09:52)
[2019-09-19] MEDS ORDERED: Furosemide 100 MG/10 ML VIAL SLOW IVP SCH (13:00)
[2019-09-19] MEDS: Atorvastatin Calcium 10 MG TAB PO SCH (20:15)
[2019-09-19] MEDS: Atenolol 50 MG TAB PO SCH (20:15)
[2019-09-19] MEDS: Acetaminophen 325 MG TAB PO SCH (20:15)
[2019-09-19] MEDS: Famotidine 20 MG TAB PO SCH (20:16)
[2019-09-20 05:55] LABS: Anion Gap 15 mmol/L (10-20); BUN (Urea Nitrogen) 31 mg/dL (9.8-20.1); Calc. Creatinine Clearance 31 mL/min (70-130); Calcium 8.8 mg/dL (7.8-10.44); Carbon Dioxide 36 mmol/L (23-31); Estimated GFR-MDRD 31; Glucose 85 mg/dL (83-110)
[2019-09-20 05:59] LABS: Chloride 99 mmol/L (98-107); Potassium 4.2 mmol/L (3.5-5.1); Sodium 146 mmol/L (136-145)
[2019-09-20 06:12] VITALS: BP 164/74; TEMP 98
[2019-09-20] MEDS: Ferrous Sulfate 325 MG TAB PO SCH (08:08)
[2019-09-20] MEDS: Cyanocobalamin (Vitamin B-12) 1,000 MCG TAB PO SCH (09:08)
[2019-09-20] MEDS: Fish Oil 1,000 MG CAP PO SCH (09:08)
[2019-09-20] MEDS: Calcium Carbonate + Vit D 1 TAB PO SCH (09:08)
[2019-09-20] MEDS: Escitalopram Oxalate 20 mg Tablet PO SCH (09:09)
[2019-09-20] MEDS: Multivit, Therapeutic 1 TAB PO SCH (09:09)
[2019-09-20] MEDS: Aspirin 81 mg Enteric Coated Tablet PO SCH (09:09)
[2019-09-20] MEDS: Docusate 100 MG CAP PO SCH (09:10)
[2019-09-20] MEDS: Polyethylene Glycol OPTH DROP 15 ML BOT EA EYE SCH (09:12)
[2019-09-20] MEDS ORDERED: Furosemide 40 MG/4 ML VIAL SLOW IVP SCH (13:00)
--- NOTE | 2019-09-20 18:54 | HP ---
CHIEF COMPLAINT: Shortness of breath. HISTORY OF PRESENT ILLNESS: Ms. Davis is an 88-year-old female who presented to the emergency department with complaints of increasing orthopnea and cough when supine, as well as dyspnea, dyspnea on exertion, and strong urinary odor. She has a past medical history of diastolic congestive heart failure with echocardiogram last performed on December 24, 2018, at [facility], which showed preserved left ventricular ejection fraction at 50% to 55%, diastolic dysfunction, moderately dilated left atrium, moderate mitral regurgitation, moderate aortic regurgitation, mild tricuspid regurgitation, and mild pulmonic regurgitation. In addition, she has a history of COPD without previous smoking history, but significant secondhand smoke exposure and recurrent urinary tract infections. The patient was hospitalized at the end of June for acute on chronic kidney injury that improved with IV fluids, after a prior hospitalization for chronic diastolic heart failure in which she was diuresed. She also had multifactorial generalized weakness, hyperkalemia in which they stopped her angiotensin receptor danni and hypotension as well as recurrent urinary tract infection that was treated. She was discharged home and presented in the outpatient setting and was still complaining of weakness and had some significant anemia and I admitted her to long term unit from July 05 through for strengthening. She improved during that hospitalization and was able to be discharged home. This episode, she had reported the urinary symptoms for approximately 3 to 4 days with dysuria and frequency like similar prior episodes. With respect to her breathing, she also was having some chest tightness and was still on her baseline O2 requirement at home which was 2 L/minute. In the emergency room, she was found to have congestive changes on her chest x-ray with bilateral pleural effusions and an elevated B-type natriuretic peptide. Her troponin was also in the indeterminate range, but she experienced no chest pain. Her EKG showed normal sinus rhythm with a rightward axis without ischemic changes. Therefore, I was requested to admit the patient to the floor for acute on chronic diastolic congestive heart failure exacerbation. Her initial urinalysis was significant only for trace leukocyte esterase and 4 to 6 wbc's, but a culture has been ordered and therefore she will be treated for acute cystitis until those results come back as well. In the emergency room, she was given 40 mg of Lasix. Overnight, she feels somewhat better with less orthopnea. PAST MEDICAL HISTORY: 1. Diastolic CHF, chronic. 2. COPD, on home O2 2 L/minute. 3. Major depression. 4. Insomnia. 5. Hypertension. 6. Hyperlipidemia. 7. Urinary incontinence. 8. Bilateral lower extremity venous insufficiency with chronic nonpitting edema. 9. Chronic hypoxic respiratory failure. 10. Diverticulosis. 11. IBS. 12. B12 deficiency. 13. Peripheral neuropathy. 14. Depression. 15. Normocytic anemia, on iron. PAST SURGICAL HISTORY: 1. Cholecystectomy. 2. Bilateral cataract surgery. 3. Hiatal hernia repair. 4. Radiofrequency ablation. 5. Left knee surgery. 6. Gastric surgery. ALLERGIES: TO BENADRYL, IBUPROFEN, MACROBID, TRAMADOL. SOCIAL HISTORY: The patient currently lives at home with her granddaughter. Her daughter is her major decision maker, but the granddaughter is her surrogate decision maker. She has elected in the past to be DNR, but really just wants a CPR component and does not mind medications. Denies alcohol, history of tobacco abuse, or illicit drug use. She ambulates with a walker assist at home. FAMILY HISTORY: Positive for hypertension, diabetes. MEDICATIONS: 1. Systane ophthalmic solution in each eye b.i.d. 2. Citra-3 fatty acid (fish oil) 1000 mg two p.o. b.i.d. 3. Multivitamin one p.o. daily. 4. Cozaar 100 mg p.o. daily. 5. DuoNeb q.6 hours p.r.n. 6. Furosemide 40 mg p.o. b.i.d., but admits not taking the afternoon dose recently as [facility] told her it was p.r.n. for symptoms. 7. Feosol 325 mg p.o. q.a.m. with meals. 8. Pepcid 20 mg p.o. q.h.s. 9. Escitalopram 10 mg p.o. q.a.m. 10. Colace 100 mg p.o. b.i.d. 11. B12 of 1000 mcg p.o. q.a.m. 12. Calcium carbonate 600 mg p.o. b.i.d. 13. Lipitor 20 mg p.o. q.h.s. 14. Atenolol 50 mg p.o. daily. 15. Aspirin 81 mg p.o. daily. 16. Regular Strength Tylenol 650 mg p.o. q.h.s. 17. Albuterol 3 mL nebulized q.4 hours p.r.n. shortness of breath. REVIEW OF SYSTEMS: GENERAL: The patient thinks that she may have had a fever a week or two ago before her symptoms started, but otherwise resolved. She has had some increased fatigue and weakness that is nonfocal. Denies chills. EYES: She denies any changes in her vision or pain. ENT: Denies rhinorrhea, sinus pain, or sore throat. CARDIOVASCULAR: She does admit to dyspnea on exertion and lower extremity edema , but no more edema than her baseline. Denies chest pain. Positive orthopnea increased from her baseline. RESPIRATORY: Reports shortness of breath, but no cough, no sputum. Denies wheezing. GENITOURINARY: Admits to urinary burning, but thinks that it is likely on the outside at this point. Denies any lower abdominal pain. GASTROINTESTINAL: Denies appetite changes, nausea, vomiting, or diarrhea. MUSCULOSKELETAL: Denies any new joint swelling or pain. SKIN: Denies rash. NEUROLOGIC: Denies focal weakness, tremor, problems with speech, or alteration of mentation. PHYSICAL EXAMINATION: VITAL SIGNS: Presenting vital signs in the emergency room; blood pressure 201/ 97, pulse 68, respirations 18 and nonlabored, temperature 98.4, O2 saturation 95% on 4 L of O2. At my exam; temperature 98.2, pulse 72, respirations 18, O2 saturation 99% on 2 L per nasal cannula, blood pressure 132/60. GENERAL: Well-developed, obese female, who is pleasant, alert, and oriented x3, in no acute distress with nasal cannula in place. Lying in bed. HEENT: Normocephalic, atraumatic. Pupils are equally round and reactive to light and accommodation. Extraocular muscles are intact. Nares are patent without discharge. Tongue protrudes on the midline. NECK: Supple without lymphadenopathy, thyromegaly, JVD, or bruit. HEART: Regular rate and rhythm with distant heart sounds. No murmurs, clicks, rubs, or gallops. RESPIRATORY: Diminished air entry throughout with bibasilar crackles, more pronounced on the right. ABDOMEN: Positive bowel sounds in all 4 quadrants. Soft, nontender, nondistended. No masses, guarding, or rebound tenderness. MUSCULOSKELETAL: Tenderness to palpation on bilateral thoracic paravertebral musculature with radiation to the left costovertebral angle. No midline spinal tenderness on the thorax or the lumbar spine. EXTREMITIES: No cyanosis or clubbing. The patient with 2 mm nonpitting pretibial edema at baseline versus obesity. NEUROLOGIC: Cranial nerves 2 through 12 grossly intact without focal deficits. LABORATORY DATA: CBC: White count 7.6 with 82% neutrophils and 9% lymphocytes, hemoglobin 8.7, hematocrit 29.7, platelets 217. Sodium 145, potassium 4.9, CO2 of 33, BUN 24, creatinine 1.35, calcium 9.1, glucose 146, LFTs normal, B-type natriuretic peptide 2265.6. CK-MB 1.1. Troponin I 0.052. Repeat CBC this a.m. was sodium 147, potassium 5.4, chloride 103, bicarb 35, BUN 28, creatinine 1.33, calcium 9.2. B-type natriuretic peptide 2761.8. Troponin 0.049, CK-MB 1.5. Urinalysis significant for 30 protein, trace blood, small bilirubin, 1+ amorphous crystals. IMAGING: Chest x-ray shows cardiomegaly with pulmonary vascular congestion and small bilateral pleural effusions. No pneumothorax. ASSESSMENT AND PLAN: 1. Acute on chronic diastolic congestive heart failure exacerbation, present on admission. The patient will be admitted to the floor. Due to elevation of her potassium, her angiotensin receptor danni has been held. She has been continued on her beta-danni. We will give her diuresis IV. Strict in's and out's and daily weights. Her echo is up-to-date with preserved left ventricular ejection fraction. We will have 1500 mL fluid restriction and 2 g in 24-hour sodium restriction. 2. Hyperkalemia. Again, holding her angiotensin receptor danni. We will avoid potassium at this point. 3. Thoracic paravertebral pain with left costovertebral angle tenderness. The patient's urinalysis at this point is negative for growth. She did have some calcium oxalate crystals in her urine. We will proceed with a CT scan of the abdomen and pelvis, stone protocol. Her dysuria may be due to concentrated urine and crystals. For now without a normal white count and negative urine culture, no antibiotics are indicated. 4. Chronic kidney disease, stage 3. The patient's renal function will be monitored, but is currently at baseline. 5. Indeterminate troponin. The troponin has been repeated and is trending downward. No EKG changes and has negative CK-MB. 6. Chronic obstructive pulmonary disease. The patient currently has only her baseline O2 need at this time. She does have evidence of chronic respiratory failure with hypercapnia. We will schedule nebs q.i.d. Consider putting her on maintenance medications at discharge. She does not have signs of exacerbation at this time. 7. Hypertension. She will be continued on her home regimen minus the angiotensin-receptor danni. 8. Depression. She will be continued on her escitalopram. 9. Hyperlipidemia. She will be continued on her statin. 10. Normocytic anemia. Her anemia has been worked up in the past and is stable from previous admissions. She will be continued on her supplementation which includes iron, B12, multivitamin. 11. Prophylaxis. The patient takes Pepcid at home. We will continue that and place SCDs. CODE STATUS: The patient desires chemical code only with intubation, but no CPR. Job ID: [id number] [facility]
--- NOTE | 2019-09-21 01:02 | DIS ---
DATE OF ADMISSION: 09/16/2019 DATE OF DISCHARGE: 09/20/2019 ADMISSION DIAGNOSES: 1. Acute on chronic diastolic congestive heart failure. 2. Urinary tract infection. 3. Chronic obstructive pulmonary disease without exacerbation/asthma. 4. Chronic respiratory failure with hypercapnia and hypoxia, on home O2. 5. Anemia of chronic disease. 6. Iron deficiency. 7. Chronic physical deconditioning. 8. Coronary artery disease. 9. Dyslipidemia. 10. Chronic kidney disease stage 3. 11. Hypertension. 12. Indeterminate troponin. DISCHARGE DIAGNOSES: 1. Acute on chronic diastolic congestive heart failure. 2. Urinary tract infection, ruled out. 3. Chronic obstructive pulmonary disease/asthma with mild evidence of exacerbation. 4. Anemia of chronic disease/iron deficiency, stable. 5. Hyperkalemia, resolved, off angiotensin receptor danni. 6. Thoracic degenerative disease. 7. Colonic wall thickening. 8. Chronic physical deconditioning. 9. Coronary artery disease. 10. Dyslipidemia. 11. Chronic kidney disease stage 3, stable. 12. Hypertension. 13. Chronic respiratory failure with hypercapnia and hypoxia, on home O2. PROCEDURES: 1. Chest x-ray from the date of admission shows pulmonary vascular congestion with bilateral pleural effusions, small. Chest x-ray from September 17, 2019, shows pulmonary vascular congestion with accompanying small bilateral pleural effusion. 2. Abdomen and pelvis CT, September 17, 2019, showing no evidence of urinary tract calculi or obstruction. Colonic diverticulosis. Probable colonic wall thickening, particularly in the transverse colon. Colonoscopy would be helpful. 3. Chest x-ray, September 19, 2019, showing less congestion with still some remaining pulmonary edema and bilateral pleural effusions, but slightly less than before, as well as stable cardiomegaly. LABORATORY DATA: Urine culture showed no growth at 36 hours. HISTORY AND PHYSICAL: Please see dictated report from the day of admission. HOSPITAL COURSE: Ms. Davis is an 88-year-old female, with past medical history of chronic diastolic congestive heart failure, asthma with chronic respiratory failure with hypercapnia and hypoxia, maintained on 2 L of O2 at home, who presented to the emergency department with complaints of increased orthopnea. Lab and imaging determined this to be due to exacerbation of diastolic heart failure. Her angiotensin receptor danni was held secondary to hyperkalemia, which resolved. Her beta-danni was continued and she was diuresed effectively with IV Lasix with improvement of her B-type natriuretic peptide throughout her hospital course from an initial value of 2265 with increased to 2761.8 the morning after admission with a decrease to 697.8 on the date of discharge. She had evidence of improvement in her chest x-ray and her renal function remained stable. The patient's orthopnea has improved, although she still admits to some dyspnea on exertion and would be interested in cardiac rehab to be set up at her outpatient followup visit. Her echocardiogram is up-to-date, so this was not repeated during her admission. She will be discharged home with instructions to increase her daily Lasix regimen to 40 mg b.i.d. instead of 40 mg in the a.m. and an afternoon dose p.r.n., which she was not normally taking. The patient has a history of asthma and did not have evidence of exacerbation on admission and had a normal white count and no infiltrates on her chest x-ray. She only exhibited some wheezing on the last day associated with some cough and so she will be discharged on a small course of prednisone 40 mg daily for 5 days. She has been discussed the adverse effects. She has nebulizer treatments at home that she will resume. At her followup visit, we may put her on an inhaled corticosteroid and long-acting beta-agonist to help decrease the frequency of admissions and help with her symptomatic control. The patient has a history of chronic kidney disease stage 3 and on several occasions has experienced hyperkalemia with her angiotensin receptor danni. Therefore, I recommend that she not be restarted on this as an outpatient and we will place it in her intolerance list at the clinic at followup. The patient on admission had an indeterminate troponin, which reduced down to 0.049 and had no EKG changes, chest pain or symptoms of angina. The patient initially had some dysuria and the urinalysis showed some calcium oxalate crystals. Her urine culture was negative. She also had a CT stone protocol, that ruled out obstruction or calculi; however, she did have some colonic thickening and some degenerative changes in her thoracic spine, which are probably causing her complaints. A colonoscopy can be ordered as an outpatient. In addition, we can also refer to Pain Management for injection therapy if her back pain persists. Regarding the calcium oxalate crystals pop, the patient is advised that she is on 1500 mL fluid restriction, but to drink plenty of fluids to that point so that she can flush out a concentrated urine sample, which is likely causing the dysuria. She is also going to use some barrier methods to protect the perineum from moisture and chronic incontinence. DISPOSITION: Discharged to home. CONDITION: Good. MEDICATIONS: 1. Albuterol sulfate 3 mL q.4 hours p.r.n. breakthrough shortness of breath. 2. Colace 100 mg p.o. b.i.d. 3. Vitamin B12 1000 mcg p.o. q.a.m. 4. Systane ophthalmic solution in the eye b.i.d. 5. Multivitamin one p.o. daily. 6. Feosol 325 mg p.o. q.a.m. 7. Pepcid 20 mg p.o. at bedtime. 8. DuoNeb 3 mL q.i.d. 9. Atenolol 50 mg p.o. daily. 10. Escitalopram 10 mg p.o. q.a.m. 11. Tylenol 650 mg p.o. at bedtime. 12. Furosemide 40 mg p.o. b.i.d. (increasing dose). 13. [place]-3 fatty acids two p.o. b.i.d. 14. Calcium carbonate 600 mg p.o. b.i.d. 15. Lipitor 20 mg p.o. at bedtime. 16. Aspirin 81 mg p.o. daily. 17. Prednisone 40 mg p.o. q.a.m. x5 days. Note, stop angiotensin receptor danni. FOLLOWUP: Follow up with Dr. Debbie Langston in approximately 7 to 10 days and that followup will set up for cardiac rehab as outpatient. Job ID: [id number]
== END 2019-09-20 14:30 | disposition home or self-care (01) | DRG 291 ==
LOC: BURERS 13:44 → BURMED 15:40
PROVIDERS: ADMIT Family Medicine; ATTEND Family Medicine
DX: I13.0 Hypertensive heart and chronic kidney disease with heart failure and stage 1 through stage 4 chronic kidney disease, or unspecified chronic kidney disease (principal); I50.33 Acute on chronic diastolic (congestive) heart failure; J96.11 Chronic respiratory failure with hypoxia; J96.12 Chronic respiratory failure with hypercapnia; J44.1 Chronic obstructive pulmonary disease with (acute) exacerbation; F32.9 Major depressive disorder, single episode, unspecified; E78.5 Hyperlipidemia, unspecified; G47.00 Insomnia, unspecified; Z66 Do not resuscitate; E87.5 Hyperkalemia; N18.3 Chronic kidney disease, stage 3 (moderate); D50.9 Iron deficiency anemia, unspecified; M51.34 Other intervertebral disc degeneration, thoracic region; R53.81 Other malaise; Z90.49 Acquired absence of other specified parts of digestive tract; Z98.42 Cataract extraction status, left eye; Z98.41 Cataract extraction status, right eye; Z88.8 Allergy status to other drugs, medicaments and biological substances; Z88.5 Allergy status to narcotic agent; Z79.82 Long term (current) use of aspirin; Z79.899 Other long term (current) drug therapy; Z99.81 Dependence on supplemental oxygen; D63.8 Anemia in other chronic diseases classified elsewhere; I25.10 Atherosclerotic heart disease of native coronary artery without angina pectoris
CPT/HCPCS: 36415; 71045; 71046; 74176; 80048; 80053; 81003; 81015; 82553; 83880; 84484; 85025; 87086; 93005; A4353; J1940; J7620

== ENCOUNTER 2020-07-16 09:02 | Emergency (ER) | payer MEDICARE ==
[2020-07-16 09:49] LABS: Bilirubin Negative (Negative); Blood, Urine Negative (Negative); Clarity Cloudy (Clear); Glucose, Urine (Dipstick) Negative (Negative); Ketone, Urine Negative (Negative); Leukocyte Large (Negative); Nitrite Negative (Negative); Protein, Urine (Dipstick) Negative (Neg-Trace); Specific Gravity, Urine 1.015 (1.005-1.030); Urobilinogen 0.2 mg/dL (Less than 2); pH, Urine 7.5 (5.0-9.0)
[2020-07-16 09:55] LABS: Bacteria/HPF 2+ HPF (None Seen); RBC/HPF 0-3 HPF (0-3); Squamous Epithelial 0-3 HPF (0-3); WBC/HPF Greater Than 50 HPF (0-3)
--- NOTE | 2020-07-16 10:18 | CT ---
CT ABDOMEN AND PELVIS WITHOUT CONTRAST: Date: 07/16/2020 HISTORY: Abdominal pain, concern for diverticulitis. FINDINGS: Comparison made with exam of 09/17/2019. Absence of oral and IV contrast reduces the sensitivity of the exam, particularly for evaluation of s olid organs and bowel. The lung bases are unremarkable. The patient is post cholecystectomy. No calculi seen in the kidneys, ureters, or the urinary bladder. No hydroureteronephrosis is noted on either side. There are vascula r calcifications without evidence of aneurysmal dilatation of the abdominal aorta. There are degenera tive changes in the spine. The small bowel loops are not abnormally dilated. A normal appearing appendix is present. There is co lonic diverticulosis. There is thickening of the wall of the sigmoid colon with pericolonic inflammat ory changes. Uterus is present. IMPRESSION: Sigmoid diverticulitis. POS: [facility]
[2020-07-16] MEDS ORDERED: Sulfameth/Trimethoprim DS 800-160mg TAB ONE (10:37)
== END 2020-07-16 10:30 | disposition home or self-care (01) ==
LOC: BURERS 09:02
DX: K57.32 Diverticulitis of large intestine without perforation or abscess without bleeding (principal); N39.0 Urinary tract infection, site not specified; I13.0 Hypertensive heart and chronic kidney disease with heart failure and stage 1 through stage 4 chronic kidney disease, or unspecified chronic kidney disease; I50.9 Heart failure, unspecified; N18.9 Chronic kidney disease, unspecified; I87.2 Venous insufficiency (chronic) (peripheral); K58.9 Irritable bowel syndrome, unspecified; E53.8 Deficiency of other specified B group vitamins; G62.9 Polyneuropathy, unspecified; J44.9 Chronic obstructive pulmonary disease, unspecified; Z79.82 Long term (current) use of aspirin; Z79.899 Other long term (current) drug therapy
CPT/HCPCS: 51701; 74176; 81003; 81015; 87077; 87086; 87186

== ENCOUNTER 2020-09-13 13:03 | Emergency (ER) | payer MEDICARE ==
[2020-09-13] MEDS ORDERED: Ciprofloxacin 500 MG TAB ONE (14:34)
== END 2020-09-13 14:40 | disposition home or self-care (01) ==
LOC: BURERS 13:03
DX: R30.0 Dysuria (principal); R60.0 Localized edema; Z79.82 Long term (current) use of aspirin; Z79.899 Other long term (current) drug therapy; J44.9 Chronic obstructive pulmonary disease, unspecified; N18.9 Chronic kidney disease, unspecified; I13.0 Hypertensive heart and chronic kidney disease with heart failure and stage 1 through stage 4 chronic kidney disease, or unspecified chronic kidney disease; I50.9 Heart failure, unspecified
CPT/HCPCS: 99283

== ENCOUNTER 2020-09-27 11:21 | Emergency (ER) | payer MEDICARE ==
[2020-09-27 12:21] LABS: ALT (SGPT) 14 U/L (8-55); AST (SGOT) 18 U/L (5-34); Alkaline Phosphatase 75 U/L (40-110); Anion Gap 18 mmol/L (10-20); BUN (Urea Nitrogen) 44 mg/dL (9.8-20.1); Bilirubin, Total 0.3 mg/dL (0.2-1.2); Calc. Creatinine Clearance 0 mL/min (70-130); Calcium 8.3 mg/dL (7.8-10.44); Carbon Dioxide 36 mmol/L (23-31); Globulin 3.4 g/dL (2.4-3.5); Glucose 118 mg/dL (83-110); Protein, Total 6.4 g/dL (6.0-8.3)
[2020-09-27 12:23] LABS: #Eosinphils 0.1 thou/uL (0.0-0.7); #Lymphocytes 0.9 thou/uL (1.20-3.40); #Monocytes 0.4 thou/uL (0.11-0.59); #Neutrophils 3.8 thou/uL (1.40-6.50); %Basophils 0.5 % (0.0-1.0); %Eosinophils 2.6 % (0.0-10.0); %Lymphocytes 16.6 % (21.0-51.0); %Monocytes 8.1 % (0.0-10.0); %Neutrophils 72.2 % (42.0-75.0); Anisocytosis SLIGHT = 6-15 cells (100X) (0-5/hpf); Hemoglobin 7.9 g/dL (12.0-16.0); MDiff Complete? YES; Macrocytosis SLIGHT = 6-15 cells (100X) (0-5/hpf); Mean Corpuscular HGB CONC 29.5 g/dL (32.0-36.0); Mean Corpuscular Hemoglobin 32.3 pg (27.0-31.0); Mean Platelet Volume 6.1 fL (7.4-10.4); Ovalocytes SLIGHT = 2-5 cells (100X) (0-1/hpf); Platelet Count 129 thou/uL (130-400); Poikilocytosis SLIGHT = 6-15 cells (100X) (0-5/hpf); RBC Distribution Width 15.5 % (11.5-14.5); Red Blood Cell (RBC) Count 2.45 mill/uL (4.20-5.40); White Blood Cell (WBC) Count 5.3 thou/uL (4.8-10.8)
[2020-09-27 12:25] LABS: Chloride 94 mmol/L (98-107); Sodium 144 mmol/L (136-145)
[2020-09-27 12:37] LABS: CKMB 0.9 ng/mL (0-6.6)
[2020-09-27 12:40] LABS: Bilirubin Negative (Negative); Blood, Urine Negative (Negative); Clarity Clear (Clear); Glucose, Urine (Dipstick) Negative (Negative); Ketone, Urine Negative (Negative); Leukocyte Negative (Negative); Nitrite Negative (Negative); Protein, Urine (Dipstick) Negative (Neg-Trace); Specific Gravity, Urine 1.015 (1.005-1.030); Urobilinogen 0.2 mg/dL (Less than 2)
[2020-09-27] MEDS ORDERED: Furosemide 40 MG/4 ML VIAL ONE (14:00)
[2020-09-27] MEDS ORDERED: Nitroglycerin 2% Ointment 1 INCH/1 GM Packet ONE (14:00)
[2020-09-27 14:25] LABS: SARS-CoV-2 NAA Rapid Test Not Detected (NotDetected)
--- NOTE | 2020-09-27 17:45 | RAD ---
PORTABLE CHEST: Date: 09-27-2020 An AP portable film at 1152 is compared with a 09-19-19 study. FINDINGS: There is diffuse congestion of vessels and mild pulmonary edema as well as a small right pleural eff usion. The findings are consistent with the clinical diagnosis of CHF. The cardiac size is about the same as before. Calcification is seen in the aortic arch. IMPRESSION: CHF. POS: HOME
== END 2020-09-27 15:33 | disposition short-term general hospital (02) ==
LOC: BURERS 11:21
DX: I13.0 Hypertensive heart and chronic kidney disease with heart failure and stage 1 through stage 4 chronic kidney disease, or unspecified chronic kidney disease (principal); I50.9 Heart failure, unspecified; N18.9 Chronic kidney disease, unspecified; D63.1 Anemia in chronic kidney disease; R77.8 Other specified abnormalities of plasma proteins; J44.9 Chronic obstructive pulmonary disease, unspecified; Z79.82 Long term (current) use of aspirin; Z79.51 Long term (current) use of inhaled steroids; Z79.899 Other long term (current) drug therapy
CPT/HCPCS: 0240U; 36415; 51701; 71045; 80053; 81003; 82553; 83880; 84484; 85025; 93005; 96374; J1940; J7620

== ENCOUNTER 2020-10-01 12:44 | Inpatient (IN) | payer MEDICARE ==
[2020-10-01] MEDS ORDERED: Bisacodyl 10 MG SUPP PR PRN (15:16)
[2020-10-01] MEDS ORDERED: PATIENT'S HOME MEDICATION PO PRN (16:08)
[2020-10-01] MEDS: Calcium Carbonate 600 MG + Vit D TAB PO SCH (17:04)
[2020-10-01] MEDS ORDERED: FLU VACC QS2020-21(65YR UP)/PF 240 MCG/0.7 ML SYRINGE IM ONE ×2 (18:30→21:00)
[2020-10-01] MEDS ORDERED: Furosemide 20 MG TAB PO SCH (21:00)
[2020-10-01] MEDS: Famotidine 20 MG TAB PO SCH (21:08)
[2020-10-01] MEDS: Acetaminophen 325 MG TAB PO SCH (21:08)
[2020-10-01] MEDS: Amoxicillin/Potassium Clav 500 MG TAB PO SCH (21:08)
[2020-10-01] MEDS: Fish Oil 1,000 MG CAP PO SCH (21:09)
[2020-10-01] MEDS: Docusate 100 MG CAP PO SCH (21:09)
[2020-10-01] MEDS: Atorvastatin Calcium 10 MG TAB PO SCH (21:09)
[2020-10-01] MEDS: Polyethylene Glycol OPTH DROP 15 ML BOT EA EYE SCH (21:09)
[2020-10-02] MEDS: Furosemide 20 MG TAB PO SCH ×2 (06:03→13:31)
[2020-10-02 06:16] LABS: #Basophils 0.1 thou/uL (0.0-0.2); #Eosinphils 0.3 thou/uL (0.0-0.7); #Lymphocytes 0.9 thou/uL (1.20-3.40); #Monocytes 0.4 thou/uL (0.11-0.59); #Neutrophils 3.4 thou/uL (1.40-6.50); %Eosinophils 5.2 % (0.0-10.0); %Lymphocytes 17.4 % (21.0-51.0); %Monocytes 7.6 % (0.0-10.0); %Neutrophils 68.8 % (42.0-75.0); Anisocytosis SLIGHT = 6-15 cells (100X) (0-5/hpf); Hemoglobin 9.2 g/dL (12.0-16.0); MDiff Complete? YES; Macrocytosis SLIGHT = 6-15 cells (100X) (0-5/hpf); Mean Corpuscular Hemoglobin 32.6 pg (27.0-31.0); Ovalocytes SLIGHT = 2-5 cells (100X) (0-1/hpf); Platelet Count 140 thou/uL (130-400); Poikilocytosis SLIGHT = 6-15 cells (100X) (0-5/hpf); RBC Distribution Width 15.9 % (11.5-14.5); Red Blood Cell (RBC) Count 2.82 mill/uL (4.20-5.40)
[2020-10-02 06:26] LABS: Anion Gap 22 mmol/L (10-20); BUN (Urea Nitrogen) 44 mg/dL (9.8-20.1); Calc. Creatinine Clearance 26 mL/min (70-130); Calcium 8.6 mg/dL (7.8-10.44); Carbon Dioxide 38 mmol/L (23-31); Glucose 95 mg/dL (83-110)
[2020-10-02 06:29] LABS: Chloride 92 mmol/L (98-107); Potassium 4.8 mmol/L (3.5-5.1); Sodium 147 mmol/L (136-145)
[2020-10-02] MEDS: Fish Oil 1,000 MG CAP PO SCH ×2 (08:06→20:44)
[2020-10-02] MEDS: Multivit, Therapeutic 1 TAB PO SCH (08:06)
[2020-10-02] MEDS: Folic Acid 1 MG TAB PO SCH (08:06)
[2020-10-02] MEDS: Calcium Carbonate 600 MG + Vit D TAB PO SCH ×2 (08:06→16:30)
[2020-10-02] MEDS: Ferrous Sulfate 325 MG TAB PO SCH (08:06)
[2020-10-02] MEDS: Amoxicillin/Potassium Clav 500 MG TAB PO SCH ×2 (08:06→20:45)
[2020-10-02] MEDS: Famotidine 20 MG TAB PO SCH ×2 (08:06→20:45)
[2020-10-02] MEDS: Aspirin 81 mg Enteric Coated Tablet PO SCH (08:06)
[2020-10-02] MEDS: Docusate 100 MG CAP PO SCH ×4 (08:07→20:50)
[2020-10-02] MEDS: Cyanocobalamin (Vitamin B-12) 1,000 MCG TAB PO SCH (08:07)
[2020-10-02] MEDS: Atenolol 50 MG TAB PO SCH (08:07)
[2020-10-02] MEDS: Allopurinol 100 MG TAB PO SCH (08:09)
[2020-10-02] MEDS: Polyethylene Glycol OPTH DROP 15 ML BOT EA EYE SCH ×2 (08:09→20:44)
[2020-10-02] MEDS: Guaifenesin DM 100-10/5 ML UDCUP PO PRN (08:10)
[2020-10-02] MEDS: Acetaminophen 325 MG TAB PO SCH (20:45)
[2020-10-02] MEDS: Atorvastatin Calcium 10 MG TAB PO SCH (20:45)
[2020-10-03] MEDS: Furosemide 20 MG TAB PO SCH ×2 (06:05→16:16)
[2020-10-03] MEDS: Fish Oil 1,000 MG CAP PO SCH ×2 (10:09→20:31)
[2020-10-03] MEDS: Calcium Carbonate 600 MG + Vit D TAB PO SCH ×2 (10:10→16:16)
[2020-10-03] MEDS: Multivit, Therapeutic 1 TAB PO SCH (10:11)
[2020-10-03] MEDS: Amoxicillin/Potassium Clav 500 MG TAB PO SCH ×2 (10:12→20:31)
[2020-10-03] MEDS: Cyanocobalamin (Vitamin B-12) 1,000 MCG TAB PO SCH (10:12)
[2020-10-03] MEDS: Docusate 100 MG CAP PO SCH ×2 (10:12→20:39)
[2020-10-03] MEDS: Atenolol 50 MG TAB PO SCH (10:12)
[2020-10-03] MEDS: Folic Acid 1 MG TAB PO SCH (10:12)
[2020-10-03] MEDS: Ferrous Sulfate 325 MG TAB PO SCH (10:12)
[2020-10-03] MEDS: Aspirin 81 mg Enteric Coated Tablet PO SCH (10:12)
[2020-10-03] MEDS: Allopurinol 100 MG TAB PO SCH (10:13)
[2020-10-03] MEDS: Famotidine 20 MG TAB PO SCH ×2 (10:14→20:31)
[2020-10-03] MEDS: Polyethylene Glycol OPTH DROP 15 ML BOT EA EYE SCH ×2 (10:14→20:30)
[2020-10-03] MEDS: Acetaminophen 325 MG TAB PO SCH (20:30)
[2020-10-03] MEDS: Atorvastatin Calcium 10 MG TAB PO SCH (20:31)
[2020-10-04] MEDS: Furosemide 20 MG TAB PO SCH ×2 (06:42→13:40)
[2020-10-04] MEDS: Famotidine 20 MG TAB PO SCH ×2 (09:16→20:47)
[2020-10-04] MEDS: Amoxicillin/Potassium Clav 500 MG TAB PO SCH ×2 (09:16→20:47)
[2020-10-04] MEDS: Aspirin 81 mg Enteric Coated Tablet PO SCH (09:16)
[2020-10-04] MEDS: Calcium Carbonate 600 MG + Vit D TAB PO SCH ×2 (09:16→17:13)
[2020-10-04] MEDS: Atenolol 50 MG TAB PO SCH (09:17)
[2020-10-04] MEDS: Folic Acid 1 MG TAB PO SCH (09:19)
[2020-10-04] MEDS: Cyanocobalamin (Vitamin B-12) 1,000 MCG TAB PO SCH (09:19)
[2020-10-04] MEDS: Multivit, Therapeutic 1 TAB PO SCH (09:19)
[2020-10-04] MEDS: Allopurinol 100 MG TAB PO SCH (09:19)
[2020-10-04] MEDS: Ferrous Sulfate 325 MG TAB PO SCH (09:19)
[2020-10-04] MEDS: Fish Oil 1,000 MG CAP PO SCH ×2 (09:19→20:47)
[2020-10-04] MEDS: Docusate 100 MG CAP PO SCH ×2 (09:19→20:49)
[2020-10-04] MEDS: Polyethylene Glycol OPTH DROP 15 ML BOT EA EYE SCH ×2 (09:20→20:46)
[2020-10-04] MEDS: Atorvastatin Calcium 10 MG TAB PO SCH (20:47)
[2020-10-04] MEDS: Acetaminophen 325 MG TAB PO SCH (20:47)
[2020-10-05 05:32] LABS: Anion Gap 18 mmol/L (10-20); BUN (Urea Nitrogen) 44 mg/dL (9.8-20.1); Calc. Creatinine Clearance 25 mL/min (70-130); Calcium 8.5 mg/dL (7.8-10.44); Carbon Dioxide 40 mmol/L (23-31); Glucose 100 mg/dL (83-110)
[2020-10-05 05:33] LABS: #Eosinphils 0.3 thou/uL (0.0-0.7); #Monocytes 0.4 thou/uL (0.11-0.59); #Neutrophils 3.3 thou/uL (1.40-6.50); %Basophils 0.7 % (0.0-1.0); %Eosinophils 5.4 % (0.0-10.0); %Lymphocytes 20.3 % (21.0-51.0); %Neutrophils 65.6 % (42.0-75.0); Hemoglobin 8.7 g/dL (12.0-16.0); Mean Corpuscular HGB CONC 28.5 g/dL (32.0-36.0); Mean Corpuscular Hemoglobin 31.6 pg (27.0-31.0); Mean Platelet Volume 5.6 fL (7.4-10.4); Platelet Count 111 thou/uL (130-400); RBC Distribution Width 15.7 % (11.5-14.5); Red Blood Cell (RBC) Count 2.75 mill/uL (4.20-5.40); White Blood Cell (WBC) Count 5.1 thou/uL (4.8-10.8)
[2020-10-05 05:36] LABS: Chloride 95 mmol/L (98-107); Potassium 4.2 mmol/L (3.5-5.1); Sodium 148 mmol/L (136-145)
[2020-10-05] MEDS: Furosemide 20 MG TAB PO SCH ×2 (05:49→14:14)
[2020-10-05] MEDS: Guaifenesin DM 100-10/5 ML UDCUP PO PRN (05:52)
[2020-10-05 06:02] LABS: MDiff Complete? YES; Macrocytosis SLIGHT = 6-15 cells (100X) (0-5/hpf); Platelet Morphology Comment Appears Decreased; Rouleaux Formation SLIGHT = 1-5 cells (100X) (None Seen)
[2020-10-05] MEDS: Folic Acid 1 MG TAB PO SCH (09:50)
[2020-10-05] MEDS: Atenolol 50 MG TAB PO SCH (09:50)
[2020-10-05] MEDS: Docusate 100 MG CAP PO SCH ×2 (09:52→20:17)
[2020-10-05] MEDS: Allopurinol 100 MG TAB PO SCH (09:52)
[2020-10-05] MEDS: Polyethylene Glycol OPTH DROP 15 ML BOT EA EYE SCH ×2 (09:52→20:18)
[2020-10-05] MEDS: Multivit, Therapeutic 1 TAB PO SCH (09:53)
[2020-10-05] MEDS: Ferrous Sulfate 325 MG TAB PO SCH (09:53)
[2020-10-05] MEDS: Calcium Carbonate 600 MG + Vit D TAB PO SCH ×2 (09:53→16:11)
[2020-10-05] MEDS: Fish Oil 1,000 MG CAP PO SCH ×2 (09:54→20:16)
[2020-10-05] MEDS: Cyanocobalamin (Vitamin B-12) 1,000 MCG TAB PO SCH (09:54)
[2020-10-05] MEDS: Famotidine 20 MG TAB PO SCH ×2 (09:54→20:15)
[2020-10-05] MEDS: Aspirin 81 mg Enteric Coated Tablet PO SCH (09:54)
[2020-10-05] MEDS: Amoxicillin/Potassium Clav 500 MG TAB PO SCH ×2 (09:54→20:16)
[2020-10-05] MEDS: Atorvastatin Calcium 10 MG TAB PO SCH (20:15)
[2020-10-05] MEDS: Acetaminophen 325 MG TAB PO SCH (20:16)
[2020-10-06] MEDS: Furosemide 20 MG TAB PO SCH ×2 (05:31→13:28)
[2020-10-06] MEDS: Docusate 100 MG CAP PO SCH ×2 (08:36→22:32)
[2020-10-06] MEDS: Cyanocobalamin (Vitamin B-12) 1,000 MCG TAB PO SCH (08:38)
[2020-10-06] MEDS: Calcium Carbonate 600 MG + Vit D TAB PO SCH ×2 (08:38→16:43)
[2020-10-06] MEDS: Folic Acid 1 MG TAB PO SCH (08:38)
[2020-10-06] MEDS: Famotidine 20 MG TAB PO SCH (08:38)
[2020-10-06] MEDS: Ferrous Sulfate 325 MG TAB PO SCH (08:39)
[2020-10-06] MEDS: Aspirin 81 mg Enteric Coated Tablet PO SCH (08:39)
[2020-10-06] MEDS: Amoxicillin/Potassium Clav 500 MG TAB PO SCH (08:39)
[2020-10-06] MEDS: Atenolol 50 MG TAB PO SCH (08:39)
[2020-10-06] MEDS: Allopurinol 100 MG TAB PO SCH (08:39)
[2020-10-06] MEDS: Multivit, Therapeutic 1 TAB PO SCH (08:39)
[2020-10-06] MEDS: Polyethylene Glycol OPTH DROP 15 ML BOT EA EYE SCH ×2 (08:40→21:13)
[2020-10-06] MEDS: Fish Oil 1,000 MG CAP PO SCH ×2 (08:41→21:11)
[2020-10-06] MEDS: Acetaminophen 325 MG TAB PO SCH (21:12)
[2020-10-06] MEDS: Atorvastatin Calcium 10 MG TAB PO SCH (21:12)
[2020-10-06] MEDS: guaiFENesin ER 600 MG TAB PO SCH (21:24)
[2020-10-07] MEDS: Furosemide 20 MG TAB PO SCH ×2 (06:00→15:25)
[2020-10-07] MEDS: guaiFENesin ER 600 MG TAB PO SCH ×2 (08:57→21:50)
[2020-10-07] MEDS: Fish Oil 1,000 MG CAP PO SCH ×2 (08:58→21:49)
[2020-10-07] MEDS: Multivit, Therapeutic 1 TAB PO SCH (08:58)
[2020-10-07] MEDS: Cyanocobalamin (Vitamin B-12) 1,000 MCG TAB PO SCH (08:59)
[2020-10-07] MEDS: Atenolol 50 MG TAB PO SCH (08:59)
[2020-10-07] MEDS: Calcium Carbonate 600 MG + Vit D TAB PO SCH ×2 (09:00→15:26)
[2020-10-07] MEDS: Aspirin 81 mg Enteric Coated Tablet PO SCH (09:00)
[2020-10-07] MEDS: Ferrous Sulfate 325 MG TAB PO SCH (09:00)
[2020-10-07] MEDS: Famotidine 20 MG TAB PO SCH (09:00)
[2020-10-07] MEDS: Folic Acid 1 MG TAB PO SCH (09:00)
[2020-10-07] MEDS: Allopurinol 100 MG TAB PO SCH (09:01)
[2020-10-07] MEDS: Docusate 100 MG CAP PO SCH ×2 (09:02→21:56)
[2020-10-07] MEDS: Polyethylene Glycol OPTH DROP 15 ML BOT EA EYE SCH ×2 (09:10→21:50)
[2020-10-07] MEDS: Atorvastatin Calcium 10 MG TAB PO SCH (21:49)
[2020-10-07] MEDS: Acetaminophen 325 MG TAB PO SCH (21:50)
[2020-10-07] MEDS: Melatonin 3 MG TAB PO PRN (22:06)
[2020-10-08 05:50] LABS: Anion Gap 17 mmol/L (10-20); BUN (Urea Nitrogen) 44 mg/dL (9.8-20.1); Calc. Creatinine Clearance 26 mL/min (70-130); Calcium 8.4 mg/dL (7.8-10.44); Carbon Dioxide 40 mmol/L (23-31); Glucose 92 mg/dL (83-110)
[2020-10-08 05:54] LABS: Chloride 93 mmol/L (98-107); Potassium 3.5 mmol/L (3.5-5.1); Sodium 147 mmol/L (136-145)
[2020-10-08 06:05] LABS: #Eosinphils 0.2 thou/uL (0.0-0.7); #Monocytes 0.4 thou/uL (0.11-0.59); #Neutrophils 2.5 thou/uL (1.40-6.50); %Eosinophils 5.7 % (0.0-10.0); %Lymphocytes 24.4 % (21.0-51.0); %Monocytes 8.8 % (0.0-10.0); %Neutrophils 60.1 % (42.0-75.0); Hemoglobin 8.1 g/dL (12.0-16.0); MDiff Complete? YES; Macrocytosis SLIGHT = 6-15 cells (100X) (0-5/hpf); Mean Corpuscular HGB CONC 29.2 g/dL (32.0-36.0); Mean Corpuscular Hemoglobin 31.6 pg (27.0-31.0); Mean Platelet Volume 6.2 fL (7.4-10.4); Ovalocytes SLIGHT = 2-5 cells (100X) (0-1/hpf); Platelet Count 95 thou/uL (130-400); Platelet Morphology Comment Appears Decreased; RBC Distribution Width 15.8 % (11.5-14.5); Red Blood Cell (RBC) Count 2.56 mill/uL (4.20-5.40); White Blood Cell (WBC) Count 4.2 thou/uL (4.8-10.8)
[2020-10-08] MEDS: Furosemide 20 MG TAB PO SCH ×2 (06:10→14:04)
[2020-10-08] MEDS: Famotidine 20 MG TAB PO SCH (09:41)
[2020-10-08] MEDS: Folic Acid 1 MG TAB PO SCH (09:41)
[2020-10-08] MEDS: Allopurinol 100 MG TAB PO SCH (09:41)
[2020-10-08] MEDS: Docusate 100 MG CAP PO SCH ×2 (09:46→20:42)
[2020-10-08] MEDS: Ferrous Sulfate 325 MG TAB PO SCH (09:47)
[2020-10-08] MEDS: Fish Oil 1,000 MG CAP PO SCH ×2 (09:47→20:43)
[2020-10-08] MEDS: Multivit, Therapeutic 1 TAB PO SCH (09:47)
[2020-10-08] MEDS: guaiFENesin ER 600 MG TAB PO SCH ×2 (09:47→20:43)
[2020-10-08] MEDS: Aspirin 81 mg Enteric Coated Tablet PO SCH (09:48)
[2020-10-08] MEDS: Cyanocobalamin (Vitamin B-12) 1,000 MCG TAB PO SCH (09:48)
[2020-10-08] MEDS: Calcium Carbonate 600 MG + Vit D TAB PO SCH ×2 (09:48→17:31)
[2020-10-08] MEDS: Atenolol 50 MG TAB PO SCH (09:49)
[2020-10-08] MEDS: Polyethylene Glycol OPTH DROP 15 ML BOT EA EYE SCH ×2 (10:01→20:44)
--- NOTE | 2020-10-08 16:02 | CT ---
CT OF THE BRAIN WITHOUT CONTRAST: 10/08/20 Comparison is made with the prior CT exam dated 03/07/18. The prior exam shows old strokes involving the right basal ganglia and capsular regions. Small lacuna r infarcts are seen in the left basal ganglia and thalamus. Today's exam does not show any new findings to strongly suggest acute stroke. Small acute events woul d be masked by these chronic changes. There is no sign of bleeding, mass or edema. The calvarium appe ars intact. There may be a little soft tissue swelling over the left forehead but the underlying bone appears intact. The visible paranasal sinuses are clear. IMPRESSION: 1. No acute intracranial findings. 2. Atrophy and abundant chronic ischemic changes. Evidence of old strokes on both the left and r ight. Preliminary report delivered to the floor at approximately 1405 on 10/08/20. POS: HOME
[2020-10-08] MEDS: Acetaminophen 325 MG TAB PO SCH (20:40)
[2020-10-08] MEDS: Melatonin 3 MG TAB PO PRN (20:40)
[2020-10-08] MEDS: Atorvastatin Calcium 10 MG TAB PO SCH (20:40)
[2020-10-09] MEDS: Furosemide 20 MG TAB PO SCH ×2 (06:20→14:22)
[2020-10-09] MEDS: Calcium Carbonate 600 MG + Vit D TAB PO SCH ×2 (08:43→17:19)
[2020-10-09] MEDS: Fish Oil 1,000 MG CAP PO SCH ×2 (08:43→20:38)
[2020-10-09] MEDS: Aspirin 81 mg Enteric Coated Tablet PO SCH ×2 (08:43→08:44)
[2020-10-09] MEDS: Allopurinol 100 MG TAB PO SCH (08:44)
[2020-10-09] MEDS: Ferrous Sulfate 325 MG TAB PO SCH (08:44)
[2020-10-09] MEDS: Docusate 100 MG CAP PO SCH ×2 (08:44→20:37)
[2020-10-09] MEDS: guaiFENesin ER 600 MG TAB PO SCH ×2 (08:44→20:38)
[2020-10-09] MEDS: Multivit, Therapeutic 1 TAB PO SCH (08:45)
[2020-10-09] MEDS: Atenolol 50 MG TAB PO SCH (08:45)
[2020-10-09] MEDS: Cyanocobalamin (Vitamin B-12) 1,000 MCG TAB PO SCH (08:45)
[2020-10-09] MEDS: Folic Acid 1 MG TAB PO SCH (08:46)
[2020-10-09] MEDS: Polyethylene Glycol OPTH DROP 15 ML BOT EA EYE SCH ×2 (08:49→22:59)
[2020-10-09] MEDS: Melatonin 3 MG TAB PO PRN (20:37)
[2020-10-09] MEDS: Acetaminophen 325 MG TAB PO SCH (20:39)
[2020-10-09] MEDS: Atorvastatin Calcium 10 MG TAB PO SCH (20:39)
[2020-10-10] MEDS: Furosemide 20 MG TAB PO SCH ×2 (05:41→15:36)
[2020-10-10] MEDS: Polyethylene Glycol OPTH DROP 15 ML BOT EA EYE SCH ×3 (06:27→20:26)
[2020-10-10] MEDS: guaiFENesin ER 600 MG TAB PO SCH ×2 (09:27→20:21)
[2020-10-10] MEDS: Allopurinol 100 MG TAB PO SCH (09:27)
[2020-10-10] MEDS: Folic Acid 1 MG TAB PO SCH (09:27)
[2020-10-10] MEDS: Ferrous Sulfate 325 MG TAB PO SCH (09:27)
[2020-10-10] MEDS: Atenolol 50 MG TAB PO SCH (09:28)
[2020-10-10] MEDS: Docusate 100 MG CAP PO SCH ×3 (09:28→20:26)
[2020-10-10] MEDS: Calcium Carbonate 600 MG + Vit D TAB PO SCH ×2 (09:31→16:57)
[2020-10-10] MEDS: Fish Oil 1,000 MG CAP PO SCH ×2 (09:31→20:23)
[2020-10-10] MEDS: Cyanocobalamin (Vitamin B-12) 1,000 MCG TAB PO SCH (09:31)
[2020-10-10] MEDS: Multivit, Therapeutic 1 TAB PO SCH (09:31)
[2020-10-10] MEDS: Acetaminophen 325 MG TAB PO SCH (20:23)
[2020-10-10] MEDS: Atorvastatin Calcium 10 MG TAB PO SCH (20:25)
[2020-10-10] MEDS: Melatonin 3 MG TAB PO PRN (20:26)
[2020-10-11] MEDS: Furosemide 20 MG TAB PO SCH ×2 (05:20→13:12)
[2020-10-11] MEDS: guaiFENesin ER 600 MG TAB PO SCH ×2 (09:25→20:41)
[2020-10-11] MEDS: Fish Oil 1,000 MG CAP PO SCH ×2 (09:25→20:41)
[2020-10-11] MEDS: Folic Acid 1 MG TAB PO SCH (09:26)
[2020-10-11] MEDS: Cyanocobalamin (Vitamin B-12) 1,000 MCG TAB PO SCH (09:26)
[2020-10-11] MEDS: Allopurinol 100 MG TAB PO SCH (09:26)
[2020-10-11] MEDS: Atenolol 50 MG TAB PO SCH (09:26)
[2020-10-11] MEDS: Calcium Carbonate 600 MG + Vit D TAB PO SCH (09:29)
[2020-10-11] MEDS: Ferrous Sulfate 325 MG TAB PO SCH (09:29)
[2020-10-11] MEDS: Aspirin 81 mg Enteric Coated Tablet PO SCH (09:29)
[2020-10-11] MEDS: Docusate 100 MG CAP PO SCH ×2 (09:30→20:43)
[2020-10-11] MEDS: Polyethylene Glycol OPTH DROP 15 ML BOT EA EYE SCH ×2 (09:30→20:39)
[2020-10-11] MEDS: Multivit, Therapeutic 1 TAB PO SCH (09:30)
[2020-10-11] MEDS ORDERED: Calcium Carbonate 600 MG + Vit D TAB ONE (16:30)
[2020-10-11] MEDS: Acetaminophen 325 MG TAB PO SCH (20:40)
[2020-10-11] MEDS: Melatonin 3 MG TAB PO PRN (20:40)
[2020-10-11] MEDS: Atorvastatin Calcium 10 MG TAB PO SCH (20:42)
[2020-10-12] MEDS: Calcium Carbonate 600 MG + Vit D TAB PO SCH ×3 (03:31→17:25)
[2020-10-12] MEDS: Furosemide 20 MG TAB PO SCH ×2 (04:49→14:29)
[2020-10-12 05:22] LABS: #Eosinphils 0.3 thou/uL (0.0-0.7); #Monocytes 0.4 thou/uL (0.11-0.59); #Neutrophils 3.7 thou/uL (1.40-6.50); %Basophils 0.5 % (0.0-1.0); %Eosinophils 5.4 % (0.0-10.0); %Lymphocytes 19.1 % (21.0-51.0); %Monocytes 7.7 % (0.0-10.0); %Neutrophils 67.4 % (42.0-75.0); Hemoglobin 8.3 g/dL (12.0-16.0); Mean Corpuscular HGB CONC 28.8 g/dL (32.0-36.0); Mean Corpuscular Hemoglobin 31.6 pg (27.0-31.0); Mean Platelet Volume 6.7 fL (7.4-10.4); Platelet Count 114 thou/uL (130-400); Red Blood Cell (RBC) Count 2.61 mill/uL (4.20-5.40); White Blood Cell (WBC) Count 5.4 thou/uL (4.8-10.8)
[2020-10-12 05:34] LABS: Anion Gap 18 mmol/L (10-20); BUN (Urea Nitrogen) 52 mg/dL (9.8-20.1); Calc. Creatinine Clearance 21 mL/min (70-130); Carbon Dioxide 36 mmol/L (23-31); Glucose 134 mg/dL (83-110)
[2020-10-12 05:38] LABS: Chloride 96 mmol/L (98-107); Potassium 3.3 mmol/L (3.5-5.1); Sodium 147 mmol/L (136-145)
[2020-10-12 05:42] LABS: MDiff Complete? YES; Macrocytosis SLIGHT = 6-15 cells (100X) (0-5/hpf); Platelet Morphology Comment Appears Decreased
[2020-10-12] MEDS: Allopurinol 100 MG TAB PO SCH (09:29)
[2020-10-12] MEDS: guaiFENesin ER 600 MG TAB PO SCH ×2 (09:29→20:59)
[2020-10-12] MEDS: Docusate 100 MG CAP PO SCH (09:29)
[2020-10-12] MEDS: Ferrous Sulfate 325 MG TAB PO SCH (09:29)
[2020-10-12] MEDS: Fish Oil 1,000 MG CAP PO SCH ×2 (09:29→20:59)
[2020-10-12] MEDS: Aspirin 81 mg Enteric Coated Tablet PO SCH (09:29)
[2020-10-12] MEDS: Folic Acid 1 MG TAB PO SCH (09:29)
[2020-10-12] MEDS: Multivit, Therapeutic 1 TAB PO SCH (09:30)
[2020-10-12] MEDS: Cyanocobalamin (Vitamin B-12) 1,000 MCG TAB PO SCH (09:30)
[2020-10-12] MEDS: Atenolol 50 MG TAB PO SCH (09:32)
[2020-10-12] MEDS: Polyethylene Glycol OPTH DROP 15 ML BOT EA EYE SCH ×2 (09:33→21:00)
[2020-10-12] MEDS: Acetaminophen 325 MG TAB PO SCH (20:59)
[2020-10-12] MEDS: Melatonin 3 MG TAB PO PRN (21:00)
[2020-10-12] MEDS: Atorvastatin Calcium 10 MG TAB PO SCH (21:00)
[2020-10-13] MEDS: Docusate 100 MG CAP PO SCH ×3 (04:11→21:10)
[2020-10-13] MEDS: Polyethylene Glycol OPTH DROP 15 ML BOT EA EYE SCH ×2 (08:40→21:08)
[2020-10-13] MEDS: Ferrous Sulfate 325 MG TAB PO SCH (08:40)
[2020-10-13] MEDS: guaiFENesin ER 600 MG TAB PO SCH ×2 (08:41→21:10)
[2020-10-13] MEDS: Potassium Chloride 20 MEQ TAB PO SCH (08:41)
[2020-10-13] MEDS: Multivit, Therapeutic 1 TAB PO SCH (08:41)
[2020-10-13] MEDS: Cyanocobalamin (Vitamin B-12) 1,000 MCG TAB PO SCH (08:41)
[2020-10-13] MEDS: Atenolol 50 MG TAB PO SCH (08:41)
[2020-10-13] MEDS: Allopurinol 100 MG TAB PO SCH (08:44)
[2020-10-13] MEDS: Furosemide 40 MG TAB PO SCH (08:44)
[2020-10-13] MEDS: Aspirin 81 mg Enteric Coated Tablet PO SCH (08:45)
[2020-10-13] MEDS: Fish Oil 1,000 MG CAP PO SCH ×2 (08:45→21:10)
[2020-10-13] MEDS: Calcium Carbonate 600 MG + Vit D TAB PO SCH ×2 (08:45→17:20)
[2020-10-13] MEDS: Folic Acid 1 MG TAB PO SCH (08:48)
[2020-10-13] MEDS: Acetaminophen 325 MG TAB PO SCH (21:09)
[2020-10-13] MEDS: Atorvastatin Calcium 10 MG TAB PO SCH (21:11)
[2020-10-13] MEDS: Melatonin 3 MG TAB PO PRN (21:15)
[2020-10-14 05:59] LABS: BUN (Urea Nitrogen) 52 mg/dL (9.8-20.1); Calc. Creatinine Clearance 26 mL/min (70-130); Calcium 8.2 mg/dL (7.8-10.44); Carbon Dioxide 37 mmol/L (23-31); Glucose 92 mg/dL (83-110); Potassium 3.9 mmol/L (3.5-5.1); Sodium 146 mmol/L (136-145)
[2020-10-14 06:00] LABS: Anion Gap 16 mmol/L (10-20); Chloride 97 mmol/L (98-107)
[2020-10-14 06:02] LABS: Band 4 % (5-11); Eosinophils 5 % (0-10); Hemoglobin 8.1 g/dL (12.0-16.0); Lymphocytes 25 % (21-51); MDiff Complete? YES; Macrocytosis SLIGHT = 6-15 cells (100X) (0-5/hpf); Mean Corpuscular HGB CONC 29.4 g/dL (32.0-36.0); Mean Platelet Volume 5.4 fL (7.4-10.4); Monocytes 6 % (0-10); Neutrophil 60 % (42-75); Platelet Count 108 thou/uL (130-400); Platelet Morphology Comment Appears Decreased; RBC Distribution Width 15.7 % (11.5-14.5); Red Blood Cell (RBC) Count 2.53 mill/uL (4.20-5.40); White Blood Cell (WBC) Count 4.2 thou/uL (4.8-10.8)
[2020-10-14] MEDS: Docusate 100 MG CAP PO SCH ×2 (09:18→20:55)
[2020-10-14] MEDS: Atenolol 50 MG TAB PO SCH (09:22)
[2020-10-14] MEDS: guaiFENesin ER 600 MG TAB PO SCH ×2 (09:23→20:57)
[2020-10-14] MEDS: Fish Oil 1,000 MG CAP PO SCH ×2 (09:24→20:55)
[2020-10-14] MEDS: Cyanocobalamin (Vitamin B-12) 1,000 MCG TAB PO SCH (09:25)
[2020-10-14] MEDS: Allopurinol 100 MG TAB PO SCH (09:25)
[2020-10-14] MEDS: Folic Acid 1 MG TAB PO SCH (09:25)
[2020-10-14] MEDS: Multivit, Therapeutic 1 TAB PO SCH (09:26)
[2020-10-14] MEDS: Aspirin 81 mg Enteric Coated Tablet PO SCH (09:26)
[2020-10-14] MEDS: Potassium Chloride 20 MEQ TAB PO SCH (09:27)
[2020-10-14] MEDS: Calcium Carbonate 600 MG + Vit D TAB PO SCH ×2 (09:27→17:10)
[2020-10-14] MEDS: Ferrous Sulfate 325 MG TAB PO SCH (09:27)
[2020-10-14] MEDS: Furosemide 40 MG TAB PO SCH ×2 (09:28→13:45)
[2020-10-14] MEDS: Polyethylene Glycol OPTH DROP 15 ML BOT EA EYE SCH ×2 (09:31→22:25)
[2020-10-14 13:05] VITALS: BMI 30.7
[2020-10-14] MEDS: Acetaminophen 325 MG TAB PO SCH (20:56)
[2020-10-14] MEDS: Atorvastatin Calcium 10 MG TAB PO SCH (20:57)
[2020-10-14] MEDS: Melatonin 3 MG TAB PO PRN (20:58)
[2020-10-15] MEDS: guaiFENesin ER 600 MG TAB PO SCH ×2 (09:03→20:48)
[2020-10-15] MEDS: Potassium Chloride 20 MEQ TAB PO SCH (09:03)
[2020-10-15] MEDS: Fish Oil 1,000 MG CAP PO SCH ×2 (09:03→20:48)
[2020-10-15] MEDS: Folic Acid 1 MG TAB PO SCH (09:07)
[2020-10-15] MEDS: Multivit, Therapeutic 1 TAB PO SCH (09:07)
[2020-10-15] MEDS: Allopurinol 100 MG TAB PO SCH (09:07)
[2020-10-15] MEDS: Ferrous Sulfate 325 MG TAB PO SCH (09:07)
[2020-10-15] MEDS: Aspirin 81 mg Enteric Coated Tablet PO SCH (09:07)
[2020-10-15] MEDS: Atenolol 50 MG TAB PO SCH (09:07)
[2020-10-15] MEDS: Furosemide 40 MG TAB PO SCH ×2 (09:08→13:59)
[2020-10-15] MEDS: Docusate 100 MG CAP PO SCH ×2 (09:09→20:50)
[2020-10-15] MEDS: Cyanocobalamin (Vitamin B-12) 1,000 MCG TAB PO SCH (09:09)
[2020-10-15] MEDS: Calcium Carbonate 600 MG + Vit D TAB PO SCH ×2 (09:10→17:33)
[2020-10-15] MEDS: Polyethylene Glycol OPTH DROP 15 ML BOT EA EYE SCH ×2 (09:10→20:50)
[2020-10-15 10:28] LABS: SARS-CoV-2 MS2 Positive; SARS-CoV-2 N Gene Negative; SARS-CoV-2 S Gene Negative; SARS-CoV-2 by NAA Not Detected (NotDetected); SARS-CoV-2 orf1ab Negative
[2020-10-15] MEDS ORDERED: Acetaminophen 325 MG TAB PO PRN (14:05)
[2020-10-15 16:58] VITALS: TEMP 98.1
[2020-10-15] MEDS: Melatonin 3 MG TAB PO PRN (20:49)
[2020-10-15] MEDS: Atorvastatin Calcium 10 MG TAB PO SCH (20:49)
[2020-10-15] MEDS: Acetaminophen 325 MG TAB PO SCH (20:49)
[2020-10-16 05:45] LABS: Anion Gap 14 mmol/L (10-20); BUN (Urea Nitrogen) 52 mg/dL (9.8-20.1); Calc. Creatinine Clearance 28 mL/min (70-130); Calcium 8.2 mg/dL (7.8-10.44); Carbon Dioxide 37 mmol/L (23-31); Chloride 97 mmol/L (98-107); Glucose 90 mg/dL (83-110); Potassium 3.9 mmol/L (3.5-5.1); Sodium 144 mmol/L (136-145)
[2020-10-16 06:11] VITALS: BP 134/60
[2020-10-16] MEDS: guaiFENesin ER 600 MG TAB PO SCH (08:54)
[2020-10-16] MEDS: Fish Oil 1,000 MG CAP PO SCH (08:54)
[2020-10-16] MEDS: Multivit, Therapeutic 1 TAB PO SCH (08:55)
[2020-10-16] MEDS: Potassium Chloride 20 MEQ TAB PO SCH (08:55)
[2020-10-16] MEDS: Atenolol 50 MG TAB PO SCH (08:55)
[2020-10-16] MEDS: Allopurinol 100 MG TAB PO SCH (08:56)
[2020-10-16] MEDS: Folic Acid 1 MG TAB PO SCH (08:56)
[2020-10-16] MEDS: Furosemide 40 MG TAB PO SCH (08:56)
[2020-10-16] MEDS: Aspirin 81 mg Enteric Coated Tablet PO SCH (08:56)
[2020-10-16] MEDS: Calcium Carbonate 600 MG + Vit D TAB PO SCH (08:56)
[2020-10-16] MEDS: Ferrous Sulfate 325 MG TAB PO SCH (08:56)
[2020-10-16] MEDS: Cyanocobalamin (Vitamin B-12) 1,000 MCG TAB PO SCH (08:59)
[2020-10-16] MEDS: Docusate 100 MG CAP PO SCH (09:12)
[2020-10-16] MEDS: Polyethylene Glycol OPTH DROP 15 ML BOT EA EYE SCH (09:12)
--- NOTE | 2020-10-16 19:47 | DIS ---
DATE OF ADMISSION: 10/01/2020 DATE OF DISCHARGE: 10/16/2020 ADMISSION DIAGNOSES: 1. 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 2. Chronic respiratory failure with hypoxia and hypercapnia. 3. Chronic obstructive pulmonary disease. 4. Chronic kidney disease, stage 3. 5. Anemia of chronic disease. 6. Coronary artery disease. 7. Dyslipidemia. 8. Hypertension. 9. Physical deconditioning. 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 HISTORY AND PHYSICAL: Please see written summary from the date of admission. PROCEDURES: Brain CT on October 08, 2020, showing no acute intracranial findings. Atrophy and abundant chronic ischemic changes. Evidence of old strokes in both the left and right. FPC COURSE: Ms. Davis is an 89-year-old female on home O2 secondary to chronic respiratory failure with hypoxia and hypercapnia due to COPD and chronic diastolic congestive heart failure, who is independent in the home, who presented to [facility] on September 27 with shortness of breath. She was admitted and treated for acute on chronic exacerbation of diastolic congestive heart failure with preserved ejection fraction. An echocardiogram was performed on September 29 that showed left ventricular ejection fraction at 55% to 60%. Left atrium is moderately to severely dilated. Mitral annular calcification is present. Mild mitral regurgitation is present. Moderate aortic stenosis is present. Mild aortic regurgitation is noted. Severe tricuspid regurgitation. Pulmonary artery systolic pressure at 98 mmHg. The patient was not placed on SHANIKA inhibitor secondary to a previous history of hyperkalemia with these agents in the context of chronic kidney disease stage 3, with baseline creatinine of 1.3 to 1.8. The patient was given IV Lasix for diuresis and responded well to that, but was physically deconditioned and was transferred to our assisted [place] for further treatment. During her stay here, she tolerated 40 mg of Lasix b.i.d. and her renal function remained stable prior to her last week here. We did see a slight increase in her creatinine to jf of 2.06. This was resolved with holding one afternoon dose of furosemide. Two days following that, her creatinine is back to 1.59, which is closer to her baseline. During her stay, her weight was monitored daily. Her incoming weight was 158 pounds and her outgoing weight is 160 pounds 8 ounces. Regarding her chronic anemia, her hemoglobin remained in low 8s to low 9s during her stay. She did have an episode of thrombocytopenia, which was worsened with the addition of H2 danni for GI prophylaxis. This was discontinued. She also was pending placement, and SARS-CoV-2 PCR was performed and was not detected on October 14, 2020. During her prior hospital stay, her daughter reported seeing some drawing of the left mouth that we did not appreciate on exam and some questionable memory loss during her hospitalization and assisted stay. This also was not appreciated on examination. A CT scan of the brain was performed that showed old bilateral infarcts and chronic ischemic white matter changes. There were no acute findings. The neurological symptoms were not reproduced on exam. PHYSICAL EXAMINATION: On the date of discharge, VITAL SIGNS: Temperature 98.1; pulse 80; blood pressure 134/60; respirations 18; and O2 saturation 97% on 3 L per nasal cannula, which is her home dose of oxygen. GENERAL: Well-developed, well-nourished female, in no acute distress, sitting up in chair, alert and oriented x4. HEENT: Nares are patent without discharge. Tongue protrudes in the midline. NECK: Supple without lymphadenopathy, thyromegaly, JVD, or bruit. HEART: Regular rate and rhythm with a 2/6 systolic ejection murmur best heard in right upper sternal border. LUNGS: She does have barrel chest appearance. She has minimal tight wheezing to bilateral bases, which is a dramatic improvement from her admission in which she had diffuse/mild expiratory wheezing throughout. There are no crackles. ABDOMEN: Positive bowel sounds in all 4 quadrants. Soft, nontender, and nondistended. No masses, guarding, or rebound tenderness. EXTREMITIES: No cyanosis or clubbing. No pitting edema. The patient has chronic nonpitting 3+ edema to bilateral lower extremities that is longstanding. NEUROLOGIC: Cranial nerves II through XII grossly intact without focal deficits. DISCHARGE INSTRUCTIONS: The patient will be discharged with instructions to continue Lasix 40 mg twice daily, weigh on arrival at home as a baseline weight and monitor weight daily. She will notify home health or her physician for a weight gain of 3 pounds or more in 24 hours or 5 pounds or more in 1 week. She is to limit her sodium consumption to less than 2 g in 24 hours. She is to limit her fluid intake to less than 2 L in 24 hours. [facility] and will follow up with her PCP in approximately 7 days, at which point, she will need a repeat basic metabolic profile to review her BUN and creatinine. MEDICATIONS: 1. [place]-3 fatty acids/fish oil 2000 mg p.o. b.i.d. 2. Melatonin 3 mg p.o. at bedtime p.r.n. 3. Systane ophthalmic solution applied at each eye daily b.i.d. as needed for dryness. 4. Multivitamin one p.o. daily. 5. DuoNeb 3 mL nebulized q.6 hours. 6. Folvite 1 mg p.o. daily. 7. Feosol 325 mg p.o. q.a.m. 8. Escitalopram 10 mg p.o. q.a.m. 9. Docusate 100 mg p.o. b.i.d. 10. Vitamin B12 of 1000 mcg p.o. q.a.m. 11. Calcium carbonate 600 mg p.o. b.i.d. 12. Lipitor 20 mg p.o. at bedtime. 13. Atenolol 50 mg p.o. daily. 14. Aspirin 81 mg p.o. daily. 15. Mucinex ER 1200 mg p.o. q.12 hours. 16. Potassium 20 mEq p.o. q.a.m. 17. Furosemide 40 mg p.o. b.i.d. 18. Calcium carbonate plus vitamin D of 600 plus 400 one p.o. b.i.d. 19. Allopurinol 100 mg p.o. daily. DISPOSITION: Discharged to home. CONDITION: Good. FOLLOWUP: Follow up will be with PCP Dr. Harris at [facility] in approximately 7 days. She will need a BMP at the time of her reassessment or sooner as needed. Job ID: [id number] [facility]
== END 2020-10-16 12:15 | disposition home or self-care (01) | DRG 291 ==
LOC: BURMED 13:50
PROVIDERS: ADMIT Family Medicine; ATTEND Family Medicine
DX: I13.0 Hypertensive heart and chronic kidney disease with heart failure and stage 1 through stage 4 chronic kidney disease, or unspecified chronic kidney disease (principal); I50.33 Acute on chronic diastolic (congestive) heart failure; J96.11 Chronic respiratory failure with hypoxia; J96.12 Chronic respiratory failure with hypercapnia; E87.1 Hypo-osmolality and hyponatremia; N76.4 Abscess of vulva; N18.30 Chronic kidney disease, stage 3 unspecified; J44.9 Chronic obstructive pulmonary disease, unspecified; D63.1 Anemia in chronic kidney disease; E78.5 Hyperlipidemia, unspecified; R53.81 Other malaise; I25.10 Atherosclerotic heart disease of native coronary artery without angina pectoris; Z99.81 Dependence on supplemental oxygen; Z86.73 Personal history of transient ischemic attack (TIA), and cerebral infarction without residual deficits; I34.0 Nonrheumatic mitral (valve) insufficiency; I35.0 Nonrheumatic aortic (valve) stenosis; D69.6 Thrombocytopenia, unspecified; Z20.822 Contact with and (suspected) exposure to COVID-19; E87.6 Hypokalemia; K58.9 Irritable bowel syndrome, unspecified; E53.8 Deficiency of other specified B group vitamins; Z90.49 Acquired absence of other specified parts of digestive tract; Z98.49 Cataract extraction status, unspecified eye; F17.200 Nicotine dependence, unspecified, uncomplicated
CPT/HCPCS: 36415; 70450; 80048; 85025; 87635; 90471; 90662; 94640; G0008; J7620; U0003; U0005